=== PATIENT | male | born 1945 | race Caucasian/White ===

== ENCOUNTER 2018-01-01 09:57 | Inpatient (IN) | payer MEDICARE, BC ==
[~2018-01-01 09:57] MED LIST: EPINEPHrine 10 ML SYRINGE (0.1 MG/ML) ONE; SODIUM BICARB 8.4% 50 ML SYR (1 MEQ/ML) ONE
[2018-01-01 10:32] LABS: Glucose,Whole Blood 83 mg/dL (75-99)
[2018-01-01 10:57] LABS: ABG HCO3 17 mmol/L (21-25); ABG Oxygen Saturation 97.9 % (94-97); ABG PCO2 34 mmHg (35-45); ABG PO2 >400 mmHg (83-108); ABG TCO2 18 mmol/L (19-24)
--- NOTE | 2018-01-01 11:01 | ED ---
General Adult HPI - General Chief complaint: Cardiac Arrest/CPR Stated complaint: CARDIAC ARREST Source: EMS Mode of arrival: EMS Limitations: altered mental status - History of Present Illness Initial comments: Dictation was produced using [employer] dictation software. please excuse any grammatical, word or spelling errors. Chief Complaint: 72-year-old male with past medical history of end-stage renal disease on dialysis, cardiomyopathy, gout presents after cardiac arrest. History of Present Illness: Patient unable to provide HPI this time secondary to mental status. He is obtunded. Patient brought in by EMS. Approximately 30 minutes prior to arrival patient syncopized at the stop of the stairs and he was found to be asystole by EMS. CPR was started. Patient was undergoing CPR for approximately 10 minutes by prehospital staff. - Related Data Home Medications Medication Instructions Recorded Confirmed Acetaminophen/Diphenhydramine 1 tab PO HS 01/01/18 01/01/18 [Tylenol PM 500-25mg] Allopurinol [Zyloprim] 100 mg PO DAILY 01/01/18 01/01/18 Aspirin EC [Ecotrin Low Dose] 81 mg PO DAILY 01/01/18 01/01/18 Calcium Acetate [Phoslo] 667 mg PO ACHS 01/01/18 01/01/18 Docusate [Colace] 100 mg PO BID PRN 01/01/18 01/01/18 Ethyl Chloride [place] 1 spray TOPICAL TUTHSA 01/01/18 01/01/18 FLUoxetine HCL [PROzac] 40 mg PO DAILY 01/01/18 01/01/18 Fluticasone Nasal [place] [Flonase 2 spr EA NOSTRIL DAILY 01/01/18 01/01/18 Nasal [place]] Furosemide [Lasix] 60 mg PO BID 01/01/18 01/01/18 Gabapentin [Neurontin] 100 mg PO DAILY 01/01/18 01/01/18 Gabapentin [Neurontin] 200 mg PO HS 01/01/18 01/01/18 Lisinopril [Zestril] 10 mg PO SUMOWEFR 01/01/18 01/01/18 Loratadine [Claritin] 10 mg PO DAILY 01/01/18 01/01/18 Midodrine [ProAmatine] 10 mg PO DIRECTED 01/01/18 01/01/18 Multivits,Th W-Ca,Fe,Oth Min 1 tab PO DAILY 01/01/18 01/01/18 [Therapeutic M] Mupirocin 2% Oint [Bactroban 2% 1 applic TOPICAL BID 01/01/18 01/01/18 Oint] Omeprazole [PriLOSEC] 40 mg PO DAILY 01/01/18 01/01/18 Simvastatin [Zocor] 20 mg PO HS 01/01/18 01/01/18 amLODIPine [Norvasc] 10 mg PO DAILY 01/01/18 01/01/18 traMADol HCL [Ultram] 50 mg PO Q6HR 01/01/18 01/01/18 Allergies Allergy/AdvReac Type Severity Reaction Status Date / Time No Known Allergies Allergy Verified 01/01/18 10:55 Review of Systems ROS Statement: Those systems with pertinent positive or pertinent negative responses have been documented in the HPI. ROS Other: All systems not noted in ROS Statement are negative. Past Medical History Past Medical History: Unable to Obtain History of Any Multi-Drug Resistant Organisms: Unobtainable Past Surgical History: Unable to Obtain Past Psychological History: Unable to Obtain Smoking Status: Unknown if ever smoked Past Alcohol Use History: Unable to Obtain Past Drug Use History: Unable to Obtain - Past Family History Father History Unknown: Yes Additional Family Medical History / Comment(s): PT WAS ADOPTED Mother History Unknown: Yes Additional Family Medical History / Comment(s): PT WAS ADOPTED General Exam - General Exam Comments Initial Comments: PHYSICAL EXAM: General Impression: Obtunded HEENT: Abrasion to the left forehead. Pupils fixed however not dilated Cardiovascular: Pulseless Chest: Bilateral breath sounds Abdomen: Fluid wave, nonrigid abdomen Musculoskeletal: No asymmetrical peripheral edema to the lower extremities Motor: No movement Neurological: No movement, pupils 4 mm and reactive Skin: Intact with no visualized rashes Limitations: altered mental status Course Vital Signs 01/01/18 01/01/18 01/01/18 09:57 09:58 10:23 Temperature 95.5 F L Pulse Rate 0 L 105 H 79 Respiratory 0 L 16 20 Rate Blood Pressure 147/56 105/59 O2 Sat by Pulse 88 L 96 100 Oximetry 01/01/18 01/01/18 01/01/18 10:53 11:05 11:28 Temperature Pulse Rate 86 85 Respiratory 20 20 Rate Blood Pressure 85/50 75/50 109/59 O2 Sat by Pulse 100 100 100 Oximetry 01/01/18 01/01/18 01/01/18 12:00 12:30 13:06 Temperature 95 F L 95 F L Pulse Rate 87 93 87 Respiratory 20 18 20 Rate Blood Pressure 120/60 108/62 104/44 O2 Sat by Pulse 100 100 100 Oximetry 01/01/18 01/01/18 01/01/18 13:19 14:04 14:16 Temperature 95.3 F L 95.3 F L Pulse Rate 96 83 89 Respiratory 20 20 18 Rate Blood Pressure 100/42 98/54 88/42 O2 Sat by Pulse 100 100 100 Oximetry 01/01/18 14:26 Temperature Pulse Rate 92 Respiratory 20 Rate Blood Pressure 109/45 O2 Sat by Pulse 100 Oximetry Procedures - Arterial Line No standard instances Consent Obtained: emergent situation Time Out Performed: Yes Size (Gauge): 18 Technique Used: guide wire technique Post-Procedure: line sutured into place Patient Tolerated Procedure: well Complications: none - Central Line Placement Left SC Consent Obtained: emergent situation Time Out Performed: No Patient Placed on Monitor/Pulse Ox: Yes MD Prep: mask, gown, gloves Central Line Prep: Chlorhexidine scrub Ultrasound Used for Placement: No Central Line Lumen Inserted: triple Central Line Position: good blood return Dressing Applied: Tegaderm Post Procedure X-Ray: tip of catheter in good position Patient Tolerated Procedure: well Complications: none - FAST Exam Fluid in Morison's pouch: Yes Fluid in Splenorenal Junction: Yes Fluid around bladder, Transverse view: Yes Fluid around bladder, Sagittal view: Yes Limited Echocardiogram view: subxiphoid Fluid in Pericardial Sac: No Gross Wall Motion Abnormality: Yes - Intubation Time Out Performed: No Laryngoscope: Unger Size: 4 ET Tube Size: 7.5 ET Tube Uncuffed: No Tube Secured Depth (cm): 23 Tube Secured Location: lips Tube Placement Confirmation: visualized tube passing through cords Patient Tolerated Procedure: well Intubation Complications: none Medical Decision Making - Medical Decision Making ED course: 72-year-old male past medical history of end-stage renal disease presents after cardiac arrest. Patient was pulseless upon arrival. CPR was continued. Patient was intubated. Patient was GCS 3. Multiple rounds of CPR was performed. Return of spontaneous circulation was achieved. Right radial arterial line and left subclavian line were placed. EKG was faxed to adjustment examiner. Pending discussion with cardiology.Laboratory evaluation obtained. CBC is unremarkable. Coag panel shows INR 1.2. Blood gas shows mild acidosis with decreased bicarbonate signifying metabolic acidosis. Metabolic panel shows potassium of 5.6. Patient did receive IV calcium during code. Patient also given some bicarb. Carbon dioxide is 15. Lactic acidosis of 19.1. He is currently on fluids. Mild nonspecific transaminitis. Troponin level was 0.035. Premature peptide is 50,000. Urinalysis shows 33 white blood cells. There is suspicion that patient experience an arrhythmia causing him to have cardiac arrest. Return of spontaneous circulation was achieved. Patient is stable on levo for drip. X-ray was obtained showing good positioning of ET tube and subclavian. Computed tomography scan of the head was obtained showing no evidence of acute intracranial process. Computed tomography scan of the chest abdomen pelvis was obtained showing cirrhotic liver. There is concern that intra-abdominal fluid may represent hemorrhaging. There also appears to be possible coronary artery aneurysm. Patient started on intravenous antibiotics. He will be admitted to intensive care unit for vent-dependent respiratory failure, undifferentiated shock, cardiac arrest EKG Interpretation: A 12 lead EKG was obtained. It was interpreted by myself and attending physician. There is a P wave before every QRS complex. Rate is 122. Rhythm is wide-complex tachycardia, [place] interval undetermined, QS 150, QTc 5:30. There appears to be diffuse ST segment depressions to the lateral leads. - Lab Data Result diagrams: 01/04/18 04:45 01/04/18 04:45 Lab Results 01/01/18 01/01/18 01/01/18 Range/Units 10:11 10:44 10:44 WBC 9.2 (3.8-10.6) k/uL RBC 3.36 L (4.30-5.90) m/uL Hgb 9.9 L (13.0-17.5) gm/dL Hct 31.7 L (39.0-53.0) % MCV 94.1 (80.0-100.0) fL MCH 29.5 (25.0-35.0) pg MCHC 31.4 (31.0-37.0) g/dL RDW 14.7 (11.5-15.5) % Plt Count 406 (150-450) k/uL Neutrophils % 66 % Lymphocytes % 21 % Monocytes % 4 % Eosinophils % 5 % Basophils % 0 % Neutrophils # 6.1 (1.3-7.7) k/uL Lymphocytes # 2.0 (1.0-4.8) k/uL Monocytes # 0.4 (0-1.0) k/uL Eosinophils # 0.5 (0-0.7) k/uL Basophils # 0.0 (0-0.2) k/uL Hypochromasia Moderate PT (9.0-12.0) sec INR (<1.2) Sample Site ABG pH (7.35-7.45) ABG pCO2 (35-45) mmHg ABG pO2 (83-108) mmHg ABG HCO3 (21-25) mmol/L ABG Total CO2 (19-24) mmol/L ABG O2 Saturation (94-97) % ABG Base Excess mmol/L FiO2 % Sodium 137 (137-145) mmol/L Potassium 5.6 H (3.5-5.1) mmol/L Chloride 100 (98-107) mmol/L Carbon Dioxide 15 L (22-30) mmol/L Anion Gap 22 mmol/L BUN 98 H* (9-20) mg/dL Creatinine 7.90 H* (0.66-1.25) mg/dL Est GFR (CKD-EPI)AfAm 7 (>60 ml/min/1.73 sqM) Est GFR (CKD-EPI)NonAf 6 (>60 ml/min/1.73 sqM) Glucose 116 H (74-99) mg/dL POC Glucose (mg/dL) 83 (75-99) mg/dL POC Glu Cardiac Rehab Nurse ID Jf Claros Estimated Ave Glu mg/dL Hemoglobin A1c (4.0-6.0) % Lactic Ac Sepsis Rflx Plasma Lactic Acid Ruben (0.7-2.0) mmol/L Calcium 9.6 (8.4-10.2) mg/dL Phosphorus 8.2 H* (2.5-4.5) mg/dL Magnesium 1.7 (1.6-2.3) mg/dL Total Bilirubin 0.7 (0.2-1.3) mg/dL AST 61 H (17-59) U/L ALT 19 L (21-72) U/L Alkaline Phosphatase 132 H (38-126) U/L Total Creatine Kinase (55-170) U/L CK-MB (CK-2) (0.0-2.4) ng/mL CK-MB (CK-2) Rel Index Troponin I (0.000-0.034) ng/mL NT-Pro-B Natriuret Pep pg/mL Total Protein 5.7 L (6.3-8.2) g/dL Albumin 2.9 L (3.5-5.0) g/dL Cortisol ug/dL Urine Color Urine Appearance (Clear) Urine pH (5.0-8.0) Ur Specific [place] (1.001-1.035) Urine Protein (Negative) Urine Glucose (UA) (Negative) Urine Ketones (Negative) Urine Blood (Negative) Urine Nitrite (Negative) Urine Bilirubin (Negative) Urine Urobilinogen (<2.0) mg/dL Ur Leukocyte Esterase (Negative) Urine RBC (0-5) /hpf Urine WBC (0-5) /hpf Urine Sperm (None) /hpf Urine Opiates Screen (NotDetected) Ur Oxycodone Screen (NotDetected) Urine Methadone Screen (NotDetected) Ur Propoxyphene Screen (NotDetected) Ur Barbiturates Screen (NotDetected) U Tricyclic Antidepress (NotDetected) Ur Phencyclidine Scrn (NotDetected) Ur Amphetamines Screen (NotDetected) U Methamphetamines Scrn (NotDetected) U Benzodiazepines Scrn (NotDetected) Urine Cocaine Screen (NotDetected) U Marijuana (THC) Screen (NotDetected) 01/01/18 01/01/18 01/01/18 Range/Units 10:44 10:44 10:44 WBC (3.8-10.6) k/uL RBC (4.30-5.90) m/uL Hgb (13.0-17.5) gm/dL Hct (39.0-53.0) % MCV (80.0-100.0) fL MCH (25.0-35.0) pg MCHC (31.0-37.0) g/dL RDW (11.5-15.5) % Plt Count (150-450) k/uL Neutrophils % % Lymphocytes % % Monocytes % % Eosinophils % % Basophils % % Neutrophils # (1.3-7.7) k/uL Lymphocytes # (1.0-4.8) k/uL Monocytes # (0-1.0) k/uL Eosinophils # (0-0.7) k/uL Basophils # (0-0.2) k/uL Hypochromasia PT 11.3 (9.0-12.0) sec INR 1.2 H (<1.2) Sample Site ABG pH (7.35-7.45) ABG pCO2 (35-45) mmHg ABG pO2 (83-108) mmHg ABG HCO3 (21-25) mmol/L ABG Total CO2 (19-24) mmol/L ABG O2 Saturation (94-97) % ABG Base Excess mmol/L FiO2 % Sodium (137-145) mmol/L Potassium (3.5-5.1) mmol/L Chloride (98-107) mmol/L Carbon Dioxide (22-30) mmol/L Anion Gap mmol/L BUN (9-20) mg/dL Creatinine (0.66-1.25) mg/dL Est GFR (CKD-EPI)AfAm (>60 ml/min/1.73 sqM) Est GFR (CKD-EPI)NonAf (>60 ml/min/1.73 sqM) Glucose (74-99) mg/dL POC Glucose (mg/dL) (75-99) mg/dL POC Glu Cardiac Rehab Nurse ID Estimated Ave Glu mg/dL Hemoglobin A1c (4.0-6.0) % Lactic Ac Sepsis Rflx Plasma Lactic Acid Ruben (0.7-2.0) mmol/L Calcium (8.4-10.2) mg/dL Phosphorus (2.5-4.5) mg/dL Magnesium (1.6-2.3) mg/dL Total Bilirubin (0.2-1.3) mg/dL AST (17-59) U/L ALT (21-72) U/L Alkaline Phosphatase (38-126) U/L Total Creatine Kinase 84 (55-170) U/L CK-MB (CK-2) 2.0 (0.0-2.4) ng/mL CK-MB (CK-2) Rel Index 2.4 Troponin I 0.035 H* (0.000-0.034) ng/mL NT-Pro-B Natriuret Pep 30156 pg/mL Total Protein (6.3-8.2) g/dL Albumin (3.5-5.0) g/dL Cortisol ug/dL Urine Color Urine Appearance (Clear) Urine pH (5.0-8.0) Ur Specific [place] (1.001-1.035) Urine Protein (Negative) Urine Glucose (UA) (Negative) Urine Ketones (Negative) Urine Blood (Negative) Urine Nitrite (Negative) Urine Bilirubin (Negative) Urine Urobilinogen (<2.0) mg/dL Ur Leukocyte Esterase (Negative) Urine RBC (0-5) /hpf Urine WBC (0-5) /hpf Urine Sperm (None) /hpf Urine Opiates Screen (NotDetected) Ur Oxycodone Screen (NotDetected) Urine Methadone Screen (NotDetected) Ur Propoxyphene Screen (NotDetected) Ur Barbiturates Screen (NotDetected) U Tricyclic Antidepress (NotDetected) Ur Phencyclidine Scrn (NotDetected) Ur Amphetamines Screen (NotDetected) U Methamphetamines Scrn (NotDetected) U Benzodiazepines Scrn (NotDetected) Urine Cocaine Screen (NotDetected) U Marijuana (THC) Screen (NotDetected) 01/01/18 01/01/18 01/01/18 Range/Units 10:44 10:44 10:44 WBC (3.8-10.6) k/uL RBC (4.30-5.90) m/uL Hgb (13.0-17.5) gm/dL Hct (39.0-53.0) % MCV (80.0-100.0) fL MCH (25.0-35.0) pg MCHC (31.0-37.0) g/dL RDW (11.5-15.5) % Plt Count (150-450) k/uL Neutrophils % % Lymphocytes % % Monocytes % % Eosinophils % % Basophils % % Neutrophils # (1.3-7.7) k/uL Lymphocytes # (1.0-4.8) k/uL Monocytes # (0-1.0) k/uL Eosinophils # (0-0.7) k/uL Basophils # (0-0.2) k/uL Hypochromasia PT (9.0-12.0) sec INR (<1.2) Sample Site ABG pH (7.35-7.45) ABG pCO2 (35-45) mmHg ABG pO2 (83-108) mmHg ABG HCO3 (21-25) mmol/L ABG Total CO2 (19-24) mmol/L ABG O2 Saturation (94-97) % ABG Base Excess mmol/L FiO2 % Sodium (137-145) mmol/L Potassium (3.5-5.1) mmol/L Chloride (98-107) mmol/L Carbon Dioxide (22-30) mmol/L Anion Gap mmol/L BUN (9-20) mg/dL Creatinine (0.66-1.25) mg/dL Est GFR (CKD-EPI)AfAm (>60 ml/min/1.73 sqM) Est GFR (CKD-EPI)NonAf (>60 ml/min/1.73 sqM) Glucose (74-99) mg/dL POC Glucose (mg/dL) (75-99) mg/dL POC Glu Cardiac Rehab Nurse ID Estimated Ave Glu mg/dL 97 Hemoglobin A1c 5.0 (4.0-6.0) % Lactic Ac Sepsis Rflx Plasma Lactic Acid Ruben 9.1 H* (0.7-2.0) mmol/L Calcium (8.4-10.2) mg/dL Phosphorus (2.5-4.5) mg/dL Magnesium (1.6-2.3) mg/dL Total Bilirubin (0.2-1.3) mg/dL AST (17-59) U/L ALT (21-72) U/L Alkaline Phosphatase (38-126) U/L Total Creatine Kinase (55-170) U/L CK-MB (CK-2) (0.0-2.4) ng/mL CK-MB (CK-2) Rel Index Troponin I (0.000-0.034) ng/mL NT-Pro-B Natriuret Pep pg/mL Total Protein (6.3-8.2) g/dL Albumin (3.5-5.0) g/dL Cortisol 25 ug/dL Urine Color Urine Appearance (Clear) Urine pH (5.0-8.0) Ur Specific [place] (1.001-1.035) Urine Protein (Negative) Urine Glucose (UA) (Negative) Urine Ketones (Negative) Urine Blood (Negative) Urine Nitrite (Negative) Urine Bilirubin (Negative) Urine Urobilinogen (<2.0) mg/dL Ur Leukocyte Esterase (Negative) Urine RBC (0-5) /hpf Urine WBC (0-5) /hpf Urine Sperm (None) /hpf Urine Opiates Screen (NotDetected) Ur Oxycodone Screen (NotDetected) Urine Methadone Screen (NotDetected) Ur Propoxyphene Screen (NotDetected) Ur Barbiturates Screen (NotDetected) U Tricyclic Antidepress (NotDetected) Ur Phencyclidine Scrn (NotDetected) Ur Amphetamines Screen (NotDetected) U Methamphetamines Scrn (NotDetected) U Benzodiazepines Scrn (NotDetected) Urine Cocaine Screen (NotDetected) U Marijuana (THC) Screen (NotDetected) 01/01/18 01/01/18 01/01/18 Range/Units 10:51 10:52 11:00 WBC (3.8-10.6) k/uL RBC (4.30-5.90) m/uL Hgb (13.0-17.5) gm/dL Hct (39.0-53.0) % MCV (80.0-100.0) fL MCH (25.0-35.0) pg MCHC (31.0-37.0) g/dL RDW (11.5-15.5) % Plt Count (150-450) k/uL Neutrophils % % Lymphocytes % % Monocytes % % Eosinophils % % Basophils % % Neutrophils # (1.3-7.7) k/uL Lymphocytes # (1.0-4.8) k/uL Monocytes # (0-1.0) k/uL Eosinophils # (0-0.7) k/uL Basophils # (0-0.2) k/uL Hypochromasia PT (9.0-12.0) sec INR (<1.2) Sample Site ollie ABG pH 7.30 L (7.35-7.45) ABG pCO2 34 L (35-45) mmHg ABG pO2 >400 H (83-108) mmHg ABG HCO3 17 L (21-25) mmol/L ABG Total CO2 18 L (19-24) mmol/L ABG O2 Saturation 97.9 H (94-97) % ABG Base Excess -10.0 mmol/L FiO2 100 % Sodium (137-145) mmol/L Potassium (3.5-5.1) mmol/L Chloride (98-107) mmol/L Carbon Dioxide (22-30) mmol/L Anion Gap mmol/L BUN (9-20) mg/dL Creatinine (0.66-1.25) mg/dL Est GFR (CKD-EPI)AfAm (>60 ml/min/1.73 sqM) Est GFR (CKD-EPI)NonAf (>60 ml/min/1.73 sqM) Glucose (74-99) mg/dL POC Glucose (mg/dL) 114 H (75-99) mg/dL POC Glu Cardiac Rehab Nurse ID Louann Ren Estimated Ave Glu mg/dL Hemoglobin A1c (4.0-6.0) % Lactic Ac Sepsis Rflx Plasma Lactic Acid Ruben (0.7-2.0) mmol/L Calcium (8.4-10.2) mg/dL Phosphorus (2.5-4.5) mg/dL Magnesium (1.6-2.3) mg/dL Total Bilirubin (0.2-1.3) mg/dL AST (17-59) U/L ALT (21-72) U/L Alkaline Phosphatase (38-126) U/L Total Creatine Kinase (55-170) U/L CK-MB (CK-2) (0.0-2.4) ng/mL CK-MB (CK-2) Rel Index Troponin I (0.000-0.034) ng/mL NT-Pro-B Natriuret Pep pg/mL Total Protein (6.3-8.2) g/dL Albumin (3.5-5.0) g/dL Cortisol ug/dL Urine Color Yellow Urine Appearance Cloudy (Clear) Urine pH 6.5 (5.0-8.0) Ur Specific [place] 1.012 (1.001-1.035) Urine Protein 2+ H (Negative) Urine Glucose (UA) Negative (Negative) Urine Ketones Negative (Negative) Urine Blood Negative (Negative) Urine Nitrite Negative (Negative) Urine Bilirubin Negative (Negative) Urine Urobilinogen <2.0 (<2.0) mg/dL Ur Leukocyte Esterase Small H (Negative) Urine RBC 3 (0-5) /hpf Urine WBC 33 H (0-5) /hpf Urine Sperm Many H (None) /hpf Urine Opiates Screen (NotDetected) Ur Oxycodone Screen (NotDetected) Urine Methadone Screen (NotDetected) Ur Propoxyphene Screen (NotDetected) Ur Barbiturates Screen (NotDetected) U Tricyclic Antidepress (NotDetected) Ur Phencyclidine Scrn (NotDetected) Ur Amphetamines Screen (NotDetected) U Methamphetamines Scrn (NotDetected) U Benzodiazepines Scrn (NotDetected) Urine Cocaine Screen (NotDetected) U Marijuana (THC) Screen (NotDetected) 01/01/18 01/01/18 Range/Units 11:00 12:02 WBC (3.8-10.6) k/uL RBC (4.30-5.90) m/uL Hgb (13.0-17.5) gm/dL Hct (39.0-53.0) % MCV (80.0-100.0) fL MCH (25.0-35.0) pg MCHC (31.0-37.0) g/dL RDW (11.5-15.5) % Plt Count (150-450) k/uL Neutrophils % % Lymphocytes % % Monocytes % % Eosinophils % % Basophils % % Neutrophils # (1.3-7.7) k/uL Lymphocytes # (1.0-4.8) k/uL Monocytes # (0-1.0) k/uL Eosinophils # (0-0.7) k/uL Basophils # (0-0.2) k/uL Hypochromasia PT (9.0-12.0) sec INR (<1.2) Sample Site ABG pH (7.35-7.45) ABG pCO2 (35-45) mmHg ABG pO2 (83-108) mmHg ABG HCO3 (21-25) mmol/L ABG Total CO2 (19-24) mmol/L ABG O2 Saturation (94-97) % ABG Base Excess mmol/L FiO2 % Sodium (137-145) mmol/L Potassium (3.5-5.1) mmol/L Chloride (98-107) mmol/L Carbon Dioxide (22-30) mmol/L Anion Gap mmol/L BUN (9-20) mg/dL Creatinine (0.66-1.25) mg/dL Est GFR (CKD-EPI)AfAm (>60 ml/min/1.73 sqM) Est GFR (CKD-EPI)NonAf (>60 ml/min/1.73 sqM) Glucose (74-99) mg/dL POC Glucose (mg/dL) (75-99) mg/dL POC Glu Cardiac Rehab Nurse ID Estimated Ave Glu mg/dL Hemoglobin A1c (4.0-6.0) % Lactic Ac Sepsis Rflx Y Plasma Lactic Acid Ruben (0.7-2.0) mmol/L Calcium (8.4-10.2) mg/dL Phosphorus (2.5-4.5) mg/dL Magnesium (1.6-2.3) mg/dL Total Bilirubin (0.2-1.3) mg/dL AST (17-59) U/L ALT (21-72) U/L Alkaline Phosphatase (38-126) U/L Total Creatine Kinase (55-170) U/L CK-MB (CK-2) (0.0-2.4) ng/mL CK-MB (CK-2) Rel Index Troponin I (0.000-0.034) ng/mL NT-Pro-B Natriuret Pep pg/mL Total Protein (6.3-8.2) g/dL Albumin (3.5-5.0) g/dL Cortisol ug/dL Urine Color Urine Appearance (Clear) Urine pH (5.0-8.0) Ur Specific [place] (1.001-1.035) Urine Protein (Negative) Urine Glucose (UA) (Negative) Urine Ketones (Negative) Urine Blood (Negative) Urine Nitrite (Negative) Urine Bilirubin (Negative) Urine Urobilinogen (<2.0) mg/dL Ur Leukocyte Esterase (Negative) Urine RBC (0-5) /hpf Urine WBC (0-5) /hpf Urine Sperm (None) /hpf Urine Opiates Screen Not Detected (NotDetected) Ur Oxycodone Screen Not Detected (NotDetected) Urine Methadone Screen Not Detected (NotDetected) Ur Propoxyphene Screen Not Detected (NotDetected) Ur Barbiturates Screen Not Detected (NotDetected) U Tricyclic Antidepress Not Detected (NotDetected) Ur Phencyclidine Scrn Not Detected (NotDetected) Ur Amphetamines Screen Not Detected (NotDetected) U Methamphetamines Scrn Not Detected (NotDetected) U Benzodiazepines Scrn Not Detected (NotDetected) Urine Cocaine Screen Not Detected (NotDetected) U Marijuana (THC) Screen Not Detected (NotDetected) Critical Care Time Critical Care Time: Yes Total Critical Care Time: 47 Disposition Clinical Impression: Cardiac arrest Disposition: ADMITTED IP TO THIS HOSP Condition: Critical Time of Disposition: 01:41
[2018-01-01 11:04] LABS: Glucose,Whole Blood 114 mg/dL (75-99)
--- NOTE | 2018-01-01 11:16 | XR ---
EXAMINATION TYPE: XR chest 1V DATE OF EXAM: 01/01/2018 COMPARISON: NONE HISTORY: 72-year-old male cardiac arrest TECHNIQUE: Single frontal view of the chest is obtained. FINDINGS: Low lung volumes and lordotic positioning limiting assessment. ET tube is present located 2.8 cm from the luzma. Heart mildly enlarged. Perihilar densities particularly on the left. No significant pleu ral effusion seen on this limited projection. NG tube is satisfactory. IMPRESSION: Satisfactory ET and NG tubes. Exam limitations due to positioning and low lung volumes. Cardiomegaly with hypoventilatory changes and suspected developing pulmonary vascular congestion.
--- NOTE | 2018-01-01 11:22 | XR ---
EXAMINATION TYPE: XR chest 1V DATE OF EXAM: 01/01/2018 COMPARISON: 01/01/2018 earlier exam INDICATION: Pain TECHNIQUE: Single frontal view of the chest is obtained. FINDINGS: The heart size is enlarged. The pulmonary vasculature is prominent. There is a mild infiltrate in the left upper lobe. Endotracheal tube is present with tip above the luzma. Left central venous catheter is in place with the tip in the right atrium. No pneumothorax is evident. Degree of inspiration is limited. IMPRESSION: 1. Mild left upper lobe infiltrate. 2. Lines and catheters discussed above. 3. Placement of a left central venous catheter with tip in the right atrium. No pneumothorax is evide nt.
[2018-01-01] MEDS ORDERED: NOREPINEPHRIN 4 MG-0.9% NS PMX 4 MG/250 ML ML IV ONE (11:25)
[2018-01-01] MEDS ORDERED: NOREPINEPHRINE 4 MG in DEXTROSE 5% IN WATER 250 ML IV ONE ×2 (11:30)
[2018-01-01 11:50] LABS: Basophils % (A) 0 %; Eosinophils # (A) 0.5 k/uL (0-0.7); Eosinophils % (A) 5 %; HCT 31.7 % (39.0-53.0); HGB 9.9 gm/dL (13.0-17.5); Hypochromasia Moderate; Lymphocytes % (A) 21 %; MCH 29.5 pg (25.0-35.0); MCHC 31.4 g/dL (31.0-37.0); MCV 94.1 fL (80.0-100.0); Mean Platelet Volume 7.2; Monocytes # (A) 0.4 k/uL (0-1.0); Monocytes % (A) 4 %; Neutrophils # (A) 6.1 k/uL (1.3-7.7); Neutrophils % (A) 66 %; Platelet Count 406 k/uL (150-450); RBC 3.36 m/uL (4.30-5.90); RDW 14.7 % (11.5-15.5); WBC 9.2 k/uL (3.8-10.6)
[2018-01-01 11:53] LABS: Albumin 2.9 g/dL (3.5-5.0); Calcium 9.6 mg/dL (8.4-10.2); Magnesium 1.7 mg/dL (1.6-2.3); Potassium 5.6 mmol/L (3.5-5.1); Total Bilirubin 0.7 mg/dL (0.2-1.3); Total Protein 5.7 g/dL (6.3-8.2)
[2018-01-01 11:59] LABS: INR 1.2 (<1.2); Prothrombin Time 11.3 sec (9.0-12.0)
[2018-01-01 12:01] LABS: Appearance,Urine Cloudy (Clear); Bilirubin,Urine Negative (Negative); Blood,Urine Negative (Negative); Color,Urine Yellow; Glucose,Urine (UA) Negative (Negative); Ketones,Urine Negative (Negative); Leukocyte Esterase,Urine Small (Negative); Nitrite,Urine Negative (Negative); PH, Urine 6.5 (5.0-8.0); Protein,Urine 2+ (Negative); RBC,Urine 3 /hpf (0-5); Specific Gravity,Urine 1.012 (1.001-1.035); Sperm,Urine Many /hpf; Urobilinogen,Urine <2.0 mg/dL (<2.0); WBC,Urine 33 /hpf (0-5)
[2018-01-01 12:01] LABS: Phosphorus 8.2 mg/dL (2.5-4.5)
[2018-01-01] MEDS ORDERED: VANCOMYCIN 1,500 MG in SODIUM CHLORIDE 0.9% 250 ML IVPB STA (12:04)
[2018-01-01] MEDS ORDERED: AZITHROMYCIN 500 MG in DEXTROSE 5% IN WATER 250 ML IVPB STA ×2 (12:04)
[2018-01-01] MEDS ORDERED: CEFEPIME 2 GM in SODIUM CHLORIDE 0.9% 50 ML IVPB STA (12:04)
[2018-01-01 12:29] LABS: Troponin I 0.035 ng/mL (0.000-0.034)
--- NOTE | 2018-01-01 12:41 | CT ---
EXAMINATION TYPE: CT brain [place] con DATE OF EXAM: 01/01/2018 COMPARISON: None HISTORY: 72-year-old male Syncopal episode today CT DLP: 1637.5 mGycm Automated exposure control for dose reduction was used. Technique: Examination of the head was done in axial plane without intravenous contrast. Coronal and sagittal reconstructions performed. CT of the cervical spine was obtained in axial plane without intravenous injection of contrast mater ial. Coronal and sagittal reformatted images were obtained from the axial views for evaluation of f ractures, spinal alignment and canal. FINDINGS: Head: There is no evidence of acute intracranial hemorrhage, acute ischemic changes, mass, mass-effect, or extra-axial fluid collection. There is no effacement of cerebral sulci or basal subarachnoid cister ns. There is no midline shift. Nuno-white matter distinction is preserved. There is mild to moderate generalized supratentorial volume loss. Mild ventriculomegaly likely second adamaris to central cerebral atrophy. Mild patchy periventricular white matter hypodensities. Paranasal sinuses and mastoid air cells well pneumatized. Orbits and globes appear intact. Cervical spine: The patient is intubated with NG tube also present. No craniocervical junction abnormality, or predental space widening. No prevertebral effusion identif ied. Retropharyngeal course of the left ICA. Bulky anterior endplate spondylosis suggesting dish. Alignment is maintained. No acute fracture of the cervical spine. Scattered uncovertebral joint and facet degenerative change with very minimal mild to moderate neurof oraminal narrowing. Sagittal and coronal reformatted images confirm above findings. COMBINED IMPRESSION: 1. No acute intracranial abnormality seen. Mild to moderate atrophy and mild changes of chronic small vessel ischemic disease. 2. No acute fracture or malalignment of the cervical spine. Changes of DISH and scattered facet/uncov ertebral joint arthropathy.
--- NOTE | 2018-01-01 12:43 | CONS ---
CONSULTATION Mr. Diallo is a 72-year-old male who is followed on a regular basis by Dr. Clarke, has a history of chronic persistent atrial fibrillation, status post Watchman procedure, history of end-stage renal disease, on hemodialysis, history of pulmonary fibrosis as well as liver ascites, who came into the emergency room with cardiac arrest. The history is obtained from the nursing staff. Apparently he was standing on the top of the stairs and fell and passed out, hit his head. CPR was initiated. There was episode of bradycardia, but no evidence of ventricular tachycardia. He did not require cardioversion. He received epinephrine and atropine. He is now in atrial fibrillation with controlled ventricular response. His blood pressure is running in the 80s. He is nonresponsive to painful stimuli. He was seen in the emergency room and scheduled to undergo CT scan of the head. Reviewing the records of Dr. Clarke, there is no documentation of obstructive coronary artery disease, although no clear details are available to me at this point. He has a history of atrial fibrillation, history of diabetes, hyperlipidemia, history of diastolic congestive heart failure and end-stage renal disease. His medication according to the notes available to me include allopurinol, amlodipine 10 mg daily, clonidine 0.1 mg daily, fluoxetine, furosemide, gabapentin, lisinopril 10 mg daily, loratadine, PhosLo, Plavix, Sensipar, simvastatin, tramadol, Tylenol, and eyedrops. REVIEW OF SYSTEMS: Not obtainable. PHYSICAL EXAMINATION: He is a 72-year-old male, intubated, nonresponsive to painful stimuli. Heart rate running in the 80s. Blood pressure 90/70. HEAD: Normocephalic. EYES: Sclerae nonicteric. Pupil nonreactive to light. NECK: No bruit. LUNGS: Clear to auscultation anteriorly. HEART: Irregularly, irregular. S1, S2, no S3 with systolic murmur, no diastolic murmur. ABDOMEN: Soft. Positive bowel sounds, no organomegaly. EXTREMITIES: Trace to 1+ edema. Chest x-ray raised the possibility of infiltrate versus congestion. EKG revealed wide complex rhythm with a right bundle branch block configuration, probably junctional tachycardia or atrial fibrillation with nonspecific ST-T wave changes, QS in leads 3 and AVF. IMPRESSION: 1. Cardiac arrest of unclear etiology. On the EKG, there is no clear evidence to suggest acute ischemic event. 2. History of end-stage renal disease, on hemodialysis. Scheduled for dialysis today. 3. History of atrial fibrillation, status post Watchman procedure. 4. History of hypertension. 5. Hyperlipidemia. 6. Diabetes mellitus. 7. History of liver cirrhosis according to the records available to me and has underwent paracentesis in the past. RECOMMENDATION: From the cardiac standpoint, I see no acute ischemic event. I do not believe that emergent cardiac catheterization is needed. Patient will need to undergo CT scan of the head to evaluate his brain in view of the fall. I will obtain echocardiogram, Doppler. Will obtain cardiac enzymes. He will be seen by the envelope maker and depending on the his progress, further recommendation will be made. Unfortunately, the prognosis is guarded. Thank you for this consult. Will follow with you. KEIRY / JACEK: [id number] /
--- NOTE | 2018-01-01 12:58 | CT ---
EXAMINATION TYPE: CT ChestAbdPelvis w con DATE OF EXAM: 01/01/2018 COMPARISON: None HISTORY: 72-year-old male Syncopal episode today, pain TECHNIQUE: Contiguous axial scanning of the chest, abdomen, and pelvis performed with IV Contrast, pa tient injected with 80 mL of Isovue 300. Coronal/sagittal reconstructions performed. CT DLP: 1589.2 mGycm Automated exposure control for dose reduction was used. FINDINGS: Patient scanned with arms down. This along with large body habitus causes artifacts limiting assessme nt. CHEST: Mild diffuse anasarca type changes. ET tube tip 2.7 cm above the luzma. NG tube courses into the sto mach. Heart borderline enlarged without pericardial effusion. There is a rounded 2.5 cm mixed density area along the expected course of the proximal circumflex artery, axial image 32. The exact etiology is un clear. There is motion at this level limiting assessment. Left CVC tip at the caval atrial junction. Ascending aorta border line ectatic at 3.5 cm. Moderate arthroscopic arch calcifications. Conventiona l arch vessel branching anatomy. Small left and trace right pleural effusions with adjacent atelectasis. Some calcified granulomas are present. Scattered nonenlarged mediastinal lymph nodes. No thoracic lymphadenopathy by CT size criteria. ABDOMEN: Nodular contour of the liver. Allowing for the extensive artifacts, no definite focal liver lesion. Gallbladder hydropic measuring 4.7 cm wide. No biliary ductal dilatation seen. Adrenal glands, spleen, and pancreas show no gross abnormality. The bilateral kidneys are atrophic. There is an exophytic 1.4 cm lesion lateral left kidney too small for accurate CT characterization, possible cyst. Incidental accessory right renal artery to the lowe r pole arising from the proximal right common iliac artery. There is a 2.3 cm nodule in the posterior left pararenal space, axial image 80 of uncertain etiology. No dilated small bowel or free air. Moderate colonic stool. There is large abdominopelvic ascites wit h moderate at this chronic calcifications throughout the abdominal aorta. Some soft tissue nodularity in the right perimedian lower abdomen along the anterior peritoneal linin g measuring 2.5 cm, axial image 121. There is increased density expanding the left iliac is at 4.0 cm, refer to axial image 116. No obvious abdominal lymphadenopathy. Pelvis: Large ascites fluid continues into the pelvis. Bladder is decompressed by Duran catheter. No pelvic l ymphadenopathy seen. Prostate gland measures 5.4 cm wide. Bones: Degenerative changes mid to lower lumbar spine and scattered mild endplate spondylosis throughout the thoracic spine. Suspect hemodialysis access in the left arm. IMPRESSION: 1. ANASARCA WITH SMALL LEFT AND TRACE RIGHT EFFUSIONS AND LARGE ABDOMINOPELVIC ASCITES. CORRELATE FOR FLUID OVERLOAD STATE. SUSPECT HEMODIALYSIS ACCESS IN THE LEFT ARM. 2. CIRRHOTIC MORPHOLOGY OF THE LIVER. 3. SOME SOFT TISSUE NODULARITY ALONG THE RIGHT PARAMEDIAN ANTERIOR PERITONEAL LINING COULD REPRESENT A SMALL AREA OF FOCAL HEMORRHAGE IN THE PERITONEAL SPACE OR SOFT TISSUE DEPOSIT FROM METASTATIC DISEA SE. FOLLOW-UP RECOMMENDED. 4. HETEROGENEOUS HYPERDENSE EXPANSION OF THE LEFT ILIACUS AT 4.0 CM. INTRAMUSCULAR HEMORRHAGE OR UNDE RLYING MASS ARE BOTH IN THE DIFFERENTIAL. FOLLOW UP HEMOGLOBIN LEVELS AND CORRELATE FOR ANTICOAGULATI ON STATUS. 5. INDETERMINATE 2.3 CM ROUND SOFT TISSUE LESION IN THE POSTERIOR LEFT PARARENAL SPACE. SHORT INTERVA L FOLLOW-UP RECOMMENDED TO EXCLUDE A NEOPLASTIC ETIOLOGY. 6. A 2.5 CM PARTIALLY CALCIFIED ROUND LESION AT THE LEVEL OF THE PROXIMAL CIRCUMFLEX ARTERY SUSPICIO US FOR A CORONARY ARTERY ANEURYSM. 7. HYDROPIC GALLBLADDER PROBABLY RELATING TO FASTING STATE. IF CONCERN FOR EARLY ACUTE CHOLECYSTITIS, FOLLOW-UP HIDA SCAN.
[2018-01-01] MEDS ORDERED: NALOXONE 0.4 MG/ML 1 ML VIAL IV PRN (13:15)
[2018-01-01] MEDS ORDERED: MIDODRINE 5 MG TAB PO SCH (14:00)
--- NOTE | 2018-01-01 14:00 | P.CNPUL ---
History of Present Illness Consult date: 01/01/18 Chief complaint: Acute cardiopulmonary arrest History of present illness: 72-year-old male patient, known history of end-stage renal disease on hemodialysis through a AV fistula in the left upper extremity, in addition to history of chronic atrial fibrillation and the patient has undergone a watchman' s procedure, congestion heart failure/diastolic dysfunction and hyperlipidemia, presented to the emergency department with a cardiac arrest. The patient was at home with his significant other. He was using a walker and he was trying to go down the steps. He called his significant other and he told her that he was not feeling well. Following that the significant other heard a noise and apparently the patient got colds at the edge of the carpet while utilizing the walker and he fell on the steps and he was found to be on the top 3 steps on his home staircase. He was still conscious. The significant other came in for help however she was unable to move the patient. By that time she decided to call EMS. Sometime between the phone call and EMS arrival the patient lost consciousness. The exact duration of the loss of consciousness and cardiac pulmonary arrest is not known. At the time of arrival, the patient was found to be in asystole. CPR was initiated and the patient was given a dose of epinephrine. The patient was then brought into the emergency department and upon arrival he was still receiving CPR. He arrived to the ED and another 14 minutes of resuscitation was done during which the patient received 3 additional dose of epinephrine for a PEA rhythm. The patient was intubated. After 40 minutes of resuscitation the patient had return of circulation and blood pressure was obtained. Immediately triple-lumen catheter was inserted and the patient was started on pressors and currently the patient on 8 mics of norepinephrine infusion. The patient is in atrial fibrillation rhythm. CAT scan of the brain was done and a CAT scan of the C-spine showed no abnormalities. No evidence of any intracranial hemorrhage or any acute ischemic changes or mass effect or any fluid collection. The patient also had a CAT scan of the chest abdomen and pelvis which showed diffuse anasarca and ascites in addition to a cirrhotic morphology of the liver. There was also a hydropic gallbladder. Soft tissue nodularity along the right paramedial anterior peritoneal lining that raised the suspicion for any focal hemorrhage in the peritoneal space. There was also concern for a 4 cm intramuscular hemorrhage or an underlying mass in the left iliac area/muscle. Another indeterminate 2.3 cm round soft tissue lesion in the posterior left pararenal space of an unknown significance. I evaluated this patient in the emergency department. The patient was completely unresponsive. He was comatose. He was not withdrawing to painful stimulation. He was in a mechanical ventilator on assist control mode of ventilation. The patient had a Duran catheter with minimal amount of urine output thus far. In general he does not produce significant amount of urine output. The patient had no leukocytosis. Hemoglobin was at 9.9. The patient' s potassium level at time of admission was 5.6. The patient had a BUN of 19 and a creatinine of 7.9. His initial lactic acid level was at 9.1. LFT showed a bilirubin of 0.7 with a AST of 61 and ALT of 19. Post intubation blood gases showed a pH of 7.3 with a pCO2 of 34 and pO2 of more than 400 and this was done and FiO2 of 100%. The BNP level was 50,000+ and the urinalysis showed 33 WBCs. First set of troponin was at 0.035. EKG showed a atrial fibrillation rhythm with a left exudative deviation and right bundle branch block pattern. He was receiving external warming through a bear hugger for a temperature of 95.0F. No seizure activity is noted. 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) , diabetes mellitus, hypertension, CHF with diastolic dysfunction, chronic atrial fibrillation, hypoproteinemia and history of anasarca, history of stroke with left-sided weakness, history of intermittent falls History of Any Multi-Drug Resistant Organisms: None Reported Past Surgical History: Unable to Obtain Additional Past Surgical History / Comment(s): Watchman filter (for blood clots, ) Fistula (LUE), cataract removal Past Psychological History: Depression Smoking Status: Former smoker Past Alcohol Use History: None Reported Past Drug Use History: None Reported Medications and Allergies Home Medications Medication Instructions Recorded Confirmed Type Acetaminophen/Diphenhydramine 1 tab PO HS 01/01/18 01/01/18 History [Tylenol PM 500-25mg] Allopurinol [Zyloprim] 100 mg PO DAILY 01/01/18 01/01/18 History Aspirin EC [Ecotrin Low Dose] 81 mg PO DAILY 01/01/18 01/01/18 History Calcium Acetate [Phoslo] 667 mg PO ACHS 01/01/18 01/01/18 History Cinacalcet HCl [Sensipar] 30 mg PO SUMOWETH 01/01/18 01/01/18 History Clopidogrel [Plavix] 75 mg PO DAILY 01/01/18 01/01/18 History Docusate [Colace] 100 mg PO BID PRN 01/01/18 01/01/18 History Doxylamine Succinate [Unisom] 50 mg PO HS PRN 01/01/18 01/01/18 History Ethyl Chloride [place] 1 spray TOPICAL TUTHSA 01/01/18 01/01/18 History FLUoxetine HCL [PROzac] 40 mg PO DAILY 01/01/18 01/01/18 History Fluticasone Nasal [place] [Flonase 2 spr EA NOSTRIL DAILY 01/01/18 01/01/18 History Nasal [place]] Furosemide [Lasix] 60 mg PO BID 01/01/18 01/01/18 History Gabapentin [Neurontin] 200 mg PO BID 01/01/18 01/01/18 History Lisinopril [Zestril] 10 mg PO SUMOWEFR 01/01/18 01/01/18 History Loratadine [Claritin] 10 mg PO DAILY 01/01/18 01/01/18 History Midodrine [ProAmatine] 10 mg PO DIRECTED 01/01/18 01/01/18 History Multivits,Th W-Ca,Fe,Oth Min 1 tab PO DAILY 01/01/18 01/01/18 History [Therapeutic M] Mupirocin 2% Oint [Bactroban 2% 1 applic TOPICAL BID 01/01/18 01/01/18 History Oint] Omeprazole [PriLOSEC] 40 mg PO DAILY 01/01/18 01/01/18 History Simvastatin [Zocor] 20 mg PO HS 01/01/18 01/01/18 History Zolpidem Tartrate [Ambien] 10 mg PO HS PRN 01/01/18 01/01/18 History amLODIPine [Norvasc] 10 mg PO DAILY 01/01/18 01/01/18 History traMADol HCL [Ultram] 50 mg PO Q6HR 01/01/18 01/01/18 History Allergies Allergy/AdvReac Type Severity Reaction Status Date / Time No Known Allergies Allergy Verified 01/01/18 10:55 Physical Exam Vitals: Vital Signs Temp Pulse Resp BP Pulse Ox 01/01/18 13:19 95.3 F L 96 20 100/42 100 01/01/18 13:06 95 F L 87 20 104/44 100 01/01/18 12:30 93 18 108/62 100 01/01/18 12:00 95 F L 87 20 120/60 100 01/01/18 11:28 85 20 109/59 100 01/01/18 11:05 75/50 100 01/01/18 10:53 86 20 85/50 100 01/01/18 10:23 79 20 105/59 100 01/01/18 09:58 105 H 16 147/56 96 01/01/18 09:57 95.5 F L 0 L 0 L 88 L Intake and Output 12/31/17 01/01/18 01/01/18 22:59 06:59 14:59 Output Total 50 Balance -50 Output: Urine 50 Uretheral (Duran) 50 Other: Weight 90.3 kg Gen. appearance the patient is currently unresponsive, comatose, calm and comfortable on mechanical ventilator. Orogastric and orotracheal tube are both in place. No signs of any head trauma. He was wearing a neck collar which was removed and based on the negative CAT scan of the cervical spine results. Head exam was generally normal. There was no scleral icterus or corneal arcus. Mucous membranes were moist. Neck was supple and without jugular venous distension, thyromegaly, or carotid bruits. Carotids were easily palpable bilaterally. There was no adenopathy. Lungs were clear to auscultation and percussion, and with normal diaphragmatic excursion. No wheezes or rales were noted. Heart sounds are irregular S1-S2 and there is no significant murmurs appreciated. Sternum stable clean and intact. Abdominal exam revealed normal bowel sounds. The abdomen was soft, non-tender, and without masses, organomegaly, or appreciable enlargement of the abdominal aorta. The patient has evidence of fluid wave and shifting dullness consistent with an ascites. No direct tenderness or rebound tensile guarding. Extremities revealed diminished pulses bilaterally and there is no cyanosis or clubbing at this point. The patient has a left upper extremity AV fistula. Examination of the skin revealed no evidence of significant rashes, suspicious appearing nevi or other concerning lesions. Neurologically, the patient's pupils around 2-3 mm in size and there are symmetrical and sluggishly reactive to light. The gaze is upwards to the left. No nystagmus no facial asymmetry. He has a positive cough and a gag reflex. Does not withdraw to any of the painful stimulation both in upper and lower extremities. Cannot elicit any Babinski. No clonus. Reflexes are +1 and they' re symmetrical all 4 extremities. Results - Laboratory Findings CBC and BMP: 01/01/18 10:44 01/01/18 10:44 ABG ABG pH 7.30 (7.35-7.45) L 01/01/18 10:52 ABG pCO2 34 mmHg (35-45) L 01/01/18 10:52 ABG pO2 >400 mmHg (83-108) H 01/01/18 10:52 ABG O2 Saturation 97.9 % (94-97) H 01/01/18 10:52 PT/INR, D-dimer PT 11.3 sec (9.0-12.0) 01/01/18 10:44 INR 1.2 (<1.2) H 01/01/18 10:44 Abnormal lab findings: Abnormal Labs 01/01/18 01/01/18 01/01/18 10:44 10:44 10:44 RBC 3.36 L Hgb 9.9 L Hct 31.7 L INR 1.2 H ABG pH ABG pCO2 ABG pO2 ABG HCO3 ABG Total CO2 ABG O2 Saturation Potassium 5.6 H Carbon Dioxide 15 L BUN 98 H* Creatinine 7.90 H* Glucose 116 H POC Glucose (mg/dL) Plasma Lactic Acid Ruben Phosphorus 8.2 H* AST 61 H ALT 19 L Alkaline Phosphatase 132 H Troponin I Total Protein 5.7 L Albumin 2.9 L Urine Protein Ur Leukocyte Esterase Urine WBC Urine Sperm 01/01/18 01/01/18 01/01/18 10:44 10:44 10:51 RBC Hgb Hct INR ABG pH ABG pCO2 ABG pO2 ABG HCO3 ABG Total CO2 ABG O2 Saturation Potassium Carbon Dioxide BUN Creatinine Glucose POC Glucose (mg/dL) 114 H Plasma Lactic Acid Ruben 9.1 H* Phosphorus AST ALT Alkaline Phosphatase Troponin I 0.035 H* Total Protein Albumin Urine Protein Ur Leukocyte Esterase Urine WBC Urine Sperm 01/01/18 01/01/18 10:52 11:00 RBC Hgb Hct INR ABG pH 7.30 L ABG pCO2 34 L ABG pO2 >400 H ABG HCO3 17 L ABG Total CO2 18 L ABG O2 Saturation 97.9 H Potassium Carbon Dioxide BUN Creatinine Glucose POC Glucose (mg/dL) Plasma Lactic Acid Ruben Phosphorus AST ALT Alkaline Phosphatase Troponin I Total Protein Albumin Urine Protein 2+ H Ur Leukocyte Esterase Small H Urine WBC 33 H Urine Sperm Many H - Diagnostic Findings Chest x-ray: image reviewed Assessment and Plan Plan: Assessment 1 acute cardiac pulmonary arrest. The patient was in asystole initially and following that he went into a PEA and the down time in between the time that the patient's parents home and emergency department was probably in the order of 20+ minutes. The patient had regained circulation and blood pressure following resuscitation here in the emergency department. Currently is on 8 g of norepinephrine infusion for blood pressure control. Potassium level is at 5.6 and the patient's cardiac rhythm is a fibrillation with a controlled rate. Monitor the patient is intubated on a mechanical ventilator and is unresponsive in a comatose condition while on no sedation. Suspect an underlying component of hypoxic encephalopathy. 2 acute respiratory failure secondary to cardiac pulmonary arrest and the patient is currently intubated on a mechanical ventilator. 3 small bilateral pleural effusions. 4 End stage renal disease on hemodialysis through an AV fistula in the left upper extremity 5 diffuse anasarca with large ascites and features of cirrhotic lever based on a CAT scan of the abdomen 6 2.3 cm soft brown tissue lesion in the posterior left pararenal space, etiology is not clear 7 history of hypertension 8 history of congestion heart failure diastolic dysfunction 9 chronic atrial fibrillation and the patient has a watchman's procedure and currently on no anticoagulation 10 gait dysfunction and history of recurrent falls 11 diabetes mellitus with possibly component of diabetic neuropathy 12 hyperlipidemia 13 hyperuricemia/gout. 14 lactic acidosis secondary to cardiac pulmonary arrest. Plan Continue vent support. The patient is currently on assist control mode of ventilation at the rate of 14 with an FiO2 of 50% and a PEEP of 5 with tidal volume of 500. He is actually taking well. He has developed lactic acidosis which is probably a manifestation of his prolonged cardiac arrest. The patient is currently being given IV fluids with normal saline at the rate of 20 mL an hour. He is on pressors with 8 g of norepinephrine infusion. We'll increase his IV fluids up to 75 mL an hour. We will monitor the potassium level. The patient was given calcium gluconate and bicarbonate at the time of his resuscitation. We'll repeat the potassium level and echo accordingly. The patient was given a dose of cefepime and vancomycin emergency department. Pancultures will be sent. Repeat CAT scan will next 24 hours. EEG. Echocardiogram. Neurology consultation. Cardiology consultation. Nephrology consultation. Blood sugar monitoring. Keep nothing by mouth for now. No sedation and monitor neuro status. Unfortunately the patient seems to be quite comatose at this point in time and he is unresponsive. Suspect a component of hypoxic/anoxic encephalopathy. We'll move the patient to the ICU and will make further recommendations based on his progress. Medication were reviewed and necessary adjustment will also be done. Remove the bear hugger for now and allow lower temperatures at this point in time.
[2018-01-01] MEDS ORDERED: NON-FORMULARY DRUG (Omeprazole 40 MG) PO SCH (14:15)
--- NOTE | 2018-01-01 14:16 | P.HPIM ---
History of Present Illness H&P Date: 01/01/18 Chief Complaint: Cardiac arrest after syncope This is a pleasant 72-year-old gentleman patient of Dr. Hope new to the office , Dr. Clarke, Dr. 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 Patient was walking up the steps with his walker, per patient got entangled with his walker, and fell down half way to this 16 step stairs, patient was noted to go in and out of consciousness, was found to be cold and clammy, and diaphoretic. Patient was assisted by the till the bottom of the stairs until she called 911, EMS found him with with asystole cardiac arrest and CPR was performed in the field for approximately 10 minutes prior to his transfer to the [facility], he received epinephrine and atropine, did not require cardioversion, currently now in the emergency room, nonresponsive to a full stimuli, mechanically vented anticipating his admission to ICU unless other circumstances prevents this admission here. I was notified by Dr. Martinez that the patient was in the emergency room, I discuss it with ER physician Dr. Gutiérrez, imaging studies are still pending, patient might be transferred to another facility should there be any intracranial hemorrhage noted. Awaiting final imaging and laboratory studies, prior to ICU transfer. Patient currently is in the emergency room when evaluated, intubated mechanically, As per the , patient is on Plavix and aspirin, and last dose of Plavix was 12/31/2017 for the watchman procedure, he was on Coumadin 45 days then maintained on Plavix aspirin for 4 months as per protocol for the watchman procedure. He was last admitted at [facility] for aspiration pneumonia October 2017, was last seen by Dr. Carolina 11/07/2017, no medication changes were made, last A1c was 6.0. He also had an EGD by Dr. Bonner, approximately 2 weeks ago secondary to liver cirrhosis, no liver biopsy performed, patient has ascites. In the emergency room, CT of the brain shows no evidence of acute intracranial hemorrhage or acute ischemic change or mass effect mild ventriculomegaly noted secondary to central cerebral atrophy, CT of the chest abdomen pelvis, showed diffuse anasarca, borderline cardiomegaly without pericardial effusion, 2.5 cm mixed density along the expected course of the proximal circumflex, ascending aorta 3.5 cm without dissection, small left trace right pleural effusion, atelectasis, also by granulomas, scattered nonenlarged mediastinal lymph nodes, adrenals and spleen and crisscrossed normal, hydropic gallbladder 4.7 cm, nodular liver, no focal liver lesion, 2.3 nodule left pararenal space bilateral kidneys are atrophic, exophytic 1.4 cm lesion lateral left kidney too small to characterize, possible cyst increased density expanding the left iliac 4 cm possibly intermuscular hemorrhage or underlying mass, soft tissue sandra laboratory data along the right paramedian anterior peritoneal lining could flex small area of focal hemorrhage in the per 20or soft tissue deposit from metastatic disease, indeterminate 2.3 cm round soft tissue lesion posterior left pararenal space cannot exclude neoplastic keep urology, short-term interval follow-up recommended, 2.5 cm partially calcified lesion proximal circumflex artery suspicious for coronary artery aneurysm. Symptoms prior to admission included diarrhea for 1 week duration, however he also saw Dr. Bonner for chronic diarrhea 3 years celiac panel was requested along with hepatitis C AFP serum plasmin level SANG. denies fever no chills no abdominal pain, patient is maintained on hemodialysis Saturdays, but he completed Augmentin for the aspiration pneumonia that was initially prescribed 11/01/2017, and prior to that he received clindamycin for 5 days Review of Systems ROS unobtainable: due to endotracheal tube, due to mental status Constitutional: Reports as per HPI Ears, nose, mouth and throat: Reports as per HPI Cardiovascular: Reports as per HPI Respiratory: Reports as per HPI Past Medical History Past Medical History: Cancer, Heart Failure, CVA/TIA, Diabetes Mellitus, Hyperlipidemia, Hypertension, Pulmonary Embolus (PE), Sleep Apnea/CPAP/BIPAP Additional Past Medical History / Comment(s): ESRD (dialysis Fri, , Friday.) Sarcoma (behind LT kidney per friend) History of Any Multi-Drug Resistant Organisms: None Reported Past Surgical History: Unable to Obtain Additional Past Surgical History / Comment(s): Watchman filter (for blood clots, ) Fistula (LUE), cataract removal Past Psychological History: Depression Smoking Status: Former smoker Past Alcohol Use History: None Reported Past Drug Use History: None Reported - Past Family History Father History Unknown: Yes Additional Family Medical History / Comment(s): PT WAS ADOPTED Mother History Unknown: Yes Additional Family Medical History / Comment(s): PT WAS ADOPTED Medications and Allergies Home Medications Medication Instructions Recorded Confirmed Type Acetaminophen/Diphenhydramine 1 tab PO HS 01/01/18 01/01/18 History [Tylenol PM 500-25mg] Allopurinol [Zyloprim] 100 mg PO DAILY 01/01/18 01/01/18 History Aspirin EC [Ecotrin Low Dose] 81 mg PO DAILY 01/01/18 01/01/18 History Calcium Acetate [Phoslo] 667 mg PO ACHS 01/01/18 01/01/18 History Docusate [Colace] 100 mg PO BID PRN 01/01/18 01/01/18 History Ethyl Chloride [place] 1 spray TOPICAL TUTHSA 01/01/18 01/01/18 History FLUoxetine HCL [PROzac] 40 mg PO DAILY 01/01/18 01/01/18 History Fluticasone Nasal [place] [Flonase 2 spr EA NOSTRIL DAILY 01/01/18 01/01/18 History Nasal [place]] Furosemide [Lasix] 60 mg PO BID 01/01/18 01/01/18 History Gabapentin [Neurontin] 100 mg PO DAILY 01/01/18 01/01/18 History Gabapentin [Neurontin] 200 mg PO HS 01/01/18 01/01/18 History Lisinopril [Zestril] 10 mg PO SUMOWEFR 01/01/18 01/01/18 History Loratadine [Claritin] 10 mg PO DAILY 01/01/18 01/01/18 History Midodrine [ProAmatine] 10 mg PO DIRECTED 01/01/18 01/01/18 History Multivits,Th W-Ca,Fe,Oth Min 1 tab PO DAILY 01/01/18 01/01/18 History [Therapeutic M] Mupirocin 2% Oint [Bactroban 2% 1 applic TOPICAL BID 01/01/18 01/01/18 History Oint] Omeprazole [PriLOSEC] 40 mg PO DAILY 01/01/18 01/01/18 History Simvastatin [Zocor] 20 mg PO HS 01/01/18 01/01/18 History amLODIPine [Norvasc] 10 mg PO DAILY 01/01/18 01/01/18 History traMADol HCL [Ultram] 50 mg PO Q6HR 01/01/18 01/01/18 History Allergies Allergy/AdvReac Type Severity Reaction Status Date / Time No Known Allergies Allergy Verified 01/01/18 10:55 Physical Exam Vitals: Vital Signs Temp Pulse Resp BP Pulse Ox 01/01/18 13:06 95 F L 87 20 104/44 100 01/01/18 12:30 93 18 108/62 100 01/01/18 12:00 95 F L 87 20 120/60 100 01/01/18 11:28 85 20 109/59 100 01/01/18 11:05 75/50 100 01/01/18 10:53 86 20 85/50 100 01/01/18 10:23 79 20 105/59 100 01/01/18 09:58 105 H 16 147/56 96 01/01/18 09:57 95.5 F L 0 L 0 L 88 L Intake and Output 12/31/17 01/01/18 01/01/18 22:59 06:59 14:59 Output Total 50 Balance -50 Output: Urine 50 Uretheral (Duran) 50 Other: Weight 90.3 kg - Constitutional General appearance: obese - EENT Eyes: anicteric sclerae (pinpoint pupils) ENT: NA/AT (patient intubated when seen) - Respiratory Respiratory: bilateral: CTA, diminished, negative: wheezing, prolonged expiration, prolonged inspiration - Cardiovascular Rhythm: irregularly irregular Abnormal Heart Sounds: systolic murmur - Gastrointestinal General gastrointestinal: normal bowel sounds, soft - Integumentary Integumentary: normal - Neurologic unresponsive to painful stimuli Results CBC & Chem 7: 01/02/18 04:35 01/02/18 04:35 Labs: Abnormal Lab Results - Last 24 Hours (Table) 01/01/18 01/01/18 01/01/18 Range/Units 10:44 10:44 10:44 RBC 3.36 L (4.30-5.90) m/uL Hgb 9.9 L (13.0-17.5) gm/dL Hct 31.7 L (39.0-53.0) % INR 1.2 H (<1.2) ABG pH (7.35-7.45) ABG pCO2 (35-45) mmHg ABG pO2 (83-108) mmHg ABG HCO3 (21-25) mmol/L ABG Total CO2 (19-24) mmol/L ABG O2 Saturation (94-97) % Potassium 5.6 H (3.5-5.1) mmol/L Carbon Dioxide 15 L (22-30) mmol/L BUN 98 H* (9-20) mg/dL Creatinine 7.90 H* (0.66-1.25) mg/dL Glucose 116 H (74-99) mg/dL POC Glucose (mg/dL) (75-99) mg/dL Plasma Lactic Acid Ruben (0.7-2.0) mmol/L Phosphorus 8.2 H* (2.5-4.5) mg/dL AST 61 H (17-59) U/L ALT 19 L (21-72) U/L Alkaline Phosphatase 132 H (38-126) U/L Troponin I (0.000-0.034) ng/mL Total Protein 5.7 L (6.3-8.2) g/dL Albumin 2.9 L (3.5-5.0) g/dL Urine Protein (Negative) Ur Leukocyte Esterase (Negative) Urine WBC (0-5) /hpf Urine Sperm (None) /hpf 01/01/18 01/01/18 01/01/18 Range/Units 10:44 10:44 10:51 RBC (4.30-5.90) m/uL Hgb (13.0-17.5) gm/dL Hct (39.0-53.0) % INR (<1.2) ABG pH (7.35-7.45) ABG pCO2 (35-45) mmHg ABG pO2 (83-108) mmHg ABG HCO3 (21-25) mmol/L ABG Total CO2 (19-24) mmol/L ABG O2 Saturation (94-97) % Potassium (3.5-5.1) mmol/L Carbon Dioxide (22-30) mmol/L BUN (9-20) mg/dL Creatinine (0.66-1.25) mg/dL Glucose (74-99) mg/dL POC Glucose (mg/dL) 114 H (75-99) mg/dL Plasma Lactic Acid Ruben 9.1 H* (0.7-2.0) mmol/L Phosphorus (2.5-4.5) mg/dL AST (17-59) U/L ALT (21-72) U/L Alkaline Phosphatase (38-126) U/L Troponin I 0.035 H* (0.000-0.034) ng/mL Total Protein (6.3-8.2) g/dL Albumin (3.5-5.0) g/dL Urine Protein (Negative) Ur Leukocyte Esterase (Negative) Urine WBC (0-5) /hpf Urine Sperm (None) /hpf 01/01/18 01/01/18 Range/Units 10:52 11:00 RBC (4.30-5.90) m/uL Hgb (13.0-17.5) gm/dL Hct (39.0-53.0) % INR (<1.2) ABG pH 7.30 L (7.35-7.45) ABG pCO2 34 L (35-45) mmHg ABG pO2 >400 H (83-108) mmHg ABG HCO3 17 L (21-25) mmol/L ABG Total CO2 18 L (19-24) mmol/L ABG O2 Saturation 97.9 H (94-97) % Potassium (3.5-5.1) mmol/L Carbon Dioxide (22-30) mmol/L BUN (9-20) mg/dL Creatinine (0.66-1.25) mg/dL Glucose (74-99) mg/dL POC Glucose (mg/dL) (75-99) mg/dL Plasma Lactic Acid Ruben (0.7-2.0) mmol/L Phosphorus (2.5-4.5) mg/dL AST (17-59) U/L ALT (21-72) U/L Alkaline Phosphatase (38-126) U/L Troponin I (0.000-0.034) ng/mL Total Protein (6.3-8.2) g/dL Albumin (3.5-5.0) g/dL Urine Protein 2+ H (Negative) Ur Leukocyte Esterase Small H (Negative) Urine WBC 33 H (0-5) /hpf Urine Sperm Many H (None) /hpf Assessment and Plan Plan: 1. Syncope with Cardiac arrest, malignant arrhythmias need to be ruled out, known history of atrial fibrillation, status post watchman procedure, patient cannot be anticoagulated secondary to epistaxis, patient currently is mechanically and related secondary to acute respiratory failure Dr. Martinez and Dr. Lechuga consulted, other causes of the cardiac arrest could be pulmonary emboli rather than acute neurologic events such as seizure or CVA. Patient will be closely monitored including a follow-up CAT scan next 24-48 hours, EEG of the brain, echocardiogram, and also will be evaluated for obstructive coronary artery disease,. Cardiac biomarkers to be serially done, urine drug screen 2. Transient hypotension secondary to cardiovascular collapse, pressor agents has been provided sepsis cannot be ruled out, acute UTI with suspected hospital- acquired pneumonia and left infiltrate, along with adrenal sufficiency, cortisol to be obtained, might need hydrocortisone if blood pressure remains low 3. 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 Dukes 4. Acute hypoxemic respiratory failure secondary to cardiac arrest and suspected hospital-acquired pneumonia, patient currently is mechanically ventilated Dr. Lechuga following closely 5. Atrial fibrillation, chronic status post watchman procedure for occlusion of left atrial appendage July 2017, not requiring any long-term anticoagulation, on aspirin. Plavix should have been completed as of 2017 cardiology following 5. Liver cirrhosis, ascites this was recently investigated by Dr. Bonner at [facility] November 2017 with elevated alkaline phosphatase level, elevated serial plasmin level, elevated alpha-1 antitrypsin, and elevated ferritin levels at 2200, other test that was negative include SANG, hepatitis panel was negative, for both B, and C. No liver biopsy performed 5. Acute on Chronic diarrhea with negative celiac reflex panel, was seen by Dr. Gallardo recently, however with recent antibiotic exposure Augmentin and clindamycin 6 weeks prior to admission, C. diff toxin would be evaluated 6. Left lower lobe infiltrate, hospital-acquired pneumonia along with aspiration pneumonia is suspected, history of aspiration pneumonia last October 2017, with his hospitalization, we are going to initiate Zosyn and vancomycin we will try to obtain cultures 7. Diabetes mellitus with last hemoglobin A1c of 5.3, history of hypoglycemia, with his current syncopal events, hypoglycemic events and complications the to be monitored 8. Head concussion with falling from the stairs, CAT scan of the brain failed to reveal any acute bleed or ischemic infarcts, cervical CT failed to reveal any fractures patient is on aspirin for anticoagulation, recently completed Plavix as of 12/31/2017, patient would repeat a CAT scan in the brain next 24 hours 9. Generalized anasarca. Once stabilized, IV diuretics 10 Moderate protein calorie mollification with mild to moderate protein deficiency, nutritional requirements will be reevaluated next 24 hours 11 Mild troponin elevation possibly related to cardiac arrest, however secondary ischemic event cannot be ruled out cardiology following, no immediate need for cardiac cath was anticipated by cardiology, continue for close surveillance 12Acute urinary tract infection, so seen to be initiated urine cultures and blood cultures have been sent as hospital-acquired pneumonia is suspected 13DVT prophylaxis, RALPH montes, patient's high risk with known history of liposarcoma, as well as debility, however with recent head concussion going to delay with chemical anticoagulation till after the second CAT scan will be done 14. GI prophylaxis Prognosis guarded CODE STATUS full
[2018-01-01] MEDS: SODIUM CHLORIDE 0.9% 1,000 ML IV SCH (14:29)
[2018-01-01 14:51] LABS: Amphetamine Screen,Urine Not Detected (NotDetected); Barbiturate Screen,Urine Not Detected (NotDetected); Benzodiazepines Screen,Urine Not Detected (NotDetected); Cocaine Screen,Urine Not Detected (NotDetected); Methadone Screen, Urine Not Detected (NotDetected); Opiate Screen,Urine Not Detected (NotDetected); Oxycodone Screen, Urine Not Detected (NotDetected); Phencyclidine Screen,Urine Not Detected (NotDetected); Tricyclic Antidepressant,Urine Not Detected (NotDetected); Urn Cannabinoid Scrn Not Detected (NotDetected)
[2018-01-01 15:46] LABS: Glucose,Whole Blood 174 mg/dL (75-99)
[2018-01-01] MEDS: IPRATROPIUM-ALBUTEROL 3 ML NEB INHALATION SCH ×2 (15:52→19:34)
[2018-01-01] MEDS: CALCIUM ACETATE 667 MG CAP PO SCH ×2 (16:11→20:28)
[2018-01-01] MEDS ORDERED: NOREPINEPHRINE 16 MG in DEXTROSE 5% IN WATER 250 ML IV SCH ×2 (16:15)
[2018-01-01] MEDS: INSULIN ASPART 100 UNIT/ML 1 ML 10 ML VIAL SQ SCH ×3 (16:34→23:41)
[2018-01-01] MEDS: HEPARIN SODIUM,PORCINE 5,000 UNIT/ML 1 ML VIAL SQ SCH (16:45)
[2018-01-01] MEDS: CLOPIDOGREL 75 MG TAB PO SCH (17:50)
[2018-01-01 17:54] LABS: Glucose,Whole Blood 166 mg/dL (75-99)
[2018-01-01] MEDS: PANTOPRAZOLE 40 MG/10 ML VIAL IVP SCH (17:55)
[2018-01-01] MEDS: ASPIRIN 81 MG PO SCH (17:55)
[2018-01-01] MEDS: MIDODRINE 5 MG TAB PO SCH (17:57)
[2018-01-01 18:17] LABS: Calcium 8.5 mg/dL (8.4-10.2); Potassium 5.3 mmol/L (3.5-5.1)
[2018-01-01] MEDS: GABAPENTIN 100 MG CAP PO SCH (20:28)
[2018-01-01] MEDS ORDERED: Magnesium Replacement Protocol 1 EACH MISC MISCELLANE PRN (22:39)
[2018-01-01] MEDS: MAGNESIUM SULFATE-D5W PMX 1 GM in DEXTROSE/WATER 1 100ML.BAG IVPB SCH (22:54)
[2018-01-01 23:36] LABS: Glucose,Whole Blood 109 mg/dL (75-99)
[2018-01-01] MEDS: CHLORHEXIDINE GLUCONATE 15 ML CUP MUCOUS MEM SCH (23:40)
[2018-01-01] MEDS: PIPERACILLIN-TAZOBACTAM 3.375 GM in DEXTROSE/WATER 1 50ML.BAG IVPB SCH (23:40)
[2018-01-02] MEDS ORDERED: SODIUM CHLORIDE 0.9% IVPB ONE ×2
[2018-01-02] MEDS ORDERED: VALPROATE SODIUM IVPB ONE ×2
[2018-01-02] MEDS: MAGNESIUM SULFATE-D5W PMX 1 GM in DEXTROSE/WATER 1 100ML.BAG IVPB SCH ×2 (00:40→02:00)
[2018-01-02] MEDS: HEPARIN SODIUM,PORCINE 5,000 UNIT/ML 1 ML VIAL SQ SCH ×3 (00:41→17:42)
[2018-01-02] MEDS: SODIUM CHLORIDE 0.9% 1,000 ML IV SCH ×2 (03:39→17:41)
[2018-01-02 04:42] LABS: ABG Base Excess -5.2 mmol/L; ABG HCO3 19 mmol/L (21-25); ABG Oxygen Saturation 99.8 % (94-97); ABG PCO2 28 mmHg (35-45); ABG PH 7.44 (7.35-7.45); ABG PO2 185 mmHg (83-108); ABG TCO2 20 mmol/L (19-24)
[2018-01-02 04:43] LABS: Basophils % (A) 0 %; Eosinophils % (A) 0 %; HCT 29.3 % (39.0-53.0); Lymphocytes # (A) 0.3 k/uL (1.0-4.8); Lymphocytes % (A) 2 %; MCH 27.4 pg (25.0-35.0); MCHC 30.6 g/dL (31.0-37.0); MCV 89.6 fL (80.0-100.0); Mean Platelet Volume 8.9; Monocytes # (A) 0.4 k/uL (0-1.0); Monocytes % (A) 3 %; Neutrophils # (A) 14.8 k/uL (1.3-7.7); Neutrophils % (A) 95 %; Platelet Count 345 k/uL (150-450); RBC 3.27 m/uL (4.30-5.90); WBC 15.6 k/uL (3.8-10.6)
[2018-01-02 05:03] LABS: Calcium 8.5 mg/dL (8.4-10.2); Magnesium 2.3 mg/dL (1.6-2.3); Phosphorus 5.1 mg/dL (2.5-4.5); Potassium 4.8 mmol/L (3.5-5.1)
[2018-01-02 06:28] LABS: Glucose,Whole Blood 120 mg/dL (75-99)
[2018-01-02] MEDS: INSULIN ASPART 100 UNIT/ML 1 ML 10 ML VIAL SQ SCH ×3 (06:31→18:25)
[2018-01-02] MEDS: ARTIFICIAL TEARS-HYPROMELLOSE DROPS 15 ML BTL BOTH EYES PRN (06:39)
[2018-01-02] MEDS: IPRATROPIUM-ALBUTEROL 3 ML NEB INHALATION SCH ×4 (07:25→19:54)
--- NOTE | 2018-01-02 08:02 | P.PN ---
Subjective Progress Note Date: 01/02/18 72-year-old male patient, known history of end-stage renal disease on hemodialysis through a AV fistula in the left upper extremity, in addition to history of chronic atrial fibrillation and the patient has undergone a watchman' s procedure, congestion heart failure/diastolic dysfunction and hyperlipidemia, presented to the emergency department with a cardiac arrest. The patient was at home with his significant other. He was using a walker and he was trying to go down the steps. He called his significant other and he told her that he was not feeling well. Following that the significant other heard a noise and apparently the patient got colds at the edge of the carpet while utilizing the walker and he fell on the steps and he was found to be on the top 3 steps on his home staircase. He was still conscious. The significant other came in for help however she was unable to move the patient. By that time she decided to call EMS. Sometime between the phone call and EMS arrival the patient lost consciousness. The exact duration of the loss of consciousness and cardiac pulmonary arrest is not known. At the time of arrival, the patient was found to be in asystole. CPR was initiated and the patient was given a dose of epinephrine. The patient was then brought into the emergency department and upon arrival he was still receiving CPR. He arrived to the ED and another 14 minutes of resuscitation was done during which the patient received 3 additional dose of epinephrine for a PEA rhythm. The patient was intubated. After 40 minutes of resuscitation the patient had return of circulation and blood pressure was obtained. Immediately triple-lumen catheter was inserted and the patient was started on pressors and currently the patient on 8 mics of norepinephrine infusion. The patient is in atrial fibrillation rhythm. CAT scan of the brain was done and a CAT scan of the C-spine showed no abnormalities. No evidence of any intracranial hemorrhage or any acute ischemic changes or mass effect or any fluid collection. The patient also had a CAT scan of the chest abdomen and pelvis which showed diffuse anasarca and ascites in addition to a cirrhotic morphology of the liver. There was also a hydropic gallbladder. Soft tissue nodularity along the right paramedial anterior peritoneal lining that raised the suspicion for any focal hemorrhage in the peritoneal space. There was also concern for a 4 cm intramuscular hemorrhage or an underlying mass in the left iliac area/muscle. Another indeterminate 2.3 cm round soft tissue lesion in the posterior left pararenal space of an unknown significance. I evaluated this patient in the emergency department. The patient was completely unresponsive. He was comatose. He was not withdrawing to painful stimulation. He was in a mechanical ventilator on assist control mode of ventilation. The patient had a Duran catheter with minimal amount of urine output thus far. In general he does not produce significant amount of urine output. The patient had no leukocytosis. Hemoglobin was at 9.9. The patient' s potassium level at time of admission was 5.6. The patient had a BUN of 19 and a creatinine of 7.9. His initial lactic acid level was at 9.1. LFT showed a bilirubin of 0.7 with a AST of 61 and ALT of 19. Post intubation blood gases showed a pH of 7.3 with a pCO2 of 34 and pO2 of more than 400 and this was done and FiO2 of 100%. The BNP level was 50,000+ and the urinalysis showed 33 WBCs. First set of troponin was at 0.035. EKG showed a atrial fibrillation rhythm with a left exudative deviation and right bundle branch block pattern. He was receiving external warming through a bear hugger for a temperature of 95.0F. No seizure activity is noted. On 01/02/2018 the patient is being seen in follow-up in the intensive care unit. 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 He is on no sedation and he remains completely comatose and unresponsive. He does not respond to any painful stimulation throughout his body. Overnight he developed some myoclonic jerks/ myoclonic seizures and for that reason the patient was started on Depakote per neurology's recommendation. EEG is to follow today. A repeat CAT scan of the brain is to follow today. Meanwhile, the patient has a positive corneal reflex , positive gag reflex, positive cough reflex, and possible breathing reflex as he is able to initiate and should've his own breasts. He does have an upward gaze looking to the left and he has a conjugate gaze without any nystagmus. He does occasionally blinking of the eyes. The patient is currently normothermic. The ventilator is still in the same setting which includes an assist-control of 12 with a tidal volume of 500 with an FiO2 of 50% and a PEEP of 5. The patient has a pH of 7.44 with a pCO2 of 28 and pO2 185. Chest x-ray shows some limited infiltration of the left lung base otherwise ET tube is in a good location. The patient on empiric antibiotic coverage with IV Zosyn. The patient underwent hemodialysis yesterday without ultrafiltration. His electrolytes show no significant abnormalities. Potassium level is down to 4.8. Creatinine is down to 5.7. Sodium level is at 138. Phosphorus level is at 5.1. The patient is currently off pressors and hemodynamically stable. His receiving normal saline at rate of 75 mL an hour. The patient also started developing some liquidy bowel movements/diarrhea and currently has an FMS system attached and the total amount of stool collected was 200 mL over the past shift. Objective - Vital Signs Vital signs: Vital Signs Temp 98.1 F 01/02/18 00:00 Pulse 81 01/02/18 07:41 Resp 16 01/02/18 07:00 BP 122/52 01/02/18 07:00 Pulse Ox 100 01/02/18 07:00 Intake & Output 01/01/18 01/02/18 01/02/18 18:59 06:59 18:59 Intake Total 420 1453.679 75 Output Total 100 21 0 Balance 320 1432.679 75 Weight 90.3 kg 92 kg Intake: IV 300 1300 75 Magnesium Sulfate-D5w Pmx 300 1 gm In Dextrose/Water 1 100ml.bag @ 100 mls/hr IVPB Q1H [facility] Rx#: [id number] Piperacillin-Tazobactam 3 50 .375 gm In Dextrose/Water 1 50ml.bag @ 12.5 mls/hr IVPB Q12HR [facility] Rx#: [id number] Sodium Chloride 0.9% 1, 300 900 75 000 ml @ 75 mls/hr IV . [id number] [facility] Rx#:[id number] Valproate Sodium 500 mg 50 In Sodium Chloride 0.9% 50 ml @ 50 mls/hr IVPB Q8HR [facility] Rx#:[id number] Intake, IV Titration 120 73.679 Amount Norepinephrin 4 mg-0.9% 120 Ns Pmx 4 mg In 250 ml @ Per Protocol IV .Q0M [facility] Rx#:[id number] Norepinephrine 16 mg In 73.679 Dextrose 5% in Water 250 ml @ Titrate IV .Q0M [facility] Rx#:[id number] Oral 80 Output: Urine 100 21 0 Uretheral (Duran) 100 Other: Voiding Method Indwelling Catheter Indwelling Catheter ABP, PAP, CO, CI - Last Documented Arterial Blood Pressure 150/41 - Exam Gen. appearance the patient is currently unresponsive, comatose, calm and comfortable on mechanical ventilator. Orogastric and orotracheal tube are both in place. No signs of any head trauma. He was wearing a neck collar which was removed and based on the negative CAT scan of the cervical spine results. Head exam was generally normal. There was no scleral icterus or corneal arcus. Mucous membranes were moist. Neck was supple and without jugular venous distension, thyromegaly, or carotid bruits. Carotids were easily palpable bilaterally. There was no adenopathy. Lungs were clear to auscultation and percussion, and with normal diaphragmatic excursion. No wheezes or rales were noted. Heart sounds are irregular S1-S2 and there is no significant murmurs appreciated. Sternum stable clean and intact. Abdominal exam revealed normal bowel sounds. The abdomen was soft, non-tender, and without masses, organomegaly, or appreciable enlargement of the abdominal aorta. The patient has evidence of fluid wave and shifting dullness consistent with an ascites. No direct tenderness or rebound tensile guarding. Extremities revealed diminished pulses bilaterally and there is no cyanosis or clubbing at this point. The patient has a left upper extremity AV fistula. Examination of the skin revealed no evidence of significant rashes, suspicious appearing nevi or other concerning lesions. Neurologically, the patient was developing occasional myoclonic jerks that improved with utilization of Depakote. He remains completely comatose. Unresponsive to any painful stimulation. the patient's pupils around 2-3 mm in size and there are symmetrical and sluggishly reactive to light. The gaze is upwards to the left. No nystagmus no facial asymmetry. He has a positive cough and a gag reflex. Does not withdraw to any of the painful stimulation both in upper and lower extremities. Cannot elicit any Babinski. No clonus. Reflexes are +1 and they're symmetrical all 4 extremities. Noted the patient has been on no sedation over the past 18 hours. - Labs CBC & Chem 7: 01/02/18 04:35 01/02/18 04:35 Labs: Abnormal Lab Results - Last 24 Hours (Table) 01/01/18 01/01/18 01/01/18 Range/Units 10:44 10:44 10:44 WBC (3.8-10.6) k/uL RBC 3.36 L (4.30-5.90) m/uL Hgb 9.9 L (13.0-17.5) gm/dL Hct 31.7 L (39.0-53.0) % MCHC (31.0-37.0) g/dL Neutrophils # (1.3-7.7) k/uL Lymphocytes # (1.0-4.8) k/uL INR 1.2 H (<1.2) ABG pH (7.35-7.45) ABG pCO2 (35-45) mmHg ABG pO2 (83-108) mmHg ABG HCO3 (21-25) mmol/L ABG Total CO2 (19-24) mmol/L ABG O2 Saturation (94-97) % ABG Lactic Acid (0.5-1.6) mmol/L Sodium (137-145) mmol/L Potassium 5.6 H (3.5-5.1) mmol/L Carbon Dioxide 15 L (22-30) mmol/L BUN 98 H* (9-20) mg/dL Creatinine 7.90 H* (0.66-1.25) mg/dL Glucose 116 H (74-99) mg/dL POC Glucose (mg/dL) (75-99) mg/dL Plasma Lactic Acid Ruben (0.7-2.0) mmol/L Phosphorus 8.2 H* (2.5-4.5) mg/dL Magnesium (1.6-2.3) mg/dL AST 61 H (17-59) U/L ALT 19 L (21-72) U/L Alkaline Phosphatase 132 H (38-126) U/L Troponin I (0.000-0.034) ng/mL Total Protein 5.7 L (6.3-8.2) g/dL Albumin 2.9 L (3.5-5.0) g/dL Urine Protein (Negative) Ur Leukocyte Esterase (Negative) Urine WBC (0-5) /hpf Urine Sperm (None) /hpf 01/01/18 01/01/18 01/01/18 Range/Units 10:44 10:44 10:51 WBC (3.8-10.6) k/uL RBC (4.30-5.90) m/uL Hgb (13.0-17.5) gm/dL Hct (39.0-53.0) % MCHC (31.0-37.0) g/dL Neutrophils # (1.3-7.7) k/uL Lymphocytes # (1.0-4.8) k/uL INR (<1.2) ABG pH (7.35-7.45) ABG pCO2 (35-45) mmHg ABG pO2 (83-108) mmHg ABG HCO3 (21-25) mmol/L ABG Total CO2 (19-24) mmol/L ABG O2 Saturation (94-97) % ABG Lactic Acid (0.5-1.6) mmol/L Sodium (137-145) mmol/L Potassium (3.5-5.1) mmol/L Carbon Dioxide (22-30) mmol/L BUN (9-20) mg/dL Creatinine (0.66-1.25) mg/dL Glucose (74-99) mg/dL POC Glucose (mg/dL) 114 H (75-99) mg/dL Plasma Lactic Acid Ruben 9.1 H* (0.7-2.0) mmol/L Phosphorus (2.5-4.5) mg/dL Magnesium (1.6-2.3) mg/dL AST (17-59) U/L ALT (21-72) U/L Alkaline Phosphatase (38-126) U/L Troponin I 0.035 H* (0.000-0.034) ng/mL Total Protein (6.3-8.2) g/dL Albumin (3.5-5.0) g/dL Urine Protein (Negative) Ur Leukocyte Esterase (Negative) Urine WBC (0-5) /hpf Urine Sperm (None) /hpf 01/01/18 01/01/18 01/01/18 Range/Units 10:52 11:00 15:44 WBC (3.8-10.6) k/uL RBC (4.30-5.90) m/uL Hgb (13.0-17.5) gm/dL Hct (39.0-53.0) % MCHC (31.0-37.0) g/dL Neutrophils # (1.3-7.7) k/uL Lymphocytes # (1.0-4.8) k/uL INR (<1.2) ABG pH 7.30 L (7.35-7.45) ABG pCO2 34 L (35-45) mmHg ABG pO2 >400 H (83-108) mmHg ABG HCO3 17 L (21-25) mmol/L ABG Total CO2 18 L (19-24) mmol/L ABG O2 Saturation 97.9 H (94-97) % ABG Lactic Acid (0.5-1.6) mmol/L Sodium (137-145) mmol/L Potassium (3.5-5.1) mmol/L Carbon Dioxide (22-30) mmol/L BUN (9-20) mg/dL Creatinine (0.66-1.25) mg/dL Glucose (74-99) mg/dL POC Glucose (mg/dL) 174 H (75-99) mg/dL Plasma Lactic Acid Ruben (0.7-2.0) mmol/L Phosphorus (2.5-4.5) mg/dL Magnesium (1.6-2.3) mg/dL AST (17-59) U/L ALT (21-72) U/L Alkaline Phosphatase (38-126) U/L Troponin I (0.000-0.034) ng/mL Total Protein (6.3-8.2) g/dL Albumin (3.5-5.0) g/dL Urine Protein 2+ H (Negative) Ur Leukocyte Esterase Small H (Negative) Urine WBC 33 H (0-5) /hpf Urine Sperm Many H (None) /hpf 01/01/18 01/01/18 01/01/18 Range/Units 16:10 16:10 16:10 WBC (3.8-10.6) k/uL RBC (4.30-5.90) m/uL Hgb (13.0-17.5) gm/dL Hct (39.0-53.0) % MCHC (31.0-37.0) g/dL Neutrophils # (1.3-7.7) k/uL Lymphocytes # (1.0-4.8) k/uL INR (<1.2) ABG pH (7.35-7.45) ABG pCO2 (35-45) mmHg ABG pO2 (83-108) mmHg ABG HCO3 (21-25) mmol/L ABG Total CO2 (19-24) mmol/L ABG O2 Saturation (94-97) % ABG Lactic Acid (0.5-1.6) mmol/L Sodium 135 L (137-145) mmol/L Potassium 5.3 H (3.5-5.1) mmol/L Carbon Dioxide 17 L (22-30) mmol/L BUN 101 H* (9-20) mg/dL Creatinine 7.67 H* (0.66-1.25) mg/dL Glucose 195 H (74-99) mg/dL POC Glucose (mg/dL) (75-99) mg/dL Plasma Lactic Acid Ruben 4.4 H* (0.7-2.0) mmol/L Phosphorus (2.5-4.5) mg/dL Magnesium (1.6-2.3) mg/dL AST (17-59) U/L ALT (21-72) U/L Alkaline Phosphatase (38-126) U/L Troponin I 1.300 H* (0.000-0.034) ng/mL Total Protein (6.3-8.2) g/dL Albumin (3.5-5.0) g/dL Urine Protein (Negative) Ur Leukocyte Esterase (Negative) Urine WBC (0-5) /hpf Urine Sperm (None) /hpf 01/01/18 01/01/18 01/01/18 Range/Units 17:53 21:20 23:05 WBC (3.8-10.6) k/uL RBC (4.30-5.90) m/uL Hgb (13.0-17.5) gm/dL Hct (39.0-53.0) % MCHC (31.0-37.0) g/dL Neutrophils # (1.3-7.7) k/uL Lymphocytes # (1.0-4.8) k/uL INR (<1.2) ABG pH (7.35-7.45) ABG pCO2 (35-45) mmHg ABG pO2 (83-108) mmHg ABG HCO3 (21-25) mmol/L ABG Total CO2 (19-24) mmol/L ABG O2 Saturation (94-97) % ABG Lactic Acid (0.5-1.6) mmol/L Sodium (137-145) mmol/L Potassium (3.5-5.1) mmol/L Carbon Dioxide (22-30) mmol/L BUN (9-20) mg/dL Creatinine (0.66-1.25) mg/dL Glucose (74-99) mg/dL POC Glucose (mg/dL) 166 H (75-99) mg/dL Plasma Lactic Acid Ruben (0.7-2.0) mmol/L Phosphorus (2.5-4.5) mg/dL Magnesium 1.4 L (1.6-2.3) mg/dL AST (17-59) U/L ALT (21-72) U/L Alkaline Phosphatase (38-126) U/L Troponin I 1.960 H* (0.000-0.034) ng/mL Total Protein (6.3-8.2) g/dL Albumin (3.5-5.0) g/dL Urine Protein (Negative) Ur Leukocyte Esterase (Negative) Urine WBC (0-5) /hpf Urine Sperm (None) /hpf 01/01/18 01/01/18 01/02/18 Range/Units 23:05 23:34 04:35 WBC (3.8-10.6) k/uL RBC (4.30-5.90) m/uL Hgb (13.0-17.5) gm/dL Hct (39.0-53.0) % MCHC (31.0-37.0) g/dL Neutrophils # (1.3-7.7) k/uL Lymphocytes # (1.0-4.8) k/uL INR (<1.2) ABG pH (7.35-7.45) ABG pCO2 (35-45) mmHg ABG pO2 (83-108) mmHg ABG HCO3 (21-25) mmol/L ABG Total CO2 (19-24) mmol/L ABG O2 Saturation (94-97) % ABG Lactic Acid 2.3 H* (0.5-1.6) mmol/L Sodium (137-145) mmol/L Potassium (3.5-5.1) mmol/L Carbon Dioxide 20 L (22-30) mmol/L BUN 63 H (9-20) mg/dL Creatinine 5.73 H* (0.66-1.25) mg/dL Glucose 120 H (74-99) mg/dL POC Glucose (mg/dL) 109 H (75-99) mg/dL Plasma Lactic Acid Ruben (0.7-2.0) mmol/L Phosphorus 5.1 H (2.5-4.5) mg/dL Magnesium (1.6-2.3) mg/dL AST (17-59) U/L ALT (21-72) U/L Alkaline Phosphatase (38-126) U/L Troponin I (0.000-0.034) ng/mL Total Protein (6.3-8.2) g/dL Albumin (3.5-5.0) g/dL Urine Protein (Negative) Ur Leukocyte Esterase (Negative) Urine WBC (0-5) /hpf Urine Sperm (None) /hpf 01/02/18 01/02/18 01/02/18 Range/Units 04:35 04:40 06:27 WBC 15.6 H (3.8-10.6) k/uL RBC 3.27 L (4.30-5.90) m/uL Hgb 9.0 L (13.0-17.5) gm/dL Hct 29.3 L (39.0-53.0) % MCHC 30.6 L (31.0-37.0) g/dL Neutrophils # 14.8 H (1.3-7.7) k/uL Lymphocytes # 0.3 L (1.0-4.8) k/uL INR (<1.2) ABG pH (7.35-7.45) ABG pCO2 28 L (35-45) mmHg ABG pO2 185 H (83-108) mmHg ABG HCO3 19 L (21-25) mmol/L ABG Total CO2 (19-24) mmol/L ABG O2 Saturation 99.8 H (94-97) % ABG Lactic Acid (0.5-1.6) mmol/L Sodium (137-145) mmol/L Potassium (3.5-5.1) mmol/L Carbon Dioxide (22-30) mmol/L BUN (9-20) mg/dL Creatinine (0.66-1.25) mg/dL Glucose (74-99) mg/dL POC Glucose (mg/dL) 120 H (75-99) mg/dL Plasma Lactic Acid Ruben (0.7-2.0) mmol/L Phosphorus (2.5-4.5) mg/dL Magnesium (1.6-2.3) mg/dL AST (17-59) U/L ALT (21-72) U/L Alkaline Phosphatase (38-126) U/L Troponin I (0.000-0.034) ng/mL Total Protein (6.3-8.2) g/dL Albumin (3.5-5.0) g/dL Urine Protein (Negative) Ur Leukocyte Esterase (Negative) Urine WBC (0-5) /hpf Urine Sperm (None) /hpf Microbiology - Last 24 Hours (Table) 01/01/18 15:40 Gram Stain - Preliminary Sputum Sputum Culture - Preliminary 01/01/18 13:54 Stool Culture - Preliminary Stool 01/01/18 11:00 Urine Culture - Preliminary Urine,Catheterized Assessment and Plan Plan: Assessment 1 acute cardiac pulmonary arrest. The patient was in asystole initially and following that he went into a PEA and the down time in between the time that the patient's parents home and emergency department was probably in the order of 20+ minutes. The patient had regained circulation and blood pressure following resuscitation here in the emergency department. Currently is on 8 g of norepinephrine infusion for blood pressure control. Potassium level is at 5.6 and the patient's cardiac rhythm is a fibrillation with a controlled rate. Monitor the patient is intubated on a mechanical ventilator and is unresponsive in a comatose condition while on no sedation. Suspect an underlying component of hypoxic encephalopathy. On 01/02/2018, the patient is post acute cardiac arrest. The patient has signs of severe hypoxic encephalopathy and he remains comatose. He is not completely brain that as the patient has brainstem reflexes. He does not respond to any painful stimulation. He did develop some myoclonic jerks for which she is on Depakote for now. He does have positive corneal reflex and lites reflex and breathing reflex and the gag reflex. The patient is currently on Depakote. EEG is to follow. Repeat CAT scan of the brain is to follow. Hemodynamically doing better on no pressors. He underwent hemodialysis yesterday. He is normothermic for now. 2 acute respiratory failure secondary to cardiac pulmonary arrest and the patient is currently intubated on a mechanical ventilator. The blood gases from today shows a component of respiratory alkalosis. 3 small bilateral pleural effusions. May be some limited residual infiltration of the left lung base. 4 End stage renal disease on hemodialysis through an AV fistula in the left upper extremity. The patient underwent hemodialysis without any ultrafiltration. 5 diffuse anasarca with large ascites and features of cirrhotic lever based on a CAT scan of the abdomen 6 2.3 cm soft brown tissue lesion in the posterior left pararenal space, etiology is not clear 7 history of hypertension 8 history of congestion heart failure diastolic dysfunction 9 chronic atrial fibrillation and the patient has a watchman's procedure and currently on no anticoagulation 10 gait dysfunction and history of recurrent falls 11 diabetes mellitus with possibly component of diabetic neuropathy 12 hyperlipidemia 13 hyperuricemia/gout. 14 lactic acidosis secondary to cardiac pulmonary arrest. The lactic acid improved and is currently down to 2.3 from a baseline of 9.1. 15, diarrhea, loose with negative for C. diff evaluation. Rule out underlying ischemic colitis post cardiac arrest. Plan We'll continue vent support. Appetite a volume to 450. Keep the respiratory rate of 12. Chest x-ray was reviewed. Continued IV Zosyn. Monitor neuro logic status. Repeat CAT scan of the brain. EEG today. Continue Depakote. Repeated neuro exams. There are signs of severe hypoxic encephalopathy and this will be discussed with the family. This will be also discussed with neurology. The patient is hemodynamically stable patient is currently off pressors. The patient underwent hemodialysis yesterday. Electrodes are within normal limits. He is on aspirin. He is on Plavix. Continue with midodrine.. He is receiving normal state rate of 75 /hour. We'll continue to follow. Condition is critical. Prognosis poor baseline above-mentioned comorbidities. This is a critically care evaluation that was done and 35 minutes. Time with Patient: Greater than 30
[2018-01-02] MEDS: PANTOPRAZOLE 40 MG/10 ML VIAL IVP SCH (08:35)
[2018-01-02] MEDS: GABAPENTIN 100 MG CAP PO SCH ×2 (08:35→21:23)
[2018-01-02] MEDS: CALCIUM ACETATE 667 MG CAP PO SCH ×4 (08:35→21:23)
[2018-01-02] MEDS: CHLORHEXIDINE GLUCONATE 15 ML CUP MUCOUS MEM SCH ×2 (08:35→21:23)
[2018-01-02] MEDS: ASPIRIN 81 MG PO SCH (08:35)
[2018-01-02] MEDS: CLOPIDOGREL 75 MG TAB PO SCH (08:36)
[2018-01-02] MEDS: VALPROATE SODIUM 500 MG in SODIUM CHLORIDE 0.9% 50 ML IVPB SCH ×2 (08:36→17:44)
[2018-01-02] MEDS ORDERED: cefTRIAXone IN SWFI 1,000 MG/10 ML SYRINGE IVP SCH (09:00)
--- NOTE | 2018-01-02 09:44 | ECHOF ---
Referral Reason:cardiac arrest MEASUREMENTS -------- HEIGHT: 182.9 cm WEIGHT: 90.3 kg BP: RVIDd: 3.5 cm (< 3.3) IVSd: 1.3 cm (0.6 - 1.1) LVIDd: 4.1 cm (3.9 - 5.3) LVPWd: 1.4 cm (0.6 - 1.1) IVSs: 1.6 cm LVIDs: 3.4 cm LVPWs: 1.6 cm LA Diam: 4.7 cm (2.7 - 3.8) Ao Diam: 3.5 cm (2.0 - 3.7) AV Cusp: 1.9 cm (1.5 - 2.6) LA Diam: 4.4 cm (2.7 - 3.8) MV EXCURSION: 28.460 mm (> 18.000) MV EF SLOPE: 64 mm/s (70 - 150) EPSS: 1.0 cm MV E Ishaan: 0.72 m/s MV DecT: 244 ms MV A Ishaan: 0.22 m/s MV E/A Ratio: 3.25 RAP: 5.00 mmHg RVSP: 36.03 mmHg FINDINGS -------- Sinus rhythm. This was a technically good study. The left ventricular size is normal. There is mild concentric left ventricular hypertrophy. Overa ll left ventricular systolic function is low-normal with, an EF between 50 - 55 %. The right ventricle is moderately enlarged. The left atrium is moderately dilated. The right atrial size is normal. There is mild aortic valve sclerosis. There is no evidence of aortic regurgitation. Mild mitral annular calcification present. Mild mitral regurgitation is present. Mild tricuspid regurgitation present. There is no evidence of pulmonary hypertension. The right v entricular systolic pressure, as measured by Doppler, is 36.03mmHg. There is no pulmonic regurgitation present. The aortic root size is normal. There is no pericardial effusion. CONCLUSIONS -------- 1. The left ventricular size is normal. 2. There is mild concentric left ventricular hypertrophy. 3. Overall left ventricular systolic function is low-normal with, an EF between 50 - 55 %. 4. The right ventricle is moderately enlarged. 5. The left atrium is moderately dilated. 6. The right atrial size is normal. 7. There is mild aortic valve sclerosis. 8. Mild mitral annular calcification present. 9. Mild mitral regurgitation is present. 10. Mild tricuspid regurgitation present. 11. There is no evidence of pulmonary hypertension. 12. The right ventricular systolic pressure, as measured by Doppler, is 36.03mmHg. 13. There is no pulmonic regurgitation present. 14. The aortic root size is normal. 15. There is no pericardial effusion. 16. Aortic valve is thickened RN [facility]OSP[facility]: Nayeli Taylor RDCS
--- NOTE | 2018-01-02 10:31 | CT ---
EXAMINATION TYPE: CT brain wo con DATE OF EXAM: 01/02/2018 COMPARISON: 01/01/2018 HISTORY: non responsive CT DLP: 1157 mGycm Automated exposure control for dose reduction was used. TECHNIQUE: CT scan of the head is performed without contrast. FINDINGS: There is no acute intracranial hemorrhage or midline shift identified. There is diffuse v entricular and sulcal prominence consistent with diffuse age-related cerebral atrophy. Small old lac unar injury of the anterior limb of the left internal capsule suspected on series 5 image 16. There i s low-attenuation in the periventricular white matter consistent with chronic small vessel ischemic c hange. The globes are intact and the visualized sinuses are clear. IMPRESSION: 1. No acute intracranial process. No intracranial hemorrhage identified. 2. Diffuse age-related cerebral atrophy and mild burden nonspecific white matter change, likely on th e basis of chronic microangiopathy is seen on the prior.
--- NOTE | 2018-01-02 10:49 | XR ---
EXAMINATION TYPE: XR chest 1V portable DATE OF EXAM: 01/02/2018 COMPARISON: 01/01/2018 INDICATION: Tube placement TECHNIQUE: Single frontal view of the chest is obtained. FINDINGS: The heart size is normal. The pulmonary vasculature is normal. The lungs are clear. Endotracheal tube is present with tip above the luzma, stable in position. Nasogastric tube extends through the region of the thorax. The distal tip appears to be in the region of the gastroesophageal junction and has been pulled back from prior examination. This could be advanced at least 10 cm for a dequate positioning IMPRESSION: 1. Nasogastric tube is been withdrawn and has its tip located near the gastroesophageal junction babak on. This could be advanced approximately 10 cm for better typical positioning. 2. No acute pulmonary process.
[2018-01-02 12:22] LABS: Glucose,Whole Blood 153 mg/dL (75-99)
[2018-01-02] MEDS: PIPERACILLIN-TAZOBACTAM 3.375 GM in DEXTROSE/WATER 1 50ML.BAG IVPB SCH ×2 (12:39→21:23)
--- NOTE | 2018-01-02 15:05 | P.PN ---
Subjective Progress Note Date: 01/02/18 This is a pleasant 72-year-old gentleman patient of Dr. Hope new to the office , Dr. Clarke, Dr. 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 Patient was walking up the steps with his walker, per patient got entangled with his walker, and fell down half way to this 16 step stairs, patient was noted to go in and out of consciousness, was found to be cold and clammy, and diaphoretic. Patient was assisted by the till the bottom of the stairs until she called 911, EMS found him with with asystole cardiac arrest and CPR was performed in the field for approximately 10 minutes prior to his transfer to the [facility], he received epinephrine and atropine, did not require cardioversion, currently now in the emergency room, nonresponsive to a full stimuli, mechanically vented anticipating his admission to ICU unless other circumstances prevents this admission here. I was notified by Dr. Martinez that the patient was in the emergency room, I discuss it with ER physician Dr. Gutiérrez, imaging studies are still pending, patient might be transferred to another facility should there be any intracranial hemorrhage noted. Awaiting final imaging and laboratory studies, prior to ICU transfer. Patient currently is in the emergency room when evaluated, intubated mechanically, As per the , patient is on Plavix and aspirin, and last dose of Plavix was 12/31/2017 for the watchman procedure, he was on Coumadin 45 days then maintained on Plavix aspirin for 4 months as per protocol for the watchman procedure. He was last admitted at [facility] for aspiration pneumonia October 2017, was last seen by Dr. Carolina 11/07/2017, no medication changes were made, last A1c was 6.0. He also had an EGD by Dr. Bonner, approximately 2 weeks ago secondary to liver cirrhosis, no liver biopsy performed, patient has ascites. In the emergency room, CT of the brain shows no evidence of acute intracranial hemorrhage or acute ischemic change or mass effect mild ventriculomegaly noted secondary to central cerebral atrophy, CT of the chest abdomen pelvis, showed diffuse anasarca, borderline cardiomegaly without pericardial effusion, 2.5 cm mixed density along the expected course of the proximal circumflex, ascending aorta 3.5 cm without dissection, small left trace right pleural effusion, atelectasis, also by granulomas, scattered nonenlarged mediastinal lymph nodes, adrenals and spleen and crisscrossed normal, hydropic gallbladder 4.7 cm, nodular liver, no focal liver lesion, 2.3 nodule left pararenal space bilateral kidneys are atrophic, exophytic 1.4 cm lesion lateral left kidney too small to characterize, possible cyst increased density expanding the left iliac 4 cm possibly intermuscular hemorrhage or underlying mass, soft tissue sandra laboratory data along the right paramedian anterior peritoneal lining could flex small area of focal hemorrhage in the per 20or soft tissue deposit from metastatic disease, indeterminate 2.3 cm round soft tissue lesion posterior left pararenal space cannot exclude neoplastic keep urology, short-term interval follow-up recommended, 2.5 cm partially calcified lesion proximal circumflex artery suspicious for coronary artery aneurysm. Symptoms prior to admission included diarrhea for 1 week duration, however he also saw Dr. Bonner for chronic diarrhea 3 years celiac panel was requested along with hepatitis C AFP serum plasmin level SANG. denies fever no chills no abdominal pain, patient is maintained on hemodialysis Saturdays, but he completed Augmentin for the aspiration pneumonia that was initially prescribed 11/01/2017, and prior to that he received clindamycin for 5 days 01/02:Patient remains in the intensive care unit. He is currently off vasopressors. There is concern for anoxic encephalopathy. EEG is to be done. CT of the brain done on January 02 shows no acute findings. Vision has been started on Valproate IV piggyback by Dr. Garcia. Vision is currently on antibiotics in form of a set her myosin and Zosyn. Equal management system was placed. Echocardiogram revealed EF of 50-55% with mild concentric left ventricular hypertrophy, left atrium moderately dilated, mild aortic valve sclerosis, mild mitral regurgitation, mild tricuspid regurgitation, no pulmonary hypertension. Repeat chest x-ray shows NG tube withdrawn and low tip was located in the gastroesophageal junction region. No acute pulmonary process. Family members are at the bedside and updated. Objective - Vital Signs Vital signs: Vital Signs Temp 98.1 F 01/02/18 00:00 Pulse 84 01/02/18 07:57 Resp 16 01/02/18 07:00 BP 122/52 01/02/18 07:00 Pulse Ox 100 01/02/18 07:00 Intake & Output 01/01/18 01/02/18 01/02/18 18:59 06:59 18:59 Intake Total 420 1453.679 75 Output Total 100 21 0 Balance 320 1432.679 75 Weight 90.3 kg 92 kg Intake: IV 300 1300 75 Magnesium Sulfate-D5w Pmx 300 1 gm In Dextrose/Water 1 100ml.bag @ 100 mls/hr IVPB Q1H [facility] Rx#: [id number] Piperacillin-Tazobactam 3 50 .375 gm In Dextrose/Water 1 50ml.bag @ 12.5 mls/hr IVPB Q12HR [facility] Rx#: [id number] Sodium Chloride 0.9% 1, 300 900 75 000 ml @ 75 mls/hr IV . [id number] [facility] Rx#:[id number] Valproate Sodium 500 mg 50 In Sodium Chloride 0.9% 50 ml @ 50 mls/hr IVPB Q8HR [facility] Rx#:[id number] Intake, IV Titration 120 73.679 Amount Norepinephrin 4 mg-0.9% 120 Ns Pmx 4 mg In 250 ml @ Per Protocol IV .Q0M [facility] Rx#:[id number] Norepinephrine 16 mg In 73.679 Dextrose 5% in Water 250 ml @ Titrate IV .Q0M [facility] Rx#:[id number] Oral 80 Output: Urine 100 21 0 Uretheral (Duran) 100 Other: Voiding Method Indwelling Catheter Indwelling Catheter ABP, PAP, CO, CI - Last Documented Arterial Blood Pressure 150/41 - Constitutional General appearance: Present: average body habitus, no acute distress. Absent: severe distress - EENT Eyes: Absent: scleral icterus ENT: Present: other (ET and oral gastric tube in place) - Neck Neck: Present: normal ROM. Absent: rigidity, thyromegaly - Respiratory Respiratory: bilateral: CTA, negative: rales, rhonchi, wheezing - Cardiovascular Rhythm: irregularly irregular Heart sounds: normal: S1, S2 Abnormal Heart Sounds: Absent: systolic murmur, diastolic murmur - Gastrointestinal General gastrointestinal: Present: normal bowel sounds. Absent: hepatomegaly, tenderness - Neurologic Neurologic: Absent: CNII-XII intact - Musculoskeletal Musculoskeletal: Absent: gait normal, generalized weakness, strength equal bilaterally, right sided weakness, left sided weakness - Psychiatric Psychiatric: Absent: A&O x's 3, appropriate affect, intact judgment & insight - Labs CBC & Chem 7: 01/02/18 04:35 01/02/18 04:35 Labs: Abnormal Lab Results - Last 24 Hours (Table) 01/01/18 01/01/18 01/01/18 Range/Units 10:44 10:44 10:44 WBC (3.8-10.6) k/uL RBC 3.36 L (4.30-5.90) m/uL Hgb 9.9 L (13.0-17.5) gm/dL Hct 31.7 L (39.0-53.0) % MCHC (31.0-37.0) g/dL Neutrophils # (1.3-7.7) k/uL Lymphocytes # (1.0-4.8) k/uL INR 1.2 H (<1.2) ABG pH (7.35-7.45) ABG pCO2 (35-45) mmHg ABG pO2 (83-108) mmHg ABG HCO3 (21-25) mmol/L ABG Total CO2 (19-24) mmol/L ABG O2 Saturation (94-97) % ABG Lactic Acid (0.5-1.6) mmol/L Sodium (137-145) mmol/L Potassium 5.6 H (3.5-5.1) mmol/L Carbon Dioxide 15 L (22-30) mmol/L BUN 98 H* (9-20) mg/dL Creatinine 7.90 H* (0.66-1.25) mg/dL Glucose 116 H (74-99) mg/dL POC Glucose (mg/dL) (75-99) mg/dL Plasma Lactic Acid Ruben (0.7-2.0) mmol/L Phosphorus 8.2 H* (2.5-4.5) mg/dL Magnesium (1.6-2.3) mg/dL AST 61 H (17-59) U/L ALT 19 L (21-72) U/L Alkaline Phosphatase 132 H (38-126) U/L Troponin I (0.000-0.034) ng/mL Total Protein 5.7 L (6.3-8.2) g/dL Albumin 2.9 L (3.5-5.0) g/dL Urine Protein (Negative) Ur Leukocyte Esterase (Negative) Urine WBC (0-5) /hpf Urine Sperm (None) /hpf 01/01/18 01/01/18 01/01/18 Range/Units 10:44 10:44 10:51 WBC (3.8-10.6) k/uL RBC (4.30-5.90) m/uL Hgb (13.0-17.5) gm/dL Hct (39.0-53.0) % MCHC (31.0-37.0) g/dL Neutrophils # (1.3-7.7) k/uL Lymphocytes # (1.0-4.8) k/uL INR (<1.2) ABG pH (7.35-7.45) ABG pCO2 (35-45) mmHg ABG pO2 (83-108) mmHg ABG HCO3 (21-25) mmol/L ABG Total CO2 (19-24) mmol/L ABG O2 Saturation (94-97) % ABG Lactic Acid (0.5-1.6) mmol/L Sodium (137-145) mmol/L Potassium (3.5-5.1) mmol/L Carbon Dioxide (22-30) mmol/L BUN (9-20) mg/dL Creatinine (0.66-1.25) mg/dL Glucose (74-99) mg/dL POC Glucose (mg/dL) 114 H (75-99) mg/dL Plasma Lactic Acid Ruben 9.1 H* (0.7-2.0) mmol/L Phosphorus (2.5-4.5) mg/dL Magnesium (1.6-2.3) mg/dL AST (17-59) U/L ALT (21-72) U/L Alkaline Phosphatase (38-126) U/L Troponin I 0.035 H* (0.000-0.034) ng/mL Total Protein (6.3-8.2) g/dL Albumin (3.5-5.0) g/dL Urine Protein (Negative) Ur Leukocyte Esterase (Negative) Urine WBC (0-5) /hpf Urine Sperm (None) /hpf 01/01/18 01/01/18 01/01/18 Range/Units 10:52 11:00 15:44 WBC (3.8-10.6) k/uL RBC (4.30-5.90) m/uL Hgb (13.0-17.5) gm/dL Hct (39.0-53.0) % MCHC (31.0-37.0) g/dL Neutrophils # (1.3-7.7) k/uL Lymphocytes # (1.0-4.8) k/uL INR (<1.2) ABG pH 7.30 L (7.35-7.45) ABG pCO2 34 L (35-45) mmHg ABG pO2 >400 H (83-108) mmHg ABG HCO3 17 L (21-25) mmol/L ABG Total CO2 18 L (19-24) mmol/L ABG O2 Saturation 97.9 H (94-97) % ABG Lactic Acid (0.5-1.6) mmol/L Sodium (137-145) mmol/L Potassium (3.5-5.1) mmol/L Carbon Dioxide (22-30) mmol/L BUN (9-20) mg/dL Creatinine (0.66-1.25) mg/dL Glucose (74-99) mg/dL POC Glucose (mg/dL) 174 H (75-99) mg/dL Plasma Lactic Acid Ruben (0.7-2.0) mmol/L Phosphorus (2.5-4.5) mg/dL Magnesium (1.6-2.3) mg/dL AST (17-59) U/L ALT (21-72) U/L Alkaline Phosphatase (38-126) U/L Troponin I (0.000-0.034) ng/mL Total Protein (6.3-8.2) g/dL Albumin (3.5-5.0) g/dL Urine Protein 2+ H (Negative) Ur Leukocyte Esterase Small H (Negative) Urine WBC 33 H (0-5) /hpf Urine Sperm Many H (None) /hpf 01/01/18 01/01/18 01/01/18 Range/Units 16:10 16:10 16:10 WBC (3.8-10.6) k/uL RBC (4.30-5.90) m/uL Hgb (13.0-17.5) gm/dL Hct (39.0-53.0) % MCHC (31.0-37.0) g/dL Neutrophils # (1.3-7.7) k/uL Lymphocytes # (1.0-4.8) k/uL INR (<1.2) ABG pH (7.35-7.45) ABG pCO2 (35-45) mmHg ABG pO2 (83-108) mmHg ABG HCO3 (21-25) mmol/L ABG Total CO2 (19-24) mmol/L ABG O2 Saturation (94-97) % ABG Lactic Acid (0.5-1.6) mmol/L Sodium 135 L (137-145) mmol/L Potassium 5.3 H (3.5-5.1) mmol/L Carbon Dioxide 17 L (22-30) mmol/L BUN 101 H* (9-20) mg/dL Creatinine 7.67 H* (0.66-1.25) mg/dL Glucose 195 H (74-99) mg/dL POC Glucose (mg/dL) (75-99) mg/dL Plasma Lactic Acid Ruben 4.4 H* (0.7-2.0) mmol/L Phosphorus (2.5-4.5) mg/dL Magnesium (1.6-2.3) mg/dL AST (17-59) U/L ALT (21-72) U/L Alkaline Phosphatase (38-126) U/L Troponin I 1.300 H* (0.000-0.034) ng/mL Total Protein (6.3-8.2) g/dL Albumin (3.5-5.0) g/dL Urine Protein (Negative) Ur Leukocyte Esterase (Negative) Urine WBC (0-5) /hpf Urine Sperm (None) /hpf 01/01/18 01/01/18 01/01/18 Range/Units 17:53 21:20 23:05 WBC (3.8-10.6) k/uL RBC (4.30-5.90) m/uL Hgb (13.0-17.5) gm/dL Hct (39.0-53.0) % MCHC (31.0-37.0) g/dL Neutrophils # (1.3-7.7) k/uL Lymphocytes # (1.0-4.8) k/uL INR (<1.2) ABG pH (7.35-7.45) ABG pCO2 (35-45) mmHg ABG pO2 (83-108) mmHg ABG HCO3 (21-25) mmol/L ABG Total CO2 (19-24) mmol/L ABG O2 Saturation (94-97) % ABG Lactic Acid (0.5-1.6) mmol/L Sodium (137-145) mmol/L Potassium (3.5-5.1) mmol/L Carbon Dioxide (22-30) mmol/L BUN (9-20) mg/dL Creatinine (0.66-1.25) mg/dL Glucose (74-99) mg/dL POC Glucose (mg/dL) 166 H (75-99) mg/dL Plasma Lactic Acid Ruben (0.7-2.0) mmol/L Phosphorus (2.5-4.5) mg/dL Magnesium 1.4 L (1.6-2.3) mg/dL AST (17-59) U/L ALT (21-72) U/L Alkaline Phosphatase (38-126) U/L Troponin I 1.960 H* (0.000-0.034) ng/mL Total Protein (6.3-8.2) g/dL Albumin (3.5-5.0) g/dL Urine Protein (Negative) Ur Leukocyte Esterase (Negative) Urine WBC (0-5) /hpf Urine Sperm (None) /hpf 01/01/18 01/01/18 01/02/18 Range/Units 23:05 23:34 04:35 WBC (3.8-10.6) k/uL RBC (4.30-5.90) m/uL Hgb (13.0-17.5) gm/dL Hct (39.0-53.0) % MCHC (31.0-37.0) g/dL Neutrophils # (1.3-7.7) k/uL Lymphocytes # (1.0-4.8) k/uL INR (<1.2) ABG pH (7.35-7.45) ABG pCO2 (35-45) mmHg ABG pO2 (83-108) mmHg ABG HCO3 (21-25) mmol/L ABG Total CO2 (19-24) mmol/L ABG O2 Saturation (94-97) % ABG Lactic Acid 2.3 H* (0.5-1.6) mmol/L Sodium (137-145) mmol/L Potassium (3.5-5.1) mmol/L Carbon Dioxide 20 L (22-30) mmol/L BUN 63 H (9-20) mg/dL Creatinine 5.73 H* (0.66-1.25) mg/dL Glucose 120 H (74-99) mg/dL POC Glucose (mg/dL) 109 H (75-99) mg/dL Plasma Lactic Acid Ruben (0.7-2.0) mmol/L Phosphorus 5.1 H (2.5-4.5) mg/dL Magnesium (1.6-2.3) mg/dL AST (17-59) U/L ALT (21-72) U/L Alkaline Phosphatase (38-126) U/L Troponin I (0.000-0.034) ng/mL Total Protein (6.3-8.2) g/dL Albumin (3.5-5.0) g/dL Urine Protein (Negative) Ur Leukocyte Esterase (Negative) Urine WBC (0-5) /hpf Urine Sperm (None) /hpf 01/02/18 01/02/18 01/02/18 Range/Units 04:35 04:40 06:27 WBC 15.6 H (3.8-10.6) k/uL RBC 3.27 L (4.30-5.90) m/uL Hgb 9.0 L (13.0-17.5) gm/dL Hct 29.3 L (39.0-53.0) % MCHC 30.6 L (31.0-37.0) g/dL Neutrophils # 14.8 H (1.3-7.7) k/uL Lymphocytes # 0.3 L (1.0-4.8) k/uL INR (<1.2) ABG pH (7.35-7.45) ABG pCO2 28 L (35-45) mmHg ABG pO2 185 H (83-108) mmHg ABG HCO3 19 L (21-25) mmol/L ABG Total CO2 (19-24) mmol/L ABG O2 Saturation 99.8 H (94-97) % ABG Lactic Acid (0.5-1.6) mmol/L Sodium (137-145) mmol/L Potassium (3.5-5.1) mmol/L Carbon Dioxide (22-30) mmol/L BUN (9-20) mg/dL Creatinine (0.66-1.25) mg/dL Glucose (74-99) mg/dL POC Glucose (mg/dL) 120 H (75-99) mg/dL Plasma Lactic Acid Ruben (0.7-2.0) mmol/L Phosphorus (2.5-4.5) mg/dL Magnesium (1.6-2.3) mg/dL AST (17-59) U/L ALT (21-72) U/L Alkaline Phosphatase (38-126) U/L Troponin I (0.000-0.034) ng/mL Total Protein (6.3-8.2) g/dL Albumin (3.5-5.0) g/dL Urine Protein (Negative) Ur Leukocyte Esterase (Negative) Urine WBC (0-5) /hpf Urine Sperm (None) /hpf Microbiology - Last 24 Hours (Table) 01/01/18 15:40 Gram Stain - Preliminary Sputum Sputum Culture - Preliminary 01/01/18 13:54 Stool Culture - Preliminary Stool 01/01/18 11:00 Urine Culture - Preliminary Urine,Catheterized Assessment and Plan Plan: 1. Syncope with Cardiac arrest, malignant arrhythmias need to be ruled out, known history of atrial fibrillation, status post watchman procedure, patient cannot be anticoagulated secondary to epistaxis, patient currently is mechanically and related secondary to acute respiratory failure Dr. Martinez and Dr. Lechuga consulted, other causes of the cardiac arrest could be pulmonary emboli rather than acute neurologic events such as seizure or CVA. Patient will be closely monitored including a follow-up CAT scan next 24-48 hours, EEG of the brain, echocardiogram, and also will be evaluated for obstructive coronary artery disease,. Cardiac biomarkers to be serially done, urine drug screen 2. Transient hypotension secondary to cardiovascular collapse, pressor agents has been provided sepsis cannot be ruled out, acute UTI with suspected hospital- acquired pneumonia and left infiltrate, along with adrenal sufficiency, cortisol to be obtained, might need hydrocortisone if blood pressure remains low. Patient is on admitted during. 3. 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 Dukes 4. Acute hypoxemic respiratory failure secondary to cardiac arrest and suspected hospital-acquired pneumonia, patient currently is mechanically ventilated Dr. Lechuga following closely 5. Atrial fibrillation, chronic status post watchman procedure for occlusion of left atrial appendage July 2017, not requiring any long-term anticoagulation, on aspirin. Plavix should have been completed as of 2017 cardiology following 6. Liver cirrhosis, ascites this was recently investigated by Dr. Bonner at [facility] November 2017 with elevated alkaline phosphatase level, elevated serial plasmin level, elevated alpha-1 antitrypsin, and elevated ferritin levels at 2200, other test that was negative include SANG, hepatitis panel was negative, for both B, and C. No liver biopsy performed 7. Acute on Chronic diarrhea with negative celiac reflex panel, was seen by Dr. Gallardo recently, however with recent antibiotic exposure Augmentin and clindamycin 6 weeks prior to admission, C. diff toxin would be evaluated 8. Left lower lobe infiltrate, gram-negative pneumonia along with aspiration pneumonia is suspected, history of aspiration pneumonia last October 2017, with his hospitalization, continue Zosyn. 9. Diabetes mellitus with last hemoglobin A1c of 5.3, history of hypoglycemia, with his current syncopal events, hypoglycemic events and complications the to be monitored 10. Head concussion with falling from the stairs, CAT scan of the brain failed to reveal any acute bleed or ischemic infarcts, cervical CT failed to reveal any fractures patient is on aspirin for anticoagulation, recently completed Plavix as of 12/31/2017, patient would repeat a CAT scan in the brain next 24 hours 11. Generalized anasarca. Once stabilized, IV diuretics 12. Moderate protein calorie malnutrition with mild to moderate protein deficiency, nutritional requirements will be reevaluated next 24 hours 13. Mild troponin elevation possibly related to cardiac arrest, however secondary ischemic event cannot be ruled out cardiology following, no immediate need for cardiac cath was anticipated by cardiology, continue for close surveillance 14. Acute urinary tract infection, so seen to be initiated urine cultures and blood cultures have been sent as hospital-acquired pneumonia is suspected 15. Acute anoxic encephalopathy. Neurology is on. CAT scan brain showed no acute findings. Patient is on Valproate IVPB 500mg every 12 hours. DVT prophylaxis, RALPH montes, patient's high risk with known history of liposarcoma , as well as debility, however with recent head concussion going to delay with chemical anticoagulation till after the second CAT scan will be done 14. GI prophylaxis Prognosis poor CODE STATUS full Discharge plan: Patient is considered for comfort care Impression and plan of care have been directed as dictated by the signing physician. Tamiko March nurse practitioner acting as scribe for signing physician.
--- NOTE | 2018-01-02 17:08 | PN ---
PROGRESS NOTE Mr. Diallo is a 72-year-old male with a history of atrial fibrillation, status post Watchman procedure, who presented with a cardiac arrest. He is intubated and unresponsive. Hemodynamically he is stable. He is on no pressors and his urine output is stable. He has some myoclonic jerk and myoclonic activity, but he is not responsive to any painful stimuli. A repeat CT scan of the head performed today revealed no acute changes. No bleeding. He has no evidence of bradyarrhythmia or tachyarrhythmia and hemodynamically he is stable. PHYSICAL EXAMINATION: Blood pressure 144/40 with a heart rate in the 70s. LUNGS: Clear. HEART: Irregularly irregular. S1, S2. No S3. No rub. With a systolic murmur. ABDOMEN: Soft. No organomegaly. EXTREMITIES: Trace to 1+ edema. LAB DATA: Hemoglobin 9. BUN and creatinine of 63 and 5.73. His peak troponin is 1.96. He had an echocardiogram that showed an ejection fraction of 50% to 55% with mild mitral and tricuspid regurgitation. IMPRESSION: 1. Cardiopulmonary arrest, etiology unclear. No evidence of tachyarrhythmia documented or bradyarrhythmia. 2. Atrial fibrillation, persistent, status post Watchman procedure. 3. Chronic kidney disease, on hemodialysis. 4. History of hypertension. 5. History of diabetes. RECOMMENDATIONS: From the cardiac standpoint, we will continue clinical observation. I am sure, unfortunately, that the prognosis is quite poor in view of the severe anoxic encephalopathy this far. I have discussed those findings with the family at length and they are in fully understanding and agreement about the guarded prognosis. MMODL / IJN: [id number] /
[2018-01-02 18:42] LABS: Glucose,Whole Blood 165 mg/dL (75-99)
--- NOTE | 2018-01-02 18:59 | CONS ---
CONSULTATION REASON FOR CONSULT: End-stage renal disease. HISTORY OF PRESENT ILLNESS: The patient is a 72-year-old male with end-stage renal disease, on hemodialysis on a Friday, , Friday schedule. He was admitted to the hospital via EMS. Patient called his at home as he was not feeling well. He eventually fell down. On arrival of EMS. He was found to be in asystole and CPR was initiated. The patient is currently on the vent and it appears that he has sustained significant anoxic encephalopathy. He has just returned from CT scan. The patient was dialyzed last night. He has not had any improvement in his mentation. The troponin was elevated at 1.9. Hemoglobin has been about 9.9 to 9 g/dL. There was no fever on admission. Lactic acid is at 2.3. Overall, patient has had significant decline in his status as outpatient. He seems to have deteriorated quite a bit over the last 6-8 months. PAST MEDICAL HISTORY: End-stage renal disease, CKD mineral bone disorder, anemia of chronic disease, diabetes, history of CHF, coronary artery disease, atrial fibrillation, history of sarcoma, details not clear. The patient is a snow bird and he dialyzes out of town most of the winter. PAST SURGICAL HISTORY: AV fistula, cataract surgery, filter for DVT. SOCIAL HISTORY: The patient is a former smoker. No history of drug abuse or alcohol abuse. MEDICATIONS: Medications at home prior to admission included Zyloprim, PhosLo, aspirin, Plavix, Sensipar, Colace, Prozac, Lasix, Neurontin, Zestril, Claritin, midodrine, Prilosec, Zocor, Norvasc, Ultram, Ambien. EXAMINATION: Patient is currently on the vent. He is completely unresponsive. Blood pressure this morning was 111/38, heart rate 75 per minute. He is afebrile. Examination of the heart: S1, S2. Examination of the lungs: Bilateral breath sounds are heard. Abdomen is soft, nontender. Exam of lower extremities shows no significant edema. STUDENT SUPPORT SERVICES DIRECTOR exam: The patient remains completely unresponsive without sedation. LABS: Show hemoglobin 9.0, sodium 138, potassium 4.8, lactic acid 2.3, creatinine 5.7, troponin 1.9. ASSESSMENT: 1. End-stage renal disease, on hemodialysis on a Friday, , Friday schedule, status post dialysis yesterday. 2. Status post cardiac arrest. 3. High suspicion for severe underlying anoxic encephalopathy. 4. Elevated lactic acid levels secondary to cardiac arrest. 5. CKD mineral bone disorder maintained on PhosLo once patient starts tube feedings. 6. Type 2 diabetes. 7. Respiratory failure, currently on mechanical ventilation, status post cardiac arrest. PLAN: Possible dialysis in a.m. depending on overall general condition. Overall prognosis is poor. MMODL / IJN: [id number] /
--- NOTE | 2018-01-02 21:08 | P.CNNES ---
History of Present Illness Consult date: 01/02/18 Requesting physician: Kalina Benítez Reason for Consult: Cardiac arrest History of Present Illness: Patient is a 72-year-old male who is being evaluated by the neurology service on 01/02/2018 per the request of Dr. Benítez for cardiac arrest after syncope. Patient has medical history of atrial fibrillation, end-stage renal disease on hemodialysis, diabetes mellitus, CHF, hypertension, and history of CVA. Patient was at home walking up the steps with his walker when patient got tangled in his walker. Patient fell intermediate down the steps and noted him to be unresponsive. 911 was called and EMS found him in asystole. CPR was performed in the field for approximately 10 minutes prior to transfer to [facility]. Patient did receive epinephrine and atropine. Patient was intubated and placed on mechanical ventilation. Patient was transferred to the ICU. Vital signs on admission show temperature of 95.5, pulse 105, respirations 16, blood pressure 147/56, with oxygen saturation of 88% on room air. Patient was intubated and oxygen saturation improved. Labs on admission included WBCs of 9.2, RBC 3.3, hemoglobin 9.9, hematocrit 31.7. BUN 98 with creatinine 7.9. Lactic acid 9.1 with phosphorus of 8.2. Elevated liver enzymes and positive troponin. At the time of my evaluation, patient is intubated in the ICU on mechanical ventilation. Review of Systems REVIEW OF SYSTEMS: Otherwise unremarkable and noncontributory. Past Medical History Past Medical History: Cancer, Heart Failure, CVA/TIA, Diabetes Mellitus, Hyperlipidemia, Hypertension, Pulmonary Embolus (PE), Sleep Apnea/CPAP/BIPAP Additional Past Medical History / Comment(s): ESRD (dialysis Fri, , Friday.) Sarcoma (behind LT kidney per friend) History of Any Multi-Drug Resistant Organisms: None Reported Past Surgical History: Unable to Obtain Additional Past Surgical History / Comment(s): Watchman filter (for blood clots, ) Fistula (LUE), cataract removal Past Anesthesia/Blood Transfusion Reactions: No Reported Reaction Past Psychological History: Depression Smoking Status: Former smoker Past Alcohol Use History: None Reported Past Drug Use History: None Reported - Past Family History Father History Unknown: Yes Additional Family Medical History / Comment(s): PT WAS ADOPTED Mother History Unknown: Yes Additional Family Medical History / Comment(s): PT WAS ADOPTED Medications and Allergies Home Medications Medication Instructions Recorded Confirmed Type Acetaminophen/Diphenhydramine 1 tab PO HS 01/01/18 01/01/18 History [Tylenol PM 500-25mg] Allopurinol [Zyloprim] 100 mg PO DAILY 01/01/18 01/01/18 History Aspirin EC [Ecotrin Low Dose] 81 mg PO DAILY 01/01/18 01/01/18 History Calcium Acetate [Phoslo] 667 mg PO ACHS 01/01/18 01/01/18 History Docusate [Colace] 100 mg PO BID PRN 01/01/18 01/01/18 History Ethyl Chloride [place] 1 spray TOPICAL TUTHSA 01/01/18 01/01/18 History FLUoxetine HCL [PROzac] 40 mg PO DAILY 01/01/18 01/01/18 History Fluticasone Nasal [place] [Flonase 2 spr EA NOSTRIL DAILY 01/01/18 01/01/18 History Nasal [place]] Furosemide [Lasix] 60 mg PO BID 01/01/18 01/01/18 History Gabapentin [Neurontin] 100 mg PO DAILY 01/01/18 01/01/18 History Gabapentin [Neurontin] 200 mg PO HS 01/01/18 01/01/18 History Lisinopril [Zestril] 10 mg PO SUMOWEFR 01/01/18 01/01/18 History Loratadine [Claritin] 10 mg PO DAILY 01/01/18 01/01/18 History Midodrine [ProAmatine] 10 mg PO DIRECTED 01/01/18 01/01/18 History Multivits,Th W-Ca,Fe,Oth Min 1 tab PO DAILY 01/01/18 01/01/18 History [Therapeutic M] Mupirocin 2% Oint [Bactroban 2% 1 applic TOPICAL BID 01/01/18 01/01/18 History Oint] Omeprazole [PriLOSEC] 40 mg PO DAILY 01/01/18 01/01/18 History Simvastatin [Zocor] 20 mg PO HS 01/01/18 01/01/18 History amLODIPine [Norvasc] 10 mg PO DAILY 01/01/18 01/01/18 History traMADol HCL [Ultram] 50 mg PO Q6HR 01/01/18 01/01/18 History Allergies Allergy/AdvReac Type Severity Reaction Status Date / Time No Known Allergies Allergy Verified 01/01/18 10:55 Physical Examination - Vital Signs Vital Signs: Vital Signs Temp Pulse Resp BP Pulse Ox 01/02/18 20:09 80 01/02/18 18:00 77 21 100 01/02/18 17:30 85 20 100 01/02/18 17:00 88 20 100 01/02/18 16:30 85 20 100 01/02/18 16:00 99.6 F 76 19 100 01/02/18 15:30 80 19 100 01/02/18 15:23 88 01/02/18 15:09 76 01/02/18 15:00 82 18 100 01/02/18 14:30 76 20 100 01/02/18 14:00 76 21 100 01/02/18 13:30 73 19 100 01/02/18 13:00 74 15 100 01/02/18 12:30 79 15 99 01/02/18 12:00 98.9 F 72 27 H 100 01/02/18 11:30 77 20 98 01/02/18 11:00 70 21 100 01/02/18 10:30 87 23 100 01/02/18 10:19 77 01/02/18 09:30 77 21 100 01/02/18 09:00 83 21 100 01/02/18 08:30 84 22 122/52 100 01/02/18 08:00 98.6 F 80 23 122/52 100 01/02/18 07:57 84 01/02/18 07:41 81 01/02/18 07:30 76 21 122/52 100 01/02/18 07:00 75 16 122/52 100 01/02/18 06:00 83 18 100 01/02/18 05:00 72 19 87/42 100 01/02/18 04:00 75 20 100 01/02/18 03:00 72 21 97 01/02/18 02:00 81 15 98 01/02/18 01:15 77 20 100 01/02/18 01:00 79 18 106/57 98 01/02/18 00:45 85 17 95 01/02/18 00:30 81 15 99 01/02/18 00:15 83 14 99 01/02/18 00:00 98.1 F 84 14 98 01/01/18 23:45 84 15 92 L 01/01/18 23:30 88 14 95 01/01/18 23:15 77 19 161/76 99 01/01/18 23:12 82 15 100 01/01/18 23:00 95 73 H 100 01/01/18 22:45 93 15 100 01/01/18 22:30 96 61 H 100 01/01/18 22:15 85 18 100 01/01/18 22:00 96 18 100 01/01/18 21:45 102 H 29 H 100 01/01/18 21:30 97 11 L 100 01/01/18 21:15 92 32 H 100 01/01/18 21:00 96 18 100 Intake and Output 01/02/18 01/02/18 01/02/18 06:59 14:59 22:59 Intake Total 1016.332 700 425 Output Total 15 0 0 Balance 1001.332 700 425 Intake: IV 1000 700 425 Magnesium Sulfate-D5w Pmx 300 1 gm In Dextrose/Water 1 100ml.bag @ 100 mls/hr IVPB Q1H GARY Rx#: [id number] Piperacillin-Tazobactam 3 50 50 .375 gm In Dextrose/Water 1 50ml.bag @ 12.5 mls/hr IVPB Q12HR GARY Rx#: [id number] Sodium Chloride 0.9% 1, 600 600 375 000 ml @ 75 mls/hr IV . [id number] GARY Rx#:[id number] Valproate Sodium 500 mg 50 50 50 In Sodium Chloride 0.9% 50 ml @ 50 mls/hr IVPB Q8HR GARY Rx#:[id number] Intake, IV Titration 16.332 Amount Norepinephrine 16 mg In 16.332 Dextrose 5% in Water 250 ml @ Titrate IV .Q0M GARY Rx#:[id number] Output: Urine 15 0 0 Other: Voiding Method Indwelling Catheter Indwelling Catheter Indwelling Catheter Weight 92 kg ABP, PAP, CO, CI - Last 8 Hours Arterial Blood Pressure 145/48 Arterial Blood Pressure 161/54 Arterial Blood Pressure 172/55 Arterial Blood Pressure 150/49 Arterial Blood Pressure 136/45 Arterial Blood Pressure 140/47 Arterial Blood Pressure 184/53 Arterial Blood Pressure 144/45 Arterial Blood Pressure 138/42 Arterial Blood Pressure 125/43 Arterial Blood Pressure 130/43 PHYSICAL EXAM: GENERAL APPEARANCE: Patient is a well-developed, male who is intubated on mechanical ventilation in the ICU HEENT: Normocephalic, atraumatic, bilateral eyes with upward gaze CARDIOVASCULAR: Regular rate and rhythm. ABDOMEN: Nontender, nondistended. EXTREMITIES: Show no edema or clubbing. NEUROLOGICAL EXAM: A meaningful neurological exam could not be performed due to patient's unresponsiveness. Patient has no corneal reflex, silent toes, and pupils are unresponsive to light. Patient does not withdraw to pain. Patient is not sedated. Results - Laboratory Findings CBC and BMP: 01/02/18 04:35 01/02/18 04:35 Abnormal Lab Findings: Abnormal Labs 01/01/18 01/01/18 01/01/18 10:44 10:44 10:44 WBC RBC 3.36 L Hgb 9.9 L Hct 31.7 L MCHC Neutrophils # Lymphocytes # INR 1.2 H ABG pH ABG pCO2 ABG pO2 ABG HCO3 ABG Total CO2 ABG O2 Saturation ABG Lactic Acid Sodium Potassium 5.6 H Carbon Dioxide 15 L BUN 98 H* Creatinine 7.90 H* Glucose 116 H POC Glucose (mg/dL) Plasma Lactic Acid Ruben Phosphorus 8.2 H* Magnesium AST 61 H ALT 19 L Alkaline Phosphatase 132 H Troponin I Total Protein 5.7 L Albumin 2.9 L Urine Protein Ur Leukocyte Esterase Urine WBC Urine Sperm Hep Bs Antibody 01/01/18 01/01/18 01/01/18 10:44 10:44 10:51 WBC RBC Hgb Hct MCHC Neutrophils # Lymphocytes # INR ABG pH ABG pCO2 ABG pO2 ABG HCO3 ABG Total CO2 ABG O2 Saturation ABG Lactic Acid Sodium Potassium Carbon Dioxide BUN Creatinine Glucose POC Glucose (mg/dL) 114 H Plasma Lactic Acid Ruben 9.1 H* Phosphorus Magnesium AST ALT Alkaline Phosphatase Troponin I 0.035 H* Total Protein Albumin Urine Protein Ur Leukocyte Esterase Urine WBC Urine Sperm Hep Bs Antibody 01/01/18 01/01/18 01/01/18 10:52 11:00 15:44 WBC RBC Hgb Hct MCHC Neutrophils # Lymphocytes # INR ABG pH 7.30 L ABG pCO2 34 L ABG pO2 >400 H ABG HCO3 17 L ABG Total CO2 18 L ABG O2 Saturation 97.9 H ABG Lactic Acid Sodium Potassium Carbon Dioxide BUN Creatinine Glucose POC Glucose (mg/dL) 174 H Plasma Lactic Acid Ruben Phosphorus Magnesium AST ALT Alkaline Phosphatase Troponin I Total Protein Albumin Urine Protein 2+ H Ur Leukocyte Esterase Small H Urine WBC 33 H Urine Sperm Many H Hep Bs Antibody 01/01/18 01/01/18 01/01/18 16:10 16:10 16:10 WBC RBC Hgb Hct MCHC Neutrophils # Lymphocytes # INR ABG pH ABG pCO2 ABG pO2 ABG HCO3 ABG Total CO2 ABG O2 Saturation ABG Lactic Acid Sodium 135 L Potassium 5.3 H Carbon Dioxide 17 L BUN 101 H* Creatinine 7.67 H* Glucose 195 H POC Glucose (mg/dL) Plasma Lactic Acid Ruben 4.4 H* Phosphorus Magnesium AST ALT Alkaline Phosphatase Troponin I 1.300 H* Total Protein Albumin Urine Protein Ur Leukocyte Esterase Urine WBC Urine Sperm Hep Bs Antibody 01/01/18 01/01/18 01/01/18 17:53 21:20 21:20 WBC RBC Hgb Hct MCHC Neutrophils # Lymphocytes # INR ABG pH ABG pCO2 ABG pO2 ABG HCO3 ABG Total CO2 ABG O2 Saturation ABG Lactic Acid Sodium Potassium Carbon Dioxide BUN Creatinine Glucose POC Glucose (mg/dL) 166 H Plasma Lactic Acid Ruben Phosphorus Magnesium 1.4 L AST ALT Alkaline Phosphatase Troponin I Total Protein Albumin Urine Protein Ur Leukocyte Esterase Urine WBC Urine Sperm Hep Bs Antibody Reactive H 01/01/18 01/01/18 01/01/18 23:05 23:05 23:34 WBC RBC Hgb Hct MCHC Neutrophils # Lymphocytes # INR ABG pH ABG pCO2 ABG pO2 ABG HCO3 ABG Total CO2 ABG O2 Saturation ABG Lactic Acid 2.3 H* Sodium Potassium Carbon Dioxide BUN Creatinine Glucose POC Glucose (mg/dL) 109 H Plasma Lactic Acid Ruben Phosphorus Magnesium AST ALT Alkaline Phosphatase Troponin I 1.960 H* Total Protein Albumin Urine Protein Ur Leukocyte Esterase Urine WBC Urine Sperm Hep Bs Antibody 01/02/18 01/02/18 01/02/18 04:35 04:35 04:40 WBC 15.6 H RBC 3.27 L Hgb 9.0 L Hct 29.3 L MCHC 30.6 L Neutrophils # 14.8 H Lymphocytes # 0.3 L INR ABG pH ABG pCO2 28 L ABG pO2 185 H ABG HCO3 19 L ABG Total CO2 ABG O2 Saturation 99.8 H ABG Lactic Acid Sodium Potassium Carbon Dioxide 20 L BUN 63 H Creatinine 5.73 H* Glucose 120 H POC Glucose (mg/dL) Plasma Lactic Acid Ruben Phosphorus 5.1 H Magnesium AST ALT Alkaline Phosphatase Troponin I Total Protein Albumin Urine Protein Ur Leukocyte Esterase Urine WBC Urine Sperm Hep Bs Antibody 01/02/18 01/02/18 01/02/18 06:27 12:20 18:23 WBC RBC Hgb Hct MCHC Neutrophils # Lymphocytes # INR ABG pH ABG pCO2 ABG pO2 ABG HCO3 ABG Total CO2 ABG O2 Saturation ABG Lactic Acid Sodium Potassium Carbon Dioxide BUN Creatinine Glucose POC Glucose (mg/dL) 120 H 153 H 165 H Plasma Lactic Acid Ruben Phosphorus Magnesium AST ALT Alkaline Phosphatase Troponin I Total Protein Albumin Urine Protein Ur Leukocyte Esterase Urine WBC Urine Sperm Hep Bs Antibody Assessment and Plan Plan: Impression: 1. Acute cardiopulmonary arrest/unknown downtime 2. Acute respiratory failure on mechanical ventilation 3. End-stage renal disease on hemodialysis 4. Likely anoxic encephalopathy 5. History of atrial fibrillation 6. Diabetes mellitus Recommendations: It does appear patient had an event which caused him to fall. Most likely this was a cardiopulmonary arrest. Downtime is unclear. Patient most likely suffered anoxic encephalopathy. Patient was intubated and placed on mechanical ventilation on arrival. CT of the brain showed no acute intracranial abnormality. CT showed mild to moderate atrophy with chronic small vessel ischemic changes. CT of the cervical spine showed no acute fracture or malalignment. Repeat CT of the brain showed no intracranial process. EEG shows recurrent spikes consistent with low seizure threshold. Continue Depakote. EEG also shows encephalopathy. I feel patient to have poor prognosis. I will check a Depakote level in the a.m. Continue ICU support. I will continue to follow with you. Further recommendations to follow. Thank you for allowing me to participate in the care of your patient. Feel free to call with any questions or concerns. I performed an examination of the patient and discussed the management with the PHOTO BOOTH OPERATOR. I have reviewed the PHOTO BOOTH OPERATOR notes and agree with the findings and plan of care.
[2018-01-03] LABS: Glucose,Whole Blood 164 mg/dL (75-99)
[2018-01-03] MEDS: VALPROATE SODIUM 500 MG in SODIUM CHLORIDE 0.9% 50 ML IVPB SCH ×3 (00:05→15:37)
[2018-01-03] MEDS: HEPARIN SODIUM,PORCINE 5,000 UNIT/ML 1 ML VIAL SQ SCH ×3 (00:05→15:37)
[2018-01-03] MEDS: INSULIN ASPART 100 UNIT/ML 1 ML 10 ML VIAL SQ SCH ×4 (00:06→18:05)
[2018-01-03 05:01] LABS: ABG Base Excess -0.3 mmol/L; ABG HCO3 25 mmol/L (21-25); ABG Oxygen Saturation 98.6 % (94-97); ABG PCO2 40 mmHg (35-45); ABG PO2 133 mmHg (83-108); ABG TCO2 26 mmol/L (19-24)
[2018-01-03 05:09] LABS: Basophils % (A) 0 %; Eosinophils % (A) 0 %; HCT 27.1 % (39.0-53.0); HGB 8.5 gm/dL (13.0-17.5); Lymphocytes # (A) 0.4 k/uL (1.0-4.8); Lymphocytes % (A) 2 %; MCH 28.4 pg (25.0-35.0); MCHC 31.4 g/dL (31.0-37.0); MCV 90.4 fL (80.0-100.0); Mean Platelet Volume 8.2; Monocytes # (A) 0.7 k/uL (0-1.0); Monocytes % (A) 5 %; Neutrophils # (A) 14.1 k/uL (1.3-7.7); Neutrophils % (A) 91 %; Platelet Count 359 k/uL (150-450); RDW 14.9 % (11.5-15.5); WBC 15.4 k/uL (3.8-10.6)
[2018-01-03 05:23] LABS: Calcium 8.4 mg/dL (8.4-10.2); Magnesium 2.2 mg/dL (1.6-2.3); Phosphorus 6.2 mg/dL (2.5-4.5)
[2018-01-03 05:42] LABS: Glucose,Whole Blood 125 mg/dL (75-99)
--- NOTE | 2018-01-03 06:59 | XR ---
EXAMINATION TYPE: XR chest 1V portable DATE OF EXAM: 01/03/2018 HISTORY: Tube placement. REFERENCE: Previous study dated 01/02/2018. FINDINGS: There is a left subclavian catheter in place. Its tip is at the cavoatrial junction. The patient is NG tube is been advanced and is now well within the stomach. Additional tubing project s over the right chest. The heart is mildly enlarged. There is left basilar airspace disease. I suspect a small effusion. IMPRESSION: 1. WORSENING LEFT BASILAR AIRSPACE DISEASE. 2. LEFT-SIDED EFFUSION.
[2018-01-03] MEDS ORDERED: MIDODRINE 5 MG TAB PO SCH ×2 (07:00→12:00)
[2018-01-03] MEDS: IPRATROPIUM-ALBUTEROL 3 ML NEB INHALATION SCH ×4 (07:34→19:40)
--- NOTE | 2018-01-03 08:51 | PN ---
PROGRESS NOTE Patient is seen for followup for end-stage renal disease. Currently remains on the vent. The patient remains unresponsive. He is maintained on 2 mcg of Levophed. PHYSICAL EXAMINATION: On examination, the patient is unresponsive. He is not on any sedation. Blood pressure is 104/43, heart rate 74 per minute. He is afebrile. Examination of the heart S1, S2. Examination of the lungs bilateral breath sounds are heard. Abdomen is soft, nontender. Examination of lower extremities shows no significant edema. LAB: Show sodium 137, potassium 5.0, BUN 82, serum creatinine 6.5, phosphorus was 6.2. ASSESSMENT: 1. End-stage renal disease, on hemodialysis. Dialysis will be on hold as patient does show significant anoxic encephalopathy. He was evaluated by Neurology yesterday and currently awaiting final decision from the family regarding terminal wean. 2. Status post cardiac arrest. 3. Respiratory failure, currently on mechanical ventilation. 4. Chronic kidney disease mineral bone disorder maintained on PhosLo. PLAN: We will hold off on hemodialysis today until family meeting with Neurology regarding severe anoxic encephalopathy and possible terminal wean. MMODL / IJN: [id number] /
[2018-01-03] MEDS: CALCIUM ACETATE 667 MG CAP PO SCH ×4 (09:07→21:32)
[2018-01-03] MEDS: SODIUM CHLORIDE 0.9% 1,000 ML IV SCH ×2 (09:09→21:33)
[2018-01-03] MEDS: ASPIRIN 81 MG PO SCH (09:10)
[2018-01-03] MEDS: GABAPENTIN 100 MG CAP PO SCH ×2 (09:10→21:32)
[2018-01-03] MEDS: CHLORHEXIDINE GLUCONATE 15 ML CUP MUCOUS MEM SCH ×2 (09:10→21:32)
[2018-01-03] MEDS: CLOPIDOGREL 75 MG TAB PO SCH (09:10)
[2018-01-03] MEDS: PANTOPRAZOLE 40 MG/10 ML VIAL IVP SCH (09:11)
[2018-01-03] MEDS: PIPERACILLIN-TAZOBACTAM 3.375 GM in DEXTROSE/WATER 1 50ML.BAG IVPB SCH ×2 (09:20→21:32)
--- NOTE | 2018-01-03 09:43 | P.PN ---
Subjective Progress Note Date: 01/03/18 72-year-old male patient, known history of end-stage renal disease on hemodialysis through a AV fistula in the left upper extremity, in addition to history of chronic atrial fibrillation and the patient has undergone a watchman' s procedure, congestion heart failure/diastolic dysfunction and hyperlipidemia, presented to the emergency department with a cardiac arrest. The patient was at home with his significant other. He was using a walker and he was trying to go down the steps. He called his significant other and he told her that he was not feeling well. Following that the significant other heard a noise and apparently the patient got colds at the edge of the carpet while utilizing the walker and he fell on the steps and he was found to be on the top 3 steps on his home staircase. He was still conscious. The significant other came in for help however she was unable to move the patient. By that time she decided to call EMS. Sometime between the phone call and EMS arrival the patient lost consciousness. The exact duration of the loss of consciousness and cardiac pulmonary arrest is not known. At the time of arrival, the patient was found to be in asystole. CPR was initiated and the patient was given a dose of epinephrine. The patient was then brought into the emergency department and upon arrival he was still receiving CPR. He arrived to the ED and another 14 minutes of resuscitation was done during which the patient received 3 additional dose of epinephrine for a PEA rhythm. The patient was intubated. After 40 minutes of resuscitation the patient had return of circulation and blood pressure was obtained. Immediately triple-lumen catheter was inserted and the patient was started on pressors and currently the patient on 8 mics of norepinephrine infusion. The patient is in atrial fibrillation rhythm. CAT scan of the brain was done and a CAT scan of the C-spine showed no abnormalities. No evidence of any intracranial hemorrhage or any acute ischemic changes or mass effect or any fluid collection. The patient also had a CAT scan of the chest abdomen and pelvis which showed diffuse anasarca and ascites in addition to a cirrhotic morphology of the liver. There was also a hydropic gallbladder. Soft tissue nodularity along the right paramedial anterior peritoneal lining that raised the suspicion for any focal hemorrhage in the peritoneal space. There was also concern for a 4 cm intramuscular hemorrhage or an underlying mass in the left iliac area/muscle. Another indeterminate 2.3 cm round soft tissue lesion in the posterior left pararenal space of an unknown significance. I evaluated this patient in the emergency department. The patient was completely unresponsive. He was comatose. He was not withdrawing to painful stimulation. He was in a mechanical ventilator on assist control mode of ventilation. The patient had a Duran catheter with minimal amount of urine output thus far. In general he does not produce significant amount of urine output. The patient had no leukocytosis. Hemoglobin was at 9.9. The patient' s potassium level at time of admission was 5.6. The patient had a BUN of 19 and a creatinine of 7.9. His initial lactic acid level was at 9.1. LFT showed a bilirubin of 0.7 with a AST of 61 and ALT of 19. Post intubation blood gases showed a pH of 7.3 with a pCO2 of 34 and pO2 of more than 400 and this was done and FiO2 of 100%. The BNP level was 50,000+ and the urinalysis showed 33 WBCs. First set of troponin was at 0.035. EKG showed a atrial fibrillation rhythm with a left exudative deviation and right bundle branch block pattern. He was receiving external warming through a bear hugger for a temperature of 95.0F. No seizure activity is noted. On 01/02/2018 the patient is being seen in follow-up in the intensive care unit. 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 He is on no sedation and he remains completely comatose and unresponsive. He does not respond to any painful stimulation throughout his body. Overnight he developed some myoclonic jerks/ myoclonic seizures and for that reason the patient was started on Depakote per neurology's recommendation. EEG is to follow today. A repeat CAT scan of the brain is to follow today. Meanwhile, the patient has a positive corneal reflex , positive gag reflex, positive cough reflex, and possible breathing reflex as he is able to initiate and should've his own breasts. He does have an upward gaze looking to the left and he has a conjugate gaze without any nystagmus. He does occasionally blinking of the eyes. The patient is currently normothermic. The ventilator is still in the same setting which includes an assist-control of 12 with a tidal volume of 500 with an FiO2 of 50% and a PEEP of 5. The patient has a pH of 7.44 with a pCO2 of 28 and pO2 185. Chest x-ray shows some limited infiltration of the left lung base otherwise ET tube is in a good location. The patient on empiric antibiotic coverage with IV Zosyn. The patient underwent hemodialysis yesterday without ultrafiltration. His electrolytes show no significant abnormalities. Potassium level is down to 4.8. Creatinine is down to 5.7. Sodium level is at 138. Phosphorus level is at 5.1. The patient is currently off pressors and hemodynamically stable. His receiving normal saline at rate of 75 mL an hour. The patient also started developing some liquidy bowel movements/diarrhea and currently has an FMS system attached and the total amount of stool collected was 200 mL over the past shift. On 01/03/2018 and seeing this patient for a follow-up. 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 Is completely unresponsive. He is having on and off myoclonic jerks. He has been on no sedation. Jerking rapid activity seen in the right upper extremity consistent with myoclonic seizures. The patient does not follow commands. He does not withdraw to deep painful stimulation. At times he has decerebrate posture. He is currently on valproic acid infusion per neurology. He remains intubated on a mechanical ventilator. Assist-control mode of ventilation. Tidal volume is 500 12 and FiO2 of 40% with a PEEP of 5. The blood gases from today showed a pH of 7.4 with a pCO2 of 40 and pO2 133. White cell count is at 15.4. Rest of the electrodes are all within normal limits. Patient has dialysis-dependent renal failure the patient's BUN is at 82 with a creatinine of 6.5. Chest x-ray showing adequate expansion of both lungs. It ET tube is in a good location. The patient has a left basilar pulmonary infiltrate consistent with some early pneumonia and the patient is currently on IV Zosyn. The patient is also on norepinephrine infusion at 1 g per KG pigmented minutes for blood pressure support. Urine output is low and the patient is oliguric at this stage consistent with his renal failure. He is receiving IV fluids with 0.9 saline at the rate of 75 mL an hour. EEG was performed and the results are still pending for now. Neurologist on the case. Objective - Vital Signs Vital signs: Vital Signs Temp 100.8 F H 01/03/18 04:00 Pulse 82 08/04/18 07:44 Resp 18 01/03/18 07:00 BP 122/52 01/02/18 08:30 Pulse Ox 100 01/03/18 07:00 Intake & Output 01/02/18 01/03/18 01/03/18 18:59 06:59 18:59 Intake Total 1125 875 90.655 Output Total 0 10 15 Balance 1125 865 75.655 Weight 90.5 kg Intake: IV 1125 875 75 Piperacillin-Tazobactam 3 50 .375 gm In Dextrose/Water 1 50ml.bag @ 12.5 mls/hr IVPB Q12HR GARY Rx#: [id number] Sodium Chloride 0.9% 1, 975 825 75 000 ml @ 75 mls/hr IV . [id number] GARY Rx#:[id number] Valproate Sodium 500 mg 100 50 In Sodium Chloride 0.9% 50 ml @ 50 mls/hr IVPB Q8HR GARY Rx#:[id number] Intake, IV Titration 0 15.655 Amount Norepinephrine 16 mg In 0 15.655 Dextrose 5% in Water 250 ml @ Titrate IV .Q0M GARY Rx#:[id number] Output: Urine 0 10 15 Other: Voiding Method Indwelling Catheter Indwelling Catheter ABP, PAP, CO, CI - Last Documented Arterial Blood Pressure 104/43 - Exam Gen. appearance the patient is currently unresponsive, comatose, calm and comfortable on mechanical ventilator. Orogastric and orotracheal tube are both in place. No signs of any head trauma Head exam was generally normal. There was no scleral icterus or corneal arcus. Mucous membranes were moist. Neck was supple and without jugular venous distension, thyromegaly, or carotid bruits. Carotids were easily palpable bilaterally. There was no adenopathy. Lungs were clear to auscultation and percussion, and with normal diaphragmatic excursion. No wheezes or rales were noted. Heart sounds are irregular S1-S2 and there is no significant murmurs appreciated. Sternum stable clean and intact. Abdominal exam revealed normal bowel sounds. The abdomen was soft, non-tender, and without masses, organomegaly, or appreciable enlargement of the abdominal aorta. The patient has evidence of fluid wave and shifting dullness consistent with an ascites. No direct tenderness or rebound tensile guarding. Extremities revealed diminished pulses bilaterally and there is no cyanosis or clubbing at this point. The patient has a left upper extremity AV fistula. Examination of the skin revealed no evidence of significant rashes, suspicious appearing nevi or other concerning lesions. Neurologically, the patient was developing occasional myoclonic jerks that improved with utilization of Depakote. He remains completely comatose. Unresponsive to any painful stimulation. the patient's pupils around 2-3 mm in size and there are symmetrical and sluggishly reactive to light. The gaze is upwards to the left. No nystagmus no facial asymmetry. He has a positive cough and a gag reflex. Does not withdraw to any of the painful stimulation both in upper and lower extremities. Cannot elicit any Babinski. No clonus. Reflexes are +1 and they're symmetrical all 4 extremities. The patient is performing occasional decerebrate posture. Occasional myoclonic jerks are also seen in the right upper extremity. - Labs CBC & Chem 7: 01/03/18 04:30 01/03/18 04:30 Labs: Abnormal Lab Results - Last 24 Hours (Table) 01/01/18 01/02/18 01/02/18 Range/Units 21:20 12:20 18:23 WBC (3.8-10.6) k/uL RBC (4.30-5.90) m/uL Hgb (13.0-17.5) gm/dL Hct (39.0-53.0) % Neutrophils # (1.3-7.7) k/uL Lymphocytes # (1.0-4.8) k/uL ABG pO2 (83-108) mmHg ABG Total CO2 (19-24) mmol/L ABG O2 Saturation (94-97) % BUN (9-20) mg/dL Creatinine (0.66-1.25) mg/dL Glucose (74-99) mg/dL POC Glucose (mg/dL) 153 H 165 H (75-99) mg/dL Phosphorus (2.5-4.5) mg/dL Hep Bs Antibody Reactive H (Non-Reactive) 01/02/18 01/03/18 01/03/18 Range/Units 23:58 04:30 04:30 WBC 15.4 H (3.8-10.6) k/uL RBC 3.00 L (4.30-5.90) m/uL Hgb 8.5 L (13.0-17.5) gm/dL Hct 27.1 L (39.0-53.0) % Neutrophils # 14.1 H (1.3-7.7) k/uL Lymphocytes # 0.4 L (1.0-4.8) k/uL ABG pO2 (83-108) mmHg ABG Total CO2 (19-24) mmol/L ABG O2 Saturation (94-97) % BUN 82 H* (9-20) mg/dL Creatinine 6.50 H* (0.66-1.25) mg/dL Glucose 127 H (74-99) mg/dL POC Glucose (mg/dL) 164 H (75-99) mg/dL Phosphorus 6.2 H (2.5-4.5) mg/dL Hep Bs Antibody (Non-Reactive) 01/03/18 01/03/18 Range/Units 04:52 05:40 WBC (3.8-10.6) k/uL RBC (4.30-5.90) m/uL Hgb (13.0-17.5) gm/dL Hct (39.0-53.0) % Neutrophils # (1.3-7.7) k/uL Lymphocytes # (1.0-4.8) k/uL ABG pO2 133 H (83-108) mmHg ABG Total CO2 26 H (19-24) mmol/L ABG O2 Saturation 98.6 H (94-97) % BUN (9-20) mg/dL Creatinine (0.66-1.25) mg/dL Glucose (74-99) mg/dL POC Glucose (mg/dL) 125 H (75-99) mg/dL Phosphorus (2.5-4.5) mg/dL Hep Bs Antibody (Non-Reactive) Microbiology - Last 24 Hours (Table) 01/01/18 11:00 Urine Culture - Final Urine,Catheterized 01/01/18 10:44 Blood Culture - Preliminary Blood No Growth after 24 hours Assessment and Plan Plan: Assessment 1 acute cardiac pulmonary arrest. The patient was in asystole initially and following that he went into a PEA and the down time in between the time that the patient's parents home and emergency department was probably in the order of 20+ minutes. The patient had regained circulation and blood pressure following resuscitation here in the emergency department. Currently is on 8 g of norepinephrine infusion for blood pressure control. Potassium level is at 5.6 and the patient's cardiac rhythm is a fibrillation with a controlled rate. Monitor the patient is intubated on a mechanical ventilator and is unresponsive in a comatose condition while on no sedation. Suspect an underlying component of hypoxic encephalopathy. On 01/02/2018, the patient is post acute cardiac arrest. The patient has signs of severe hypoxic encephalopathy and he remains comatose. He is not completely brain that as the patient has brainstem reflexes. He does not respond to any painful stimulation. He did develop some myoclonic jerks for which she is on Depakote for now. He does have positive corneal reflex and lites reflex and breathing reflex and the gag reflex. The patient is currently on Depakote. EEG is to follow. Repeat CAT scan of the brain is to follow. Hemodynamically doing better on no pressors. He underwent hemodialysis yesterday. He is normothermic for now. On 01/03/2018, the patient is post acute cardiac arrest. He has signs of severe anoxic encephalopathy. He has occasional decerebrate posterior. He is having some occasional myoclonic jerks in the right upper extremity and he remains on Depakote. EEG was done and results are still pending for now. Neurologist on the case. Completely comatose. Does not respond to any deep painful stimulation. Repeat CAT scan of the brain shows diffuse age-related cerebral atrophy without any other acute intracranial process or hemorrhage. 2 acute respiratory failure secondary to cardiac pulmonary arrest and the patient is currently intubated on a mechanical ventilator. 3 small bilateral pleural effusions. May be some limited residual infiltration of the left lung base. Rule out underlying pneumonia and the patient is currently on IV Zosyn 4 End stage renal disease on hemodialysis through an AV fistula in the left upper extremity. The patient underwent hemodialysis without any ultrafiltration. 5 diffuse anasarca with large ascites and features of cirrhotic lever based on a CAT scan of the abdomen 6 2.3 cm soft brown tissue lesion in the posterior left pararenal space, etiology is not clear 7 history of hypertension, currently running a lower blood pressure and the patient is on norepinephrine infusion at 1 g per KG pigmented. 8 history of congestion heart failure diastolic dysfunction 9 chronic atrial fibrillation and the patient has a watchman's procedure and currently on no anticoagulation 10 gait dysfunction and history of recurrent falls 11 diabetes mellitus with possibly component of diabetic neuropathy 12 hyperlipidemia 13 hyperuricemia/gout. 14 lactic acidosis secondary to cardiac pulmonary arrest. The lactic acid improved and is currently down to 2.3 from a baseline of 9.1. 15, diarrhea, loose with negative for C. diff evaluation. Rule out underlying ischemic colitis post cardiac arrest. Plan We'll continue vent support. Prognosis poor. The patient has signs of severe anoxic encephalopathy. The patient has not shown any signs of neurologic recovery over the past 24 hours. The patient is performing decerebrate posture. The patient has some myoclonic jerks in the right upper extremity. He is on Depakote. EEG is pending. In summary, these are signs of severe anoxic encephalopathy and this has been expected to the patient at length. Repeat CAT scan of the brain showed no acute abnormalities and the findings are essentially chronic changes and cerebral atrophy. The patient is deeply comatose and the patient does not follow any commands no response to any deep painful stimulation. This has been discussed with the family. May consider comfort care measures next 24-48 hours. Would like to have further discussion with the kids with her in [place] and there may not come in for this matter. In any rate, we'll continue supportive care. Continue Depakote. Continue IV fluids. Pressors as needed to maintain a mean arterial pressure above 65. Continued IV Zosyn. We'll continue to follow and consider comfort care measures with the next 24-48 hours. Critically care evaluation, 35 minutes. Time with Patient: Greater than 30
[2018-01-03 11:42] LABS: Glucose,Whole Blood 100 mg/dL (75-99)
--- NOTE | 2018-01-03 13:53 | P.PN ---
Subjective Progress Note Date: 01/03/18 This is a pleasant 72-year-old gentleman patient of Dr. Hope new to the office , Dr. Clarke, Dr. 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 Patient was walking up the steps with his walker, per patient got entangled with his walker, and fell down half way to this 16 step stairs, patient was noted to go in and out of consciousness, was found to be cold and clammy, and diaphoretic. Patient was assisted by the till the bottom of the stairs until she called 911, EMS found him with with asystole cardiac arrest and CPR was performed in the field for approximately 10 minutes prior to his transfer to the [facility], he received epinephrine and atropine, did not require cardioversion, currently now in the emergency room, nonresponsive to a full stimuli, mechanically vented anticipating his admission to ICU unless other circumstances prevents this admission here. I was notified by Dr. Martinez that the patient was in the emergency room, I discuss it with ER physician Dr. Gutiérrez, imaging studies are still pending, patient might be transferred to another facility should there be any intracranial hemorrhage noted. Awaiting final imaging and laboratory studies, prior to ICU transfer. Patient currently is in the emergency room when evaluated, intubated mechanically, As per the , patient is on Plavix and aspirin, and last dose of Plavix was 12/31/2017 for the watchman procedure, he was on Coumadin 45 days then maintained on Plavix aspirin for 4 months as per protocol for the watchman procedure. He was last admitted at [facility] for aspiration pneumonia October 2017, was last seen by Dr. Carolina 11/07/2017, no medication changes were made, last A1c was 6.0. He also had an EGD by Dr. Bonner, approximately 2 weeks ago secondary to liver cirrhosis, no liver biopsy performed, patient has ascites. In the emergency room, CT of the brain shows no evidence of acute intracranial hemorrhage or acute ischemic change or mass effect mild ventriculomegaly noted secondary to central cerebral atrophy, CT of the chest abdomen pelvis, showed diffuse anasarca, borderline cardiomegaly without pericardial effusion, 2.5 cm mixed density along the expected course of the proximal circumflex, ascending aorta 3.5 cm without dissection, small left trace right pleural effusion, atelectasis, also by granulomas, scattered nonenlarged mediastinal lymph nodes, adrenals and spleen and crisscrossed normal, hydropic gallbladder 4.7 cm, nodular liver, no focal liver lesion, 2.3 nodule left pararenal space bilateral kidneys are atrophic, exophytic 1.4 cm lesion lateral left kidney too small to characterize, possible cyst increased density expanding the left iliac 4 cm possibly intermuscular hemorrhage or underlying mass, soft tissue sandra laboratory data along the right paramedian anterior peritoneal lining could flex small area of focal hemorrhage in the per 20or soft tissue deposit from metastatic disease, indeterminate 2.3 cm round soft tissue lesion posterior left pararenal space cannot exclude neoplastic keep urology, short-term interval follow-up recommended, 2.5 cm partially calcified lesion proximal circumflex artery suspicious for coronary artery aneurysm. Symptoms prior to admission included diarrhea for 1 week duration, however he also saw Dr. Bonner for chronic diarrhea 3 years celiac panel was requested along with hepatitis C AFP serum plasmin level SANG. denies fever no chills no abdominal pain, patient is maintained on hemodialysis Saturdays, but he completed Augmentin for the aspiration pneumonia that was initially prescribed 11/01/2017, and prior to that he received clindamycin for 5 days 01/02:Patient remains in the intensive care unit. He is currently off vasopressors. There is concern for anoxic encephalopathy. EEG is to be done. CT of the brain done on January 02 shows no acute findings. Vision has been started on Valproate IV piggyback by Dr. Garcia. Vision is currently on antibiotics in form of a set her myosin and Zosyn. Equal management system was placed. Echocardiogram revealed EF of 50-55% with mild concentric left ventricular hypertrophy, left atrium moderately dilated, mild aortic valve sclerosis, mild mitral regurgitation, mild tricuspid regurgitation, no pulmonary hypertension. Repeat chest x-ray shows NG tube withdrawn and low tip was located in the gastroesophageal junction region. No acute pulmonary process. Family members are at the bedside and updated. 01/03 patient examined bedside. He is currently on norepinephrine. He is unable to respond to pain or questions. Pupils are responsive. Patient continues to have myoclonic jerk in the right upper extremity he does seem to have a gag reflux. Overall prognosis appears to be poor. Neurology evaluated the patient. EEG with low seizure threshold but no active seizures seen. Repeat CT with no acute intracranial processes. Patient may benefit from CT and chewing of the head to look for anoxic brain injury. Family discussion need to be initiated for withdrawal of care. Patient remains on hemodialysis Objective - Vital Signs Vital signs: Vital Signs Temp 100.8 F H 01/03/18 04:00 Pulse 82 01/03/18 07:44 Resp 18 01/03/18 07:00 BP 122/52 01/02/18 08:30 Pulse Ox 100 01/03/18 07:00 Intake & Output 01/02/18 01/03/18 01/03/18 18:59 06:59 18:59 Intake Total 1125 875 94.582 Output Total 0 10 15 Balance 1125 865 79.582 Weight 90.5 kg Intake: IV 1125 875 75 Piperacillin-Tazobactam 3 50 .375 gm In Dextrose/Water 1 50ml.bag @ 12.5 mls/hr IVPB Q12HR GARY Rx#: [id number] Sodium Chloride 0.9% 1, 975 825 75 000 ml @ 75 mls/hr IV . [id number] GARY Rx#:[id number] Valproate Sodium 500 mg 100 50 In Sodium Chloride 0.9% 50 ml @ 50 mls/hr IVPB Q8HR GARY Rx#:[id number] Intake, IV Titration 0 19.582 Amount Norepinephrine 16 mg In 0 19.582 Dextrose 5% in Water 250 ml @ Titrate IV .Q0M GARY Rx#:[id number] Output: Urine 0 10 15 Other: Voiding Method Indwelling Catheter Indwelling Catheter ABP, PAP, CO, CI - Last Documented Arterial Blood Pressure 104/43 - Exam - Constitutional General appearance: Present: average body habitus, no acute distress. Nonresponsive to pain Absent: severe distress - EENT Eyes: Absent: scleral icterus ENT: Present: other (ET and oral gastric tube in place) positive gag reflex - Neck Neck: Present: normal ROM. Absent: rigidity, thyromegaly - Respiratory Respiratory: bilateral: CTA, negative: rales, rhonchi, wheezing - Cardiovascular Rhythm: irregularly irregular Heart sounds: normal: S1, S2 Abnormal Heart Sounds: Absent: systolic murmur, diastolic murmur - Gastrointestinal General gastrointestinal: Present: normal bowel sounds. Absent: hepatomegaly, tenderness - Neurologic Neurologic: Absent: CNII-XII intact - Musculoskeletal Musculoskeletal: Absent: gait normal, generalized weakness, strength equal bilaterally, right sided weakness, left sided weakness might positive for myoclonic jerks on the right upper extremity with decerebrate positioning - Psychiatric Psychiatric: Absent: A&O x's 3, appropriate affect, intact judgment & insight - Labs CBC & Chem 7: 01/03/18 04:30 01/03/18 04:30 Labs: Abnormal Lab Results - Last 24 Hours (Table) 01/02/18 01/02/18 01/03/18 Range/Units 18:23 23:58 04:30 WBC 15.4 H (3.8-10.6) k/uL RBC 3.00 L (4.30-5.90) m/uL Hgb 8.5 L (13.0-17.5) gm/dL Hct 27.1 L (39.0-53.0) % Neutrophils # 14.1 H (1.3-7.7) k/uL Lymphocytes # 0.4 L (1.0-4.8) k/uL ABG pO2 (83-108) mmHg ABG Total CO2 (19-24) mmol/L ABG O2 Saturation (94-97) % BUN (9-20) mg/dL Creatinine (0.66-1.25) mg/dL Glucose (74-99) mg/dL POC Glucose (mg/dL) 165 H 164 H (75-99) mg/dL Phosphorus (2.5-4.5) mg/dL 01/03/18 01/03/18 01/03/18 Range/Units 04:30 04:52 05:40 WBC (3.8-10.6) k/uL RBC (4.30-5.90) m/uL Hgb (13.0-17.5) gm/dL Hct (39.0-53.0) % Neutrophils # (1.3-7.7) k/uL Lymphocytes # (1.0-4.8) k/uL ABG pO2 133 H (83-108) mmHg ABG Total CO2 26 H (19-24) mmol/L ABG O2 Saturation 98.6 H (94-97) % BUN 82 H* (9-20) mg/dL Creatinine 6.50 H* (0.66-1.25) mg/dL Glucose 127 H (74-99) mg/dL POC Glucose (mg/dL) 125 H (75-99) mg/dL Phosphorus 6.2 H (2.5-4.5) mg/dL 01/03/18 Range/Units 11:42 WBC (3.8-10.6) k/uL RBC (4.30-5.90) m/uL Hgb (13.0-17.5) gm/dL Hct (39.0-53.0) % Neutrophils # (1.3-7.7) k/uL Lymphocytes # (1.0-4.8) k/uL ABG pO2 (83-108) mmHg ABG Total CO2 (19-24) mmol/L ABG O2 Saturation (94-97) % BUN (9-20) mg/dL Creatinine (0.66-1.25) mg/dL Glucose (74-99) mg/dL POC Glucose (mg/dL) 100 H (75-99) mg/dL Phosphorus (2.5-4.5) mg/dL Microbiology - Last 24 Hours (Table) 01/01/18 10:44 Blood Culture - Preliminary Blood No Growth after 48 hours 01/01/18 15:40 Gram Stain - Final Sputum Sputum Culture - Final 01/01/18 11:00 Urine Culture - Final Urine,Catheterized Assessment and Plan Plan: 1. Syncope with Cardiac arrest, malignant arrhythmias need to be ruled out, known history of atrial fibrillation, status post watchman procedure, patient cannot be anticoagulated secondary to epistaxis, patient currently is mechanically and related secondary to acute respiratory failure Dr. Martinez and Dr. Lechuga consulted, other causes of the cardiac arrest could be pulmonary emboli rather than acute neurologic events such as seizure or CVA. follow-up CAT scan next 24-48 hours NEGATIVE , EEG of the brai NEGATIVE , echocardiogram with EF 50 -55 %, and also will be evaluated for obstructive coronary artery disease,. 2. Transient hypotension secondary to cardiovascular collapse, pressor agents has been provided sepsis cannot be ruled out, acute UTI with suspected hospital- acquired pneumonia and left infiltrate, along with adrenal sufficiency, cortisol to be obtained, might need hydrocortisone if blood pressure remains low. Patient is on admitted during. 3. 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 Dukes 4. Acute hypoxemic respiratory failure secondary to cardiac arrest and suspected hospital-acquired pneumonia, patient currently is mechanically ventilated Dr. Lechuga following closely 5. Atrial fibrillation, chronic status post watchman procedure for occlusion of left atrial appendage July 2017, not requiring any long-term anticoagulation, on aspirin. Plavix should have been completed as of 2017 cardiology following 6. Liver cirrhosis, ascites this was recently investigated by Dr. Bonner at [facility] November 2017 with elevated alkaline phosphatase level, elevated serial plasmin level, elevated alpha-1 antitrypsin, and elevated ferritin levels at 2200, other test that was negative include SANG, hepatitis panel was negative, for both B, and C. No liver biopsy performed 7. Acute on Chronic diarrhea with negative celiac reflex panel, was seen by Dr. Gallardo recently, however with recent antibiotic exposure Augmentin and clindamycin 6 weeks prior to admission, C. diff toxin would be evaluated 8. Left lower lobe infiltrate, gram-negative pneumonia along with aspiration pneumonia is suspected, history of aspiration pneumonia last October 2017, with his hospitalization, continue Zosyn. 9. Diabetes mellitus with last hemoglobin A1c of 5.3, history of hypoglycemia, with his current syncopal events, hypoglycemic events and complications the to be monitored 10. Head concussion with falling from the stairs, CAT scan of the brain failed to reveal any acute bleed or ischemic infarcts, cervical CT failed to reveal any fractures patient is on aspirin for anticoagulation, recently completed Plavix as of 12/31/2017, patient would repeat a CAT scan in the brain next 24 hours 11. Generalized anasarca. Once stabilized, IV diuretics 12. Moderate protein calorie malnutrition with mild to moderate protein deficiency, nutritional requirements will be reevaluated next 24 hours 13. Mild troponin elevation possibly related to cardiac arrest, however secondary ischemic event cannot be ruled out cardiology following, no immediate need for cardiac cath was anticipated by cardiology, continue for close surveillance 14. Acute urinary tract infection, so seen to be initiated urine cultures and blood cultures have been sent as hospital-acquired pneumonia is suspected 15. Acute anoxic encephalopathy. Neurology is on. CAT scan brain showed no acute findings. Patient is on Valproate IVPB 500mg every 12 hours. DVT prophylaxis, RALPH montes, patient's high risk with known history of liposarcoma , as well as debility, however with recent head concussion going to delay with chemical anticoagulation till after the second CAT scan will be done 14. GI prophylaxis Prognosis poor CODE STATUS full Discharge plan: Patient is considered for comfort care. Goal of care discussion initiated iwth family
--- NOTE | 2018-01-03 16:26 | P.PN ---
Subjective Progress Note Date: 01/03/18 Principal diagnosis: Patient is a 72-year-old male who is being followed by the neurology service for unresponsiveness status post cardiac arrest. Patient has a history of chronic atrial fibrillation, end-stage renal disease on hemodialysis, congestive heart failure, and hyperlipidemia. Patient was trying to use a walker to go up the stairs at home. states he got tripped up in his walker and fell down a few stairs. tried to guide him down the steps and found that he was unable to move. called the EMS. When EMS arrived at the patient he was unconscious. Amount of time patient had loss of consciousness and cardiopulmonary arrest is not known. Patient was brought to [facility] for further evaluation. Patient was found to be in asystole on arrival. CPR was initiated and patient was given epinephrine. Patient was intubated and placed on mechanical ventilation. Patient was resuscitated for approximately 40 minutes before return of circulation. Computed tomography scan of the brain was done on arrival which showed no evidence of any intracranial hemorrhage. Computed tomography scan of the cervical spine was done which showed no abnormalities. Patient remains intubated on mechanical ventilation in the intensive care unit setting. Patient is not responsive to painful stimuli. Staff informs me patient occasionally breathes over the vent and has a mild cough and gag reflex. Patient was showing some muscle jerking and he was started on Depakote. EEG did show occasional sharp spikes consistent with reduced seizure threshold. EEG also showed moderate to severe encephalopathy. This is consistent with a poor prognosis. At the time of my evaluation, patient is undergoing hemodialysis and appears to be in no acute distress. Objective - Vital Signs Vital signs: Vital Signs Temp 100.8 F H 01/03/18 04:00 Pulse 98 01/03/18 15:30 Resp 18 01/03/18 07:00 BP 122/52 01/02/18 08:30 Pulse Ox 100 01/03/18 07:00 Intake & Output 01/02/18 01/03/18 01/03/18 18:59 06:59 18:59 Intake Total 1125 875 97.605 Output Total 0 10 15 Balance 1125 865 82.605 Weight 90.5 kg Intake: IV 1125 875 75 Piperacillin-Tazobactam 3 50 .375 gm In Dextrose/Water 1 50ml.bag @ 12.5 mls/hr IVPB Q12HR GARY Rx#: [id number] Sodium Chloride 0.9% 1, 975 825 75 000 ml @ 75 mls/hr IV . [id number] GARY Rx#:[id number] Valproate Sodium 500 mg 100 50 In Sodium Chloride 0.9% 50 ml @ 50 mls/hr IVPB Q8HR GARY Rx#:[id number] Intake, IV Titration 0 22.605 Amount Norepinephrine 16 mg In 0 22.605 Dextrose 5% in Water 250 ml @ Titrate IV .Q0M GARY Rx#:[id number] Output: Urine 0 10 15 Other: Voiding Method Indwelling Catheter Indwelling Catheter ABP, PAP, CO, CI - Last Documented Arterial Blood Pressure 104/43 - Exam PHYSICAL EXAM: GENERAL APPEARANCE: Patient is a male who is intubated on mechanical ventilation HEENT: Normocephalic, atraumatic, no obvious facial asymmetry is seen. CARDIOVASCULAR: Irregular rate and rhythm. ABDOMEN: Nontender, nondistended. EXTREMITIES: Show edema but no clubbing. NEUROLOGICAL EXAM: A meaningful neurological exam could not be performed due to patient unresponsiveness. Patient does not withdraw to painful stimuli. Patient has a conjugate gaze with an upward and to the left position. Patient has a mild gag reflex. Patient occasionally breathes above the ventilator. Patient developed some myoclonic jerking movements and Depakote was started. No jace seizure activity noted. - Labs CBC & Chem 7: 01/03/18 04:30 01/03/18 04:30 Labs: Abnormal Lab Results - Last 24 Hours (Table) 01/02/18 01/02/18 01/03/18 Range/Units 18:23 23:58 04:30 WBC 15.4 H (3.8-10.6) k/uL RBC 3.00 L (4.30-5.90) m/uL Hgb 8.5 L (13.0-17.5) gm/dL Hct 27.1 L (39.0-53.0) % Neutrophils # 14.1 H (1.3-7.7) k/uL Lymphocytes # 0.4 L (1.0-4.8) k/uL ABG pO2 (83-108) mmHg ABG Total CO2 (19-24) mmol/L ABG O2 Saturation (94-97) % BUN (9-20) mg/dL Creatinine (0.66-1.25) mg/dL Glucose (74-99) mg/dL POC Glucose (mg/dL) 165 H 164 H (75-99) mg/dL Phosphorus (2.5-4.5) mg/dL 01/03/18 01/03/18 01/03/18 Range/Units 04:30 04:52 05:40 WBC (3.8-10.6) k/uL RBC (4.30-5.90) m/uL Hgb (13.0-17.5) gm/dL Hct (39.0-53.0) % Neutrophils # (1.3-7.7) k/uL Lymphocytes # (1.0-4.8) k/uL ABG pO2 133 H (83-108) mmHg ABG Total CO2 26 H (19-24) mmol/L ABG O2 Saturation 98.6 H (94-97) % BUN 82 H* (9-20) mg/dL Creatinine 6.50 H* (0.66-1.25) mg/dL Glucose 127 H (74-99) mg/dL POC Glucose (mg/dL) 125 H (75-99) mg/dL Phosphorus 6.2 H (2.5-4.5) mg/dL 01/03/18 Range/Units 11:42 WBC (3.8-10.6) k/uL RBC (4.30-5.90) m/uL Hgb (13.0-17.5) gm/dL Hct (39.0-53.0) % Neutrophils # (1.3-7.7) k/uL Lymphocytes # (1.0-4.8) k/uL ABG pO2 (83-108) mmHg ABG Total CO2 (19-24) mmol/L ABG O2 Saturation (94-97) % BUN (9-20) mg/dL Creatinine (0.66-1.25) mg/dL Glucose (74-99) mg/dL POC Glucose (mg/dL) 100 H (75-99) mg/dL Phosphorus (2.5-4.5) mg/dL Microbiology - Last 24 Hours (Table) 01/01/18 10:44 Blood Culture - Preliminary Blood No Growth after 48 hours 01/01/18 15:40 Gram Stain - Final Sputum Sputum Culture - Final 01/01/18 11:00 Urine Culture - Final Urine,Catheterized Assessment and Plan Plan: Impression: 1. Acute cardiopulmonary arrest/unknown downtime 2. Acute respiratory failure on mechanical ventilation 3. End-stage renal disease on hemodialysis 4. Likely anoxic encephalopathy 5. History of atrial fibrillation 6. Diabetes mellitus 7. Myoclonic jerking Recommendations: It does appear patient had an event which is most likely cardiopulmonary arrest. Downtime is unclear. Patient most likely suffered anoxic encephalopathy. Patient was intubated and placed on mechanical ventilation on arrival. CT of the brain showed no acute intracranial abnormality. CT showed mild to moderate atrophy with chronic small vessel ischemic changes. CT of the cervical spine showed no acute fracture or malalignment. Repeat CT of the brain showed no intracranial process. Depakote level was 24.2 yesterday. I will increase Depakote to 1000 mg twice a day. I will have another Depakote level drawn in the a.m. EEG showed recurrent spikes consistent with low seizure threshold. EEG also showed moderate to severe encephalopathy. This is consistent with a poor prognosis. Due to EEG results and increased twitching, I will increase Depakote as mentioned above. I spoke with the family at length regarding prognosis. I explained to them the chance of a meaningful neurological recovery was slim. Continue current ICU support. Friday morning another neurological exam will be performed as patient will have been here 72 hours. I will continue to follow with you. Further recommendations to follow. I performed an examination of the patient and discussed the management with the [facility]. I have reviewed the [facility] [facility] notes and agree with the findings and plan of care.
[2018-01-03] MEDS: MIDODRINE 5 MG TAB PO SCH ×2 (17:59→18:08)
[2018-01-03 18:06] LABS: Glucose,Whole Blood 105 mg/dL (75-99)
[2018-01-03] MEDS: ARTIFICIAL TEARS-HYPROMELLOSE DROPS 15 ML BTL BOTH EYES PRN (18:06)
--- NOTE | 2018-01-03 20:30 | PN ---
PROGRESS NOTE Daniel Reilly. MMSKYLAL / IJN: [id number] /
--- NOTE | 2018-01-03 20:42 | PN ---
PROGRESS NOTE This patient's medical records reviewed and patient was examined at bedside. The patient is status post cardiac arrest. Currently he is on Levophed drip. The patient is not responsive to any further painful stimulus. The patient's temperature is 100.8, blood pressure is 122/52 mmHg. First and second heart sounds were normal. Lungs examination: Revealed bilateral air entry. The patient's hemoglobin is 8.5. FINAL IMPRESSION: This patient is status post cardiac arrest. Patient has a severe anoxic encephalopathy. Patient's prognosis is poor. Conservative supportive treatment is recommended. MMODL / IJN: [id number] /
[2018-01-04] MEDS: VALPROATE SODIUM 500 MG in SODIUM CHLORIDE 0.9% 50 ML IVPB SCH ×2 (01:22→08:09)
[2018-01-04] MEDS: HEPARIN SODIUM,PORCINE 5,000 UNIT/ML 1 ML VIAL SQ SCH ×2 (01:22→11:06)
[2018-01-04 01:26] LABS: Glucose,Whole Blood 102 mg/dL (75-99)
[2018-01-04] MEDS: INSULIN ASPART 100 UNIT/ML 1 ML 10 ML VIAL SQ SCH ×3 (01:31→12:32)
[2018-01-04 04:56] LABS: Basophils % (A) 0 %; Eosinophils % (A) 0 %; HCT 23.8 % (39.0-53.0); HGB 7.5 gm/dL (13.0-17.5); Hypochromasia Slight; Lymphocytes # (A) 0.5 k/uL (1.0-4.8); Lymphocytes % (A) 3 %; MCH 28.8 pg (25.0-35.0); MCHC 31.6 g/dL (31.0-37.0); MCV 91.1 fL (80.0-100.0); Mean Platelet Volume 7.9; Monocytes # (A) 0.6 k/uL (0-1.0); Monocytes % (A) 4 %; Neutrophils # (A) 12.5 k/uL (1.3-7.7); Neutrophils % (A) 90 %; Platelet Count 293 k/uL (150-450); RBC 2.62 m/uL (4.30-5.90); WBC 13.9 k/uL (3.8-10.6)
[2018-01-04 05:03] LABS: ABG Base Excess 2.9 mmol/L; ABG HCO3 27 mmol/L (21-25); ABG Oxygen Saturation 99.1 % (94-97); ABG PCO2 42 mmHg (35-45); ABG PH 7.43 (7.35-7.45); ABG PO2 137 mmHg (83-108); ABG TCO2 29 mmol/L (19-24)
[2018-01-04 05:18] LABS: Calcium 8.3 mg/dL (8.4-10.2); Magnesium 2.1 mg/dL (1.6-2.3); Phosphorus 5.8 mg/dL (2.5-4.5); Potassium 4.5 mmol/L (3.5-5.1)
[2018-01-04 05:23] LABS: Valproic Acid (Depakene) 39.6 ug/mL
--- NOTE | 2018-01-04 06:29 | XR ---
EXAMINATION TYPE: XR chest 1V portable DATE OF EXAM: 01/04/2018 HISTORY: Tube placement. REFERENCE: Previous study dated 01/03/2018. FINDINGS: The patient is ET tube is low-lying, 1.7 cm above the luzma and should be withdrawn slight ly. The patient is NG tube and left subclavian catheter remain in place unchanged in appearance. The heart is prominent. There is vascular congestion without jace edema. There is left basilar airsp ana disease. There is a left-sided effusion. IMPRESSION: 1. LOW-LYING ET TUBE. 2. CARDIOMEGALY AND VASCULAR CONGESTION. 3. LEFT BASILAR AIRSPACE DISEASE WITH CONCOMITANT EFFUSION.
[2018-01-04] MEDS: CALCIUM ACETATE 667 MG CAP PO SCH ×2 (07:37→12:32)
[2018-01-04] MEDS: IPRATROPIUM-ALBUTEROL 3 ML NEB INHALATION SCH ×3 (07:53→16:56)
[2018-01-04] MEDS: PANTOPRAZOLE 40 MG/10 ML VIAL IVP SCH (08:10)
[2018-01-04] MEDS: SODIUM CHLORIDE 0.9% 1,000 ML IV SCH (08:10)
[2018-01-04] MEDS: CHLORHEXIDINE GLUCONATE 15 ML CUP MUCOUS MEM SCH (08:10)
[2018-01-04] MEDS: PIPERACILLIN-TAZOBACTAM 3.375 GM in DEXTROSE/WATER 1 50ML.BAG IVPB SCH (08:10)
--- NOTE | 2018-01-04 08:47 | P.PN ---
Subjective Progress Note Date: 01/04/18 72-year-old male patient, known history of end-stage renal disease on hemodialysis through a AV fistula in the left upper extremity, in addition to history of chronic atrial fibrillation and the patient has undergone a watchman' s procedure, congestion heart failure/diastolic dysfunction and hyperlipidemia, presented to the emergency department with a cardiac arrest. The patient was at home with his significant other. He was using a walker and he was trying to go down the steps. He called his significant other and he told her that he was not feeling well. Following that the significant other heard a noise and apparently the patient got colds at the edge of the carpet while utilizing the walker and he fell on the steps and he was found to be on the top 3 steps on his home staircase. He was still conscious. The significant other came in for help however she was unable to move the patient. By that time she decided to call EMS. Sometime between the phone call and EMS arrival the patient lost consciousness. The exact duration of the loss of consciousness and cardiac pulmonary arrest is not known. At the time of arrival, the patient was found to be in asystole. CPR was initiated and the patient was given a dose of epinephrine. The patient was then brought into the emergency department and upon arrival he was still receiving CPR. He arrived to the ED and another 14 minutes of resuscitation was done during which the patient received 3 additional dose of epinephrine for a PEA rhythm. The patient was intubated. After 40 minutes of resuscitation the patient had return of circulation and blood pressure was obtained. Immediately triple-lumen catheter was inserted and the patient was started on pressors and currently the patient on 8 mics of norepinephrine infusion. The patient is in atrial fibrillation rhythm. CAT scan of the brain was done and a CAT scan of the C-spine showed no abnormalities. No evidence of any intracranial hemorrhage or any acute ischemic changes or mass effect or any fluid collection. The patient also had a CAT scan of the chest abdomen and pelvis which showed diffuse anasarca and ascites in addition to a cirrhotic morphology of the liver. There was also a hydropic gallbladder. Soft tissue nodularity along the right paramedial anterior peritoneal lining that raised the suspicion for any focal hemorrhage in the peritoneal space. There was also concern for a 4 cm intramuscular hemorrhage or an underlying mass in the left iliac area/muscle. Another indeterminate 2.3 cm round soft tissue lesion in the posterior left pararenal space of an unknown significance. I evaluated this patient in the emergency department. The patient was completely unresponsive. He was comatose. He was not withdrawing to painful stimulation. He was in a mechanical ventilator on assist control mode of ventilation. The patient had a Duran catheter with minimal amount of urine output thus far. In general he does not produce significant amount of urine output. The patient had no leukocytosis. Hemoglobin was at 9.9. The patient' s potassium level at time of admission was 5.6. The patient had a BUN of 19 and a creatinine of 7.9. His initial lactic acid level was at 9.1. LFT showed a bilirubin of 0.7 with a AST of 61 and ALT of 19. Post intubation blood gases showed a pH of 7.3 with a pCO2 of 34 and pO2 of more than 400 and this was done and FiO2 of 100%. The BNP level was 50,000+ and the urinalysis showed 33 WBCs. First set of troponin was at 0.035. EKG showed a atrial fibrillation rhythm with a left exudative deviation and right bundle branch block pattern. He was receiving external warming through a bear hugger for a temperature of 95.0F. No seizure activity is noted. On 01/02/2018 the patient is being seen in follow-up in the intensive care unit. 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 He is on no sedation and he remains completely comatose and unresponsive. He does not respond to any painful stimulation throughout his body. Overnight he developed some myoclonic jerks/ myoclonic seizures and for that reason the patient was started on Depakote per neurology's recommendation. EEG is to follow today. A repeat CAT scan of the brain is to follow today. Meanwhile, the patient has a positive corneal reflex , positive gag reflex, positive cough reflex, and possible breathing reflex as he is able to initiate and should've his own breasts. He does have an upward gaze looking to the left and he has a conjugate gaze without any nystagmus. He does occasionally blinking of the eyes. The patient is currently normothermic. The ventilator is still in the same setting which includes an assist-control of 12 with a tidal volume of 500 with an FiO2 of 50% and a PEEP of 5. The patient has a pH of 7.44 with a pCO2 of 28 and pO2 185. Chest x-ray shows some limited infiltration of the left lung base otherwise ET tube is in a good location. The patient on empiric antibiotic coverage with IV Zosyn. The patient underwent hemodialysis yesterday without ultrafiltration. His electrolytes show no significant abnormalities. Potassium level is down to 4.8. Creatinine is down to 5.7. Sodium level is at 138. Phosphorus level is at 5.1. The patient is currently off pressors and hemodynamically stable. His receiving normal saline at rate of 75 mL an hour. The patient also started developing some liquidy bowel movements/diarrhea and currently has an FMS system attached and the total amount of stool collected was 200 mL over the past shift. On 01/03/2018 and seeing this patient for a follow-up. 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 Is completely unresponsive. He is having on and off myoclonic jerks. He has been on no sedation. Jerking rapid activity seen in the right upper extremity consistent with myoclonic seizures. The patient does not follow commands. He does not withdraw to deep painful stimulation. At times he has decerebrate posture. He is currently on valproic acid infusion per neurology. He remains intubated on a mechanical ventilator. Assist-control mode of ventilation. Tidal volume is 500 12 and FiO2 of 40% with a PEEP of 5. The blood gases from today showed a pH of 7.4 with a pCO2 of 40 and pO2 133. White cell count is at 15.4. Rest of the electrodes are all within normal limits. Patient has dialysis-dependent renal failure the patient's BUN is at 82 with a creatinine of 6.5. Chest x-ray showing adequate expansion of both lungs. It ET tube is in a good location. The patient has a left basilar pulmonary infiltrate consistent with some early pneumonia and the patient is currently on IV Zosyn. The patient is also on norepinephrine infusion at 1 g per KG pigmented minutes for blood pressure support. Urine output is low and the patient is oliguric at this stage consistent with his renal failure. He is receiving IV fluids with 0.9 saline at the rate of 75 mL an hour. EEG was performed and the results are still pending for now. Neurologist on the case. On today's evaluation of 01/04/2013, the patient remains completely unresponsive , the patient is comatose, still having some myoclonic jerks specially in the right upper extremity. On today's evaluation, the patient does not have any corneals or gag reflex. These were elicited yesterday and absent today. He does have a minimal response to light and the pupils are 2-3 mm in size and rolled upwards. No response to deep painful stimulation. There is a breathing reflex and the patient can initiate spontaneous breaths. The patient was seen by neurology and EEG showed moderate to severe encephalopathy. There was occasional sharp spikes in addition and the patient was placed on Depakote and the levels are being adjusted by neurology. Currently the patient is on thousand milligrams of Depakote twice a day and the Depakote level from today is still subtherapeutic at 39.6. The patient is hemodynamically stable. The patient is currently off pressors. The patient underwent hemodialysis yesterday. The patient is afebrile. He is on assist control mode of ventilation at the rate of 12, FiO2 of 40% with a PEEP of 5 and a tidal volume of 500. The blood gases from today showed a pH of 7.43 with a pCO2 of 42 and a pO2 of 137. Chest x-ray shows cardiomegaly. It ET tube is around 1 cm above the luzma. There is also some cardiomegaly and pulmonary vascular congestion. There is also left basilar airspace disease suspected to be a pneumonia and the patient is currently on IV Zosyn as an empiric antibiotic coverage. Objective - Vital Signs Vital signs: Vital Signs Temp 98.8 F 01/04/18 08:00 Pulse 66 01/04/18 08:03 Resp 14 01/04/18 08:00 BP 148/64 01/03/18 23:34 Pulse Ox 100 01/04/18 08:00 Intake & Output 01/03/18 01/04/18 01/04/18 18:59 06:59 18:59 Intake Total 3360.327 2872.0 150 Output Total 540 321 15 Balance 692.605 779.0 135 Weight 90.7 kg Intake: IV 900.0 1000.0 150 Piperacillin-Tazobactam 3 50.0 50.0 .375 gm In Dextrose/Water 1 50ml.bag @ 12.5 mls/hr IVPB Q12HR [facility] Rx#: [id number] Sodium Chloride 0.9% 1, 750 900 150 000 ml @ 75 mls/hr IV . [id number] [facility] Rx#:[id number] Valproate Sodium 500 mg 100 50 In Sodium Chloride 0.9% 50 ml @ 50 mls/hr IVPB Q8HR [facility] Rx#:[id number] Intake, IV Titration 22.605 Amount Norepinephrine 16 mg In 22.605 Dextrose 5% in Water 250 ml @ Titrate IV .Q0M [facility] Rx#:[id number] Blood Product 10 Other 300 100 Output: Urine 40 21 15 Stool 300 Other 500 Other: Voiding Method Indwelling Catheter Indwelling Catheter ABP, PAP, CO, CI - Last Documented Arterial Blood Pressure 166/57 - Exam Gen. appearance the patient is currently unresponsive, comatose, calm and comfortable on mechanical ventilator. Orogastric and orotracheal tube are both in place. No signs of any head trauma Head exam was generally normal. There was no scleral icterus or corneal arcus. Mucous membranes were moist. Neck was supple and without jugular venous distension, thyromegaly, or carotid bruits. Carotids were easily palpable bilaterally. There was no adenopathy. Lungs were clear to auscultation and percussion, and with normal diaphragmatic excursion. No wheezes or rales were noted. Heart sounds are irregular S1-S2 and there is no significant murmurs appreciated. Sternum stable clean and intact. Abdominal exam revealed normal bowel sounds. The abdomen was soft, non-tender, and without masses, organomegaly, or appreciable enlargement of the abdominal aorta. The patient has evidence of fluid wave and shifting dullness consistent with an ascites. No direct tenderness or rebound tensile guarding. Extremities revealed diminished pulses bilaterally and there is no cyanosis or clubbing at this point. The patient has a left upper extremity AV fistula. Examination of the skin revealed no evidence of significant rashes, suspicious appearing nevi or other concerning lesions. Neurologically, the patient was developing occasional myoclonic jerks specially in the ER right upper extremity. Pupils are round 2 mm in size sluggish or nonreactive to light. The patient has an upgoing case. The patient has no nystagmus. No corneals. No cough reflex. No gag reflex. There is a breathing reflex on today's evaluation as the patient was placed on a spontaneous breathing trial and he was able to initiate some few breaths spontaneously without any support. As such, he still has a breathing drive. Babinski's are not elicited. Reflexes are equal and symmetrical bilaterally. He remains completely comatose. No response to any deep painful stimulation. No motor activity were function. - Labs CBC & Chem 7: 01/04/18 04:45 01/04/18 04:45 Labs: Abnormal Lab Results - Last 24 Hours (Table) 01/03/18 01/03/18 01/04/18 Range/Units 11:42 18:04 01:24 WBC (3.8-10.6) k/uL RBC (4.30-5.90) m/uL Hgb (13.0-17.5) gm/dL Hct (39.0-53.0) % Neutrophils # (1.3-7.7) k/uL Lymphocytes # (1.0-4.8) k/uL ABG pO2 (83-108) mmHg ABG HCO3 (21-25) mmol/L ABG Total CO2 (19-24) mmol/L ABG O2 Saturation (94-97) % BUN (9-20) mg/dL Creatinine (0.66-1.25) mg/dL POC Glucose (mg/dL) 100 H 105 H 102 H (75-99) mg/dL Calcium (8.4-10.2) mg/dL Phosphorus (2.5-4.5) mg/dL 01/04/18 01/04/18 01/04/18 Range/Units 04:45 04:45 05:00 WBC 13.9 H (3.8-10.6) k/uL RBC 2.62 L (4.30-5.90) m/uL Hgb 7.5 L (13.0-17.5) gm/dL Hct 23.8 L (39.0-53.0) % Neutrophils # 12.5 H (1.3-7.7) k/uL Lymphocytes # 0.5 L (1.0-4.8) k/uL ABG pO2 137 H (83-108) mmHg ABG HCO3 27 H (21-25) mmol/L ABG Total CO2 29 H (19-24) mmol/L ABG O2 Saturation 99.1 H (94-97) % BUN 56 H (9-20) mg/dL Creatinine 5.10 H* (0.66-1.25) mg/dL POC Glucose (mg/dL) (75-99) mg/dL Calcium 8.3 L (8.4-10.2) mg/dL Phosphorus 5.8 H (2.5-4.5) mg/dL Microbiology - Last 24 Hours (Table) 01/01/18 10:44 Blood Culture - Preliminary Blood No Growth after 48 hours 01/01/18 15:40 Gram Stain - Final Sputum Sputum Culture - Final Assessment and Plan Plan: Assessment 1 acute cardiac pulmonary arrest. The patient was in asystole initially and following that he went into a PEA and the down time in between the time that the patient's parents home and emergency department was probably in the order of 20+ minutes. The patient had regained circulation and blood pressure following resuscitation here in the emergency department. Currently is on 8 g of norepinephrine infusion for blood pressure control. Potassium level is at 5.6 and the patient's cardiac rhythm is a fibrillation with a controlled rate. Monitor the patient is intubated on a mechanical ventilator and is unresponsive in a comatose condition while on no sedation. Suspect an underlying component of hypoxic encephalopathy. On 01/02/2018, the patient is post acute cardiac arrest. The patient has signs of severe hypoxic encephalopathy and he remains comatose. He is not completely brain that as the patient has brainstem reflexes. He does not respond to any painful stimulation. He did develop some myoclonic jerks for which she is on Depakote for now. He does have positive corneal reflex and lites reflex and breathing reflex and the gag reflex. The patient is currently on Depakote. EEG is to follow. Repeat CAT scan of the brain is to follow. Hemodynamically doing better on no pressors. He underwent hemodialysis yesterday. He is normothermic for now. On 01/03/2018, the patient is post acute cardiac arrest. He has signs of severe anoxic encephalopathy. He has occasional decerebrate posterior. He is having some occasional myoclonic jerks in the right upper extremity and he remains on Depakote. EEG was done and results are still pending for now. Neurologist on the case. Completely comatose. Does not respond to any deep painful stimulation. Repeat CAT scan of the brain shows diffuse age-related cerebral atrophy without any other acute intracranial process or hemorrhage. On 01/04/2018, the patient's neurologic function is essentially the same. He still having myoclonic jerks on Depakote and the levels of the epicondylar still subtherapeutic. EEG showed moderate to severe encephalopathy with occasional spikes. Neurologic exam is essentially the same, probably worse knowing that he has lost some of his brainstem reflexes in addition. He remains completely unresponsive. This is consistent with severe anoxic encephalopathy post cardiac arrest. Hemodynamically, the patient is currently off pressors. The patient underwent hemodialysis yesterday. He is maintaining his own blood pressure. Afebrile. Electrolytes all within normal limits. 2 acute respiratory failure secondary to cardiac pulmonary arrest and the patient is currently intubated on a mechanical ventilator. 3 small bilateral pleural effusions. May be some limited residual infiltration of the left lung base. Rule out underlying pneumonia and the patient is currently on IV Zosyn 4 End stage renal disease on hemodialysis through an AV fistula in the left upper extremity. The patient has undergone 2 sessions of hemodialysis was 5 and the last dialysis was yesterday with a 500 mL of fluid was taken off during dialysis. 5 diffuse anasarca with large ascites and features of cirrhotic lever based on a CAT scan of the abdomen 6 2.3 cm soft brown tissue lesion in the posterior left pararenal space, etiology is not clear 7 history of hypertension, recovered and the patient is currently off pressors 8 history of congestion heart failure diastolic dysfunction 9 chronic atrial fibrillation and the patient has a watchman's procedure and currently on no anticoagulation 10 gait dysfunction and history of recurrent falls 11 diabetes mellitus with possibly component of diabetic neuropathy 12 hyperlipidemia 13 hyperuricemia/gout. 14 lactic acidosis secondary to cardiac pulmonary arrest. The lactic acid improved and is currently down to 2.3 from a baseline of 9.1. 15, diarrhea, loose with negative for C. diff evaluation. Rule out underlying ischemic colitis post cardiac arrest. Diarrhea still active and the patient hasn't FMS and output in the order of less than 50 mL on a 24-hour period. Plan Prognosis extremely poor. The chances of recovery is slim and probably nonexistent based on the findings. Neurologic exam shows signs of severe anoxic encephalopathy. The patient had a prolonged downtime and he remains deeply comatose and unresponsive. The patient is being supported on mechanical ventilator. He underwent dialysis yesterday. We'll talk with neurology. I do not see the need to repeat another CAT scan of the brain. I think based on his history and clinical findings the patient's chance of recovery is extremely poor and if agreeable and would proceed with comfort care measures. I will talk to the significant other than if needed I'll also contact the. And updated him on the condition.. Care evaluation, more than 32 minutes. Time with Patient: Greater than 30
[2018-01-04] MEDS: GABAPENTIN 100 MG CAP PO SCH (11:06)
[2018-01-04] MEDS: CLOPIDOGREL 75 MG TAB PO SCH (11:06)
[2018-01-04] MEDS: ASPIRIN 81 MG PO SCH (11:06)
[2018-01-04 11:47] LABS: Glucose,Whole Blood 98 mg/dL (75-99)
[2018-01-04 12:33] VITALS: TEMP 98.7
[2018-01-04] MEDS ORDERED: MORPHINE SULFATE 2 MG/ML SYRINGE IV PRN (13:51)
[2018-01-04] MEDS ORDERED: ATROPINE OPHTH SOLN 1% 5ML BTL SUBLINGUAL PRN (13:51)
[2018-01-04] MEDS ORDERED: SCOPOLAMINE 1.5MG/72HR PATCH TRANSDERM PRN (13:51)
--- NOTE | 2018-01-04 14:29 | P.PN ---
Subjective This is a pleasant 72-year-old gentleman patient of Dr. Hope new to the office , Dr. Clarke, Dr. 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 Patient was walking up the steps with his walker, per patient got entangled with his walker, and fell down half way to this 16 step stairs, patient was noted to go in and out of consciousness, was found to be cold and clammy, and diaphoretic. Patient was assisted by the till the bottom of the stairs until she called 911, EMS found him with with asystole cardiac arrest and CPR was performed in the field for approximately 10 minutes prior to his transfer to the [facility], he received epinephrine and atropine, did not require cardioversion, currently now in the emergency room, nonresponsive to a full stimuli, mechanically vented anticipating his admission to ICU unless other circumstances prevents this admission here. I was notified by Dr. Martinez that the patient was in the emergency room, I discuss it with ER physician Dr. Gutiérrez, imaging studies are still pending, patient might be transferred to another facility should there be any intracranial hemorrhage noted. Awaiting final imaging and laboratory studies, prior to ICU transfer. Patient currently is in the emergency room when evaluated, intubated mechanically, As per the , patient is on Plavix and aspirin, and last dose of Plavix was 12/31/2017 for the watchman procedure, he was on Coumadin 45 days then maintained on Plavix aspirin for 4 months as per protocol for the watchman procedure. He was last admitted at [facility] for aspiration pneumonia October 2017, was last seen by Dr. Carolina 11/07/2017, no medication changes were made, last A1c was 6.0. He also had an EGD by Dr. Bonner, approximately 2 weeks ago secondary to liver cirrhosis, no liver biopsy performed, patient has ascites. In the emergency room, CT of the brain shows no evidence of acute intracranial hemorrhage or acute ischemic change or mass effect mild ventriculomegaly noted secondary to central cerebral atrophy, CT of the chest abdomen pelvis, showed diffuse anasarca, borderline cardiomegaly without pericardial effusion, 2.5 cm mixed density along the expected course of the proximal circumflex, ascending aorta 3.5 cm without dissection, small left trace right pleural effusion, atelectasis, also by granulomas, scattered nonenlarged mediastinal lymph nodes, adrenals and spleen and crisscrossed normal, hydropic gallbladder 4.7 cm, nodular liver, no focal liver lesion, 2.3 nodule left pararenal space bilateral kidneys are atrophic, exophytic 1.4 cm lesion lateral left kidney too small to characterize, possible cyst increased density expanding the left iliac 4 cm possibly intermuscular hemorrhage or underlying mass, soft tissue sandra laboratory data along the right paramedian anterior peritoneal lining could flex small area of focal hemorrhage in the per 20or soft tissue deposit from metastatic disease, indeterminate 2.3 cm round soft tissue lesion posterior left pararenal space cannot exclude neoplastic keep urology, short-term interval follow-up recommended, 2.5 cm partially calcified lesion proximal circumflex artery suspicious for coronary artery aneurysm. Symptoms prior to admission included diarrhea for 1 week duration, however he also saw Dr. Bonner for chronic diarrhea 3 years celiac panel was requested along with hepatitis C AFP serum plasmin level SANG. denies fever no chills no abdominal pain, patient is maintained on hemodialysis Saturdays, but he completed Augmentin for the aspiration pneumonia that was initially prescribed 11/01/2017, and prior to that he received clindamycin for 5 days 01/02:Patient remains in the intensive care unit. He is currently off vasopressors. There is concern for anoxic encephalopathy. EEG is to be done. CT of the brain done on January 02 shows no acute findings. Vision has been started on Valproate IV piggyback by Dr. Garcia. Vision is currently on antibiotics in form of a set her myosin and Zosyn. Equal management system was placed. Echocardiogram revealed EF of 50-55% with mild concentric left ventricular hypertrophy, left atrium moderately dilated, mild aortic valve sclerosis, mild mitral regurgitation, mild tricuspid regurgitation, no pulmonary hypertension. Repeat chest x-ray shows NG tube withdrawn and low tip was located in the gastroesophageal junction region. No acute pulmonary process. Family members are at the bedside and updated. 01/03 patient examined bedside. He is currently on norepinephrine. He is unable to respond to pain or questions. Pupils are responsive. Patient continues to have myoclonic jerk in the right upper extremity he does seem to have a gag reflux. Overall prognosis appears to be poor. Neurology evaluated the patient. EEG with low seizure threshold but no active seizures seen. Repeat CT with no acute intracranial processes. Patient may benefit from CT and chewing of the head to look for anoxic brain injury. Family discussion need to be initiated for withdrawal of care. Patient remains on hemodialysis 01/04 was stopped patient examined bedside. No pupil responds seen today. Patient has no myoclonic jerks. He is not responding to painful stimuli. Continues to have spontaneous breaths. Patient is not able to maintain spontaneous breathing off ventilator even for less than a minute. Comfort care should be initiated. Family members at bedside Objective - Vital Signs Vital signs: Vital Signs Temp 98.7 F 01/04/18 12:00 Pulse 75 01/04/18 12:00 Resp 14 01/04/18 12:00 BP 148/64 01/03/18 23:34 Pulse Ox 99 01/04/18 12:00 Intake & Output 01/03/18 01/04/18 01/04/18 18:59 06:59 18:59 Intake Total 4639.832 6109.0 575.0 Output Total 540 321 20 Balance 692.605 779.0 555.0 Weight 90.7 kg Intake: IV 900.0 1000.0 475.0 Piperacillin-Tazobactam 3 50.0 50.0 50.0 .375 gm In Dextrose/Water 1 50ml.bag @ 12.5 mls/hr IVPB Q12HR GARY Rx#: [id number] Sodium Chloride 0.9% 1, 750 900 375 000 ml @ 75 mls/hr IV . [id number] GARY Rx#:[id number] Valproate Sodium 500 mg 100 50 50 In Sodium Chloride 0.9% 50 ml @ 50 mls/hr IVPB Q8HR GARY Rx#:[id number] Intake, IV Titration 22.605 Amount Norepinephrine 16 mg In 22.605 Dextrose 5% in Water 250 ml @ Titrate IV .Q0M GARY Rx#:[id number] Blood Product 10 Other 300 100 100 Output: Urine 40 21 20 Stool 300 Other 500 Other: Voiding Method Indwelling Catheter Indwelling Catheter Indwelling Catheter ABP, PAP, CO, CI - Last Documented Arterial Blood Pressure 148/44 - Exam - Constitutional General appearance: Present: average body habitus, no acute distress. Nonresponsive to pain Absent: severe distress - EENT Eyes: Absent: scleral icterus ENT: Present: other (ET and oral gastric tube in place)negative gag reflex - Neck Neck: Present: normal ROM. Absent: rigidity, thyromegaly - Respiratory Respiratory: bilateral: CTA, negative: rales, rhonchi, wheezing - Cardiovascular Rhythm: irregularly irregular Heart sounds: normal: S1, S2 Abnormal Heart Sounds: Absent: systolic murmur, diastolic murmur - Gastrointestinal General gastrointestinal: Present: normal bowel sounds. Absent: hepatomegaly, tenderness - Neurologic Neurologic: Absent: CNII-XII intact - Musculoskeletal Musculoskeletal: Absent: gait normal, generalized weakness, strength equal bilaterally, right sided weakness, left sided weakness might positive for myoclonic jerks on the right upper extremity with decerebrate positioning - Psychiatric Psychiatric: Absent: A&O x's 3, appropriate affect, intact judgment & insight - Labs CBC & Chem 7: 01/04/18 04:45 01/04/18 04:45 Labs: Abnormal Lab Results - Last 24 Hours (Table) 01/03/18 01/04/18 01/04/18 Range/Units 18:04 01:24 04:45 WBC (3.8-10.6) k/uL RBC (4.30-5.90) m/uL Hgb (13.0-17.5) gm/dL Hct (39.0-53.0) % Neutrophils # (1.3-7.7) k/uL Lymphocytes # (1.0-4.8) k/uL ABG pO2 (83-108) mmHg ABG HCO3 (21-25) mmol/L ABG Total CO2 (19-24) mmol/L ABG O2 Saturation (94-97) % BUN 56 H (9-20) mg/dL Creatinine 5.10 H* (0.66-1.25) mg/dL POC Glucose (mg/dL) 105 H 102 H (75-99) mg/dL Calcium 8.3 L (8.4-10.2) mg/dL Phosphorus 5.8 H (2.5-4.5) mg/dL 01/04/18 01/04/18 Range/Units 04:45 05:00 WBC 13.9 H (3.8-10.6) k/uL RBC 2.62 L (4.30-5.90) m/uL Hgb 7.5 L (13.0-17.5) gm/dL Hct 23.8 L (39.0-53.0) % Neutrophils # 12.5 H (1.3-7.7) k/uL Lymphocytes # 0.5 L (1.0-4.8) k/uL ABG pO2 137 H (83-108) mmHg ABG HCO3 27 H (21-25) mmol/L ABG Total CO2 29 H (19-24) mmol/L ABG O2 Saturation 99.1 H (94-97) % BUN (9-20) mg/dL Creatinine (0.66-1.25) mg/dL POC Glucose (mg/dL) (75-99) mg/dL Calcium (8.4-10.2) mg/dL Phosphorus (2.5-4.5) mg/dL Microbiology - Last 24 Hours (Table) 01/01/18 10:44 Blood Culture - Preliminary Blood No Growth after 72 hours Assessment and Plan Plan: 1. Syncope with Cardiac arrest, malignant arrhythmias need to be ruled out, known history of atrial fibrillation, status post watchman procedure, patient cannot be anticoagulated secondary to epistaxis, patient currently is mechanically and related secondary to acute respiratory failure Dr. Martinez and Dr. Lechuga consulted, other causes of the cardiac arrest could be pulmonary emboli rather than acute neurologic events such as seizure or CVA. follow-up CAT scan next 24-48 hours NEGATIVE , EEG of the brai NEGATIVE , echocardiogram with EF 50 -55 %, and also will be evaluated for obstructive coronary artery disease,. comfort care now 2. Transient hypotension secondary to cardiovascular collapse, pressor agents has been provided sepsis cannot be ruled out, acute UTI with suspected hospital- acquired pneumonia and left infiltrate, along with adrenal sufficiency 3. 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 Dukes 4. Acute hypoxemic respiratory failure secondary to cardiac arrest and suspected hospital-acquired pneumonia, patient currently is mechanically ventilated Dr. Lechuga following closely 5. Atrial fibrillation, chronic status post watchman procedure for occlusion of left atrial appendage July 2017, not requiring any long-term anticoagulation, on aspirin. Plavix should have been completed as of 2017 cardiology following 6. Liver cirrhosis, ascites this was recently investigated by Dr. Bonner at [facility] November 2017 with elevated alkaline phosphatase level, elevated serial plasmin level, elevated alpha-1 antitrypsin, and elevated ferritin levels at 2200, other test that was negative include SANG, hepatitis panel was negative, for both B, and C. No liver biopsy performed 7. Acute on Chronic diarrhea with negative celiac reflex panel, was seen by Dr. Gallardo recently, however with recent antibiotic exposure Augmentin and clindamycin 6 weeks prior to admission, C. diff toxin would be evaluated 8. Left lower lobe infiltrate, gram-negative pneumonia along with aspiration pneumonia is suspected, history of aspiration pneumonia last October 2017, [facility]. Diabetes mellitus with last hemoglobin A1c of 5.3, history of hypoglycemia, with his current syncopal events, hypoglycemic events and complications the to be monitored 10. Head concussion with falling from the stairs, CAT scan of the brain failed to reveal any acute bleed or ischemic infarcts, cervical CT failed to reveal any fractures patient is on aspirin for anticoagulation, recently completed Plavix as of 12/31/2017, patient would repeat a CAT scan in the brain next 24 hours 11. Generalized anasarca. 12. Moderate protein calorie malnutrition with mild to moderate protein deficiency, nutritional requirements will be reevaluated next 24 hours 13. Mild troponin elevation possibly related to cardiac arrest, however secondary ischemic event cannot be ruled out cardiology following, no immediate need for cardiac cath was anticipated by cardiology, continue for close surveillance 14. Acute urinary tract infection, so seen to be initiated urine cultures and blood cultures have been sent as hospital-acquired pneumonia is suspected 15. Acute anoxic encephalopathy. Neurology is on. CAT scan brain showed no acute findings. Patient is on Valproate IVPB 500mg every 12 hours. DVT prophylaxis, RALPH montes, patient's high risk with known history of liposarcoma , as well as debility, however with recent head concussion going to delay with chemical anticoagulation till after the second CAT scan will be done 14. GI prophylaxis Prognosis poor CODE STATUS patient switch to comfort care today Discharge plan: comfort care. Goal of care discussion initiated iw family
[2018-01-04] MEDS ORDERED: ONDANSETRON 4 MG/2 ML VIAL IVP PRN (14:30)
--- NOTE | 2018-01-04 14:52 | PN ---
PROGRESS NOTE Patient is seen for followup for end-stage renal disease. The patient remains intubated. Family is present at bedside and they have decided to proceed with terminal wean. PHYSICAL EXAMINATION: Blood pressure is 148/44 earlier today, heart rate 75 per minute. Patient is afebrile. Examination of the heart S1, S2. Examination of the lungs bilateral breath sounds are heard. Abdomen is soft, nontender. Examination of lower extremity shows no evidence of edema. Patient remains unresponsive without any sedation. LABS: Shows hemoglobin 7.5, potassium 4.5, sodium 139. ASSESSMENT: 1. End-stage renal disease, on hemodialysis on a Friday, , Friday schedule. 2. Status post cardiac arrest. 3. Severe anoxic encephalopathy. 4. Vent dependent respiratory failure. PLAN: 1. No further dialysis. 2. Agree with plans for terminal wean. KEIRY / JACEK: [id number] /
--- NOTE | 2018-01-04 17:10 | P.PN ---
Subjective Progress Note Date: 01/04/18 Principal diagnosis: Patient is a 72-year-old male who is being followed by the neurology service for unresponsiveness status post cardiac arrest. Patient has a history of chronic atrial fibrillation, end-stage renal disease on hemodialysis, congestive heart failure, and hyperlipidemia. Patient was trying to use a walker to go up the stairs at home. states he got tripped up in his walker and fell down a few stairs. tried to guide him down the steps and found that he was unable to move. called the EMS. When EMS arrived at the patient he was unconscious. Amount of time patient had loss of consciousness and cardiopulmonary arrest is not known. Patient was brought to [facility] for further evaluation. Patient was found to be in asystole on arrival. CPR was initiated and patient was given epinephrine. Patient was intubated and placed on mechanical ventilation. Patient was resuscitated for approximately 40 minutes before return of circulation. Computed tomography scan of the brain was done on arrival which showed no evidence of any intracranial hemorrhage. Computed tomography scan of the cervical spine was done which showed no abnormalities. Patient remains intubated on mechanical ventilation in the intensive care unit setting. Patient is not responsive to painful stimuli. Staff informs me patient occasionally breathes over the vent and has a mild cough and gag reflex. Patient was showing some muscle jerking and he was started on Depakote. EEG did show occasional sharp spikes consistent with reduced seizure threshold. EEG also showed moderate to severe encephalopathy. This is consistent with a poor prognosis. At the time of my evaluation, patient is undergoing hemodialysis and appears to be in no acute distress. 01/04/2018 Patient is a 72-year-old male who is being followed by the neurology service for altered mental status following cardiac arrest. Patient was brought to [facility] in full cardiac arrest. Patient has been in the ICU, intubated, and on mechanical ventilation. Patient has not shown any improvement in status. Patient does not respond to painful stimuli. Patient has no pupil response was a conjugate gaze. Family has decided to initiate comfort care. Objective - Vital Signs Vital signs: Vital Signs Temp 98.7 F 01/04/18 12:00 Pulse 87 01/04/18 16:00 Resp 18 01/04/18 16:00 BP 148/64 01/03/18 23:34 Pulse Ox 91 L 01/04/18 16:00 Intake & Output 01/03/18 01/04/18 01/04/18 18:59 06:59 18:59 Intake Total 6856.925 3783.0 800.0 Output Total 540 321 120 Balance 692.605 779.0 680.0 Weight 90.7 kg Intake: IV 900.0 1000.0 700.0 Piperacillin-Tazobactam 3 50.0 50.0 50.0 .375 gm In Dextrose/Water 1 50ml.bag @ 12.5 mls/hr IVPB Q12HR GARY Rx#: [id number] Sodium Chloride 0.9% 1, 750 900 600 000 ml @ 75 mls/hr IV . [id number] GARY Rx#:[id number] Valproate Sodium 500 mg 100 50 50 In Sodium Chloride 0.9% 50 ml @ 50 mls/hr IVPB Q8HR GARY Rx#:[id number] Intake, IV Titration 22.605 Amount Norepinephrine 16 mg In 22.605 Dextrose 5% in Water 250 ml @ Titrate IV .Q0M GARY Rx#:[id number] Blood Product 10 Other 300 100 100 Output: Urine 40 21 20 Stool 300 100 Other 500 Other: Voiding Method Indwelling Catheter Indwelling Catheter Indwelling Catheter ABP, PAP, CO, CI - Last Documented Arterial Blood Pressure 85/76 - Exam PHYSICAL EXAM: GENERAL APPEARANCE: Patient is a male who is intubated on mechanical ventilation HEENT: Normocephalic, atraumatic, no obvious facial asymmetry is seen. CARDIOVASCULAR: Irregular rate and rhythm. ABDOMEN: Nontender, nondistended. EXTREMITIES: Show edema but no clubbing. NEUROLOGICAL EXAM: A meaningful neurological exam could not be performed due to patient unresponsiveness. Patient does not withdraw to painful stimuli. Patient has a conjugate gaze with an upward and to the left position. Patient has a mild gag reflex. Patient occasionally breathes above the ventilator. Patient developed some myoclonic jerking movements and Depakote was started. No jace seizure activity noted. - Labs CBC & Chem 7: 01/04/18 04:45 01/04/18 04:45 Labs: Abnormal Lab Results - Last 24 Hours (Table) 01/03/18 01/04/18 01/04/18 Range/Units 18:04 01:24 04:45 WBC (3.8-10.6) k/uL RBC (4.30-5.90) m/uL Hgb (13.0-17.5) gm/dL Hct (39.0-53.0) % Neutrophils # (1.3-7.7) k/uL Lymphocytes # (1.0-4.8) k/uL ABG pO2 (83-108) mmHg ABG HCO3 (21-25) mmol/L ABG Total CO2 (19-24) mmol/L ABG O2 Saturation (94-97) % BUN 56 H (9-20) mg/dL Creatinine 5.10 H* (0.66-1.25) mg/dL POC Glucose (mg/dL) 105 H 102 H (75-99) mg/dL Calcium 8.3 L (8.4-10.2) mg/dL Phosphorus 5.8 H (2.5-4.5) mg/dL 01/04/18 01/04/18 Range/Units 04:45 05:00 WBC 13.9 H (3.8-10.6) k/uL RBC 2.62 L (4.30-5.90) m/uL Hgb 7.5 L (13.0-17.5) gm/dL Hct 23.8 L (39.0-53.0) % Neutrophils # 12.5 H (1.3-7.7) k/uL Lymphocytes # 0.5 L (1.0-4.8) k/uL ABG pO2 137 H (83-108) mmHg ABG HCO3 27 H (21-25) mmol/L ABG Total CO2 29 H (19-24) mmol/L ABG O2 Saturation 99.1 H (94-97) % BUN (9-20) mg/dL Creatinine (0.66-1.25) mg/dL POC Glucose (mg/dL) (75-99) mg/dL Calcium (8.4-10.2) mg/dL Phosphorus (2.5-4.5) mg/dL Microbiology - Last 24 Hours (Table) 01/01/18 10:44 Blood Culture - Preliminary Blood No Growth after 72 hours Assessment and Plan Plan: Impression: 1. Acute cardiopulmonary arrest/unknown downtime 2. Acute respiratory failure on mechanical ventilation 3. End-stage renal disease on hemodialysis 4. Likely anoxic encephalopathy 5. History of atrial fibrillation 6. Diabetes mellitus 7. Myoclonic jerking Recommendations: Patient suffered cardiopulmonary arrest at home and was transferred to [facility] for treatment. Downtime is unclear. Patient most likely suffered anoxic encephalopathy. Patient was intubated and placed on mechanical ventilation on arrival. CT of the brain showed no acute intracranial abnormality. CT showed mild to moderate atrophy with chronic small vessel ischemic changes. CT of the cervical spine showed no acute fracture or malalignment. Repeat CT of the brain showed no intracranial process. Depakote level was 24.2 yesterday. I will increase Depakote to 1000 mg twice a day. Depakote level is 39.6 this morning. EEG showed recurrent spikes consistent with low seizure threshold. EEG also showed moderate to severe encephalopathy. This is consistent with a poor prognosis. Due to EEG results and increased twitching, I will increase Depakote as mentioned above. I spoke with the family at length regarding prognosis. I explained to them the chance of a meaningful neurological recovery was slim. Continue current ICU support. Patient is a care. I will continue to follow with you on an as- needed basis. Feel free to call with any questions or concerns. I performed an examination of the patient and discussed the management with the EQUAL OPPORTUNITY REPRESENTATIVE. I have reviewed the EQUAL OPPORTUNITY REPRESENTATIVE notes and agree with the findings and plan of care.
[2018-01-04] MEDS: MORPHINE SULFATE (100 MG/2 ML) 100 MG in SODIUM CHLORIDE 0.9% 100 ML IV SCH (17:20)
[2018-01-04 20:22] VITALS: BP 145/78; PULSE 82
[2018-01-05 03:01] VITALS: RESP 8
[2018-01-05] MEDS: MORPHINE SULFATE (100 MG/2 ML) 100 MG in SODIUM CHLORIDE 0.9% 100 ML IV SCH (05:11)
--- NOTE | 2018-01-05 10:01 | EEG ---
ELECTROENCEPHALOGRAM REPORT DATE OF SERVICE: 01/02/2018. REASON FOR TESTING: Altered mental status, status post cardiac arrest. DESCRIPTION OF THE PROCEDURE: This EEG was performed using a 21 channel digital electroencephalograph, following international 10-20 system. DESCRIPTION OF THE RECORDING: From the beginning of the tracing, and with patient's eyes closed, the background rhythm was mostly consisting of 5-6 hertz theta frequency in the posterior occipital leads. Occasional slowing into the delta range is seen. Recurrent spikes are seen. Photic stimulation was performed with no driving response seen. No pathological waves were elicited. Hyperventilation was not performed. No generalized epileptiform discharges were seen. His EKG lead showed an irregularly irregular rhythm with a normal rate. INTERPRETATION: This EEG is abnormal due to the presence of recurrent spikes, consistent with epileptic activity. No generalized seizure activity is seen. The study was also consistent with moderate to severe encephalopathy. Clinical correlation is recommended. MMBRODY / JACEK: [id number] /
--- NOTE | 2018-01-09 15:24 | P.DS ---
Providers Date of admission: 01/01/18 13:15 Expected date of discharge: 01/05/18 Attending physician: Kalina Benítez Consults: 01/01/18 13:16 Consult Physician Routine Consulting Provider: Alicja Lechuga Consult Reason/Comments: cardiac arrest, VDRF Do you want consulting provider notified?: Already Contacted 01/01/18 14:00 Consult Physician Routine Consulting Provider: Lucille Dukes Consult Reason/Comments: hemodialysis, esrd Do you want consulting provider notified?: Yes 01/01/18 14:03 Consult Physician Urgent Consulting Provider: Jessica Garcia Consult Reason/Comments: cardiac arrest Do you want consulting provider notified?: Yes 01/01/18 15:03 Consult Physician Routine Consulting Provider: Roslyn Martinez Consult Reason/Comments: cardiac arrest, afib Do you want consulting provider notified?: Already Contacted Primary care physician: [facility] Course: This is a pleasant 72-year-old gentleman patient of Dr. Hope new to the office , Dr. Clarke, Dr. 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 Patient was walking up the steps with his walker, per patient got entangled with his walker, and fell down half way to this 16 step stairs, patient was noted to go in and out of consciousness, was found to be cold and clammy, and diaphoretic. Patient was assisted by the till the bottom of the stairs until she called 911, EMS found him with with asystole cardiac arrest and CPR was performed in the field for approximately 10 minutes prior to his transfer to the [facility], he received epinephrine and atropine, did not require cardioversion, currently now in the emergency room, nonresponsive to a full stimuli, mechanically vented anticipating his admission to ICU unless other circumstances prevents this admission here. I was notified by Dr. Martinez that the patient was in the emergency room, I discuss it with ER physician Dr. Gutiérrez, imaging studies are still pending, patient might be transferred to another facility should there be any intracranial hemorrhage noted. Awaiting final imaging and laboratory studies, prior to ICU transfer. Patient currently is in the emergency room when evaluated, intubated mechanically, As per the , patient is on Plavix and aspirin, and last dose of Plavix was 12/31/2017 for the watchman procedure, he was on Coumadin 45 days then maintained on Plavix aspirin for 4 months as per protocol for the watchman procedure. He was last admitted at [facility] for aspiration pneumonia October 2017, was last seen by Dr. Carolina 11/07/2017, no medication changes were made, last A1c was 6.0. He also had an EGD by Dr. Bonner, approximately 2 weeks ago secondary to liver cirrhosis, no liver biopsy performed, patient has ascites. In the emergency room, CT of the brain shows no evidence of acute intracranial hemorrhage or acute ischemic change or mass effect mild ventriculomegaly noted secondary to central cerebral atrophy, CT of the chest abdomen pelvis, showed diffuse anasarca, borderline cardiomegaly without pericardial effusion, 2.5 cm mixed density along the expected course of the proximal circumflex, ascending aorta 3.5 cm without dissection, small left trace right pleural effusion, atelectasis, also by granulomas, scattered nonenlarged mediastinal lymph nodes, adrenals and spleen and crisscrossed normal, hydropic gallbladder 4.7 cm, nodular liver, no focal liver lesion, 2.3 nodule left pararenal space bilateral kidneys are atrophic, exophytic 1.4 cm lesion lateral left kidney too small to characterize, possible cyst increased density expanding the left iliac 4 cm possibly intermuscular hemorrhage or underlying mass, soft tissue sandra laboratory data along the right paramedian anterior peritoneal lining could flex small area of focal hemorrhage in the per 20or soft tissue deposit from metastatic disease, indeterminate 2.3 cm round soft tissue lesion posterior left pararenal space cannot exclude neoplastic keep urology, short-term interval follow-up recommended, 2.5 cm partially calcified lesion proximal circumflex artery suspicious for coronary artery aneurysm. Symptoms prior to admission included diarrhea for 1 week duration, however he also saw Dr. Bonner for chronic diarrhea 3 years celiac panel was requested along with hepatitis C AFP serum plasmin level SANG. denies fever no chills no abdominal pain, patient is maintained on hemodialysis Saturdays, but he completed Augmentin for the aspiration pneumonia that was initially prescribed 11/01/2017, and prior to that he received clindamycin for 5 days 01/02:Patient remains in the intensive care unit. He is currently off vasopressors. There is concern for anoxic encephalopathy. EEG is to be done. CT of the brain done on January 02 shows no acute findings. Vision has been started on Valproate IV piggyback by Dr. Garcia. Vision is currently on antibiotics in form of a set her myosin and Zosyn. Equal management system was placed. Echocardiogram revealed EF of 50-55% with mild concentric left ventricular hypertrophy, left atrium moderately dilated, mild aortic valve sclerosis, mild mitral regurgitation, mild tricuspid regurgitation, no pulmonary hypertension. Repeat chest x-ray shows NG tube withdrawn and low tip was located in the gastroesophageal junction region. No acute pulmonary process. Family members are at the bedside and updated. 01/03 patient examined bedside. He is currently on norepinephrine. He is unable to respond to pain or questions. Pupils are responsive. Patient continues to have myoclonic jerk in the right upper extremity he does seem to have a gag reflux. Overall prognosis appears to be poor. Neurology evaluated the patient. EEG with low seizure threshold but no active seizures seen. Repeat CT with no acute intracranial processes. Patient may benefit from CT and chewing of the head to look for anoxic brain injury. Family discussion need to be initiated for withdrawal of care. Patient remains on hemodialysis 01/04 was stopped patient examined bedside. No pupil responds seen today. Patient has no myoclonic jerks. He is not responding to painful stimuli. Continues to have spontaneous breaths. Patient is not able to maintain spontaneous breathing off ventilator even for less than a minute. Comfort care should be initiated. Family members at bedside. Patient on the morning of January 05. They see nursing documentation for details. Discharge diagnoses: 1. Syncope with Cardiac arrest, malignant arrhythmias need to be ruled out, causes of the cardiac arrest could be pulmonary emboli rather than acute neurologic events such as seizure or CVA. 2. Transient hypotension secondary to cardiovascular collapse secondary to cardiogenic shock and septic shock, 3. 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 Acute hypoxemic respiratory failure secondary to cardiac arrest and suspected hospital-acquired pneumonia\ 5. Atrial fibrillation, chronic status post watchman procedure for occlusion of left atrial appendage July 2017, not requiring any long-term anticoagulation, \ 6. Liver cirrhosis, ascites 7. Acute on Chronic diarrhea with negative 8. Left lower lobe infiltrate, gram-negative pneumonia along with aspiration pneumonia 9. Diabetes mellitus with last hemoglobin A1c of 5.3, history of uncontrolled due to hypoglycemia 10. Head concussion with falling from the stairs, CAT scan of the brain failed to reveal any acute bleed or ischemic infarcts, cervical CT failed to reveal any fractures 11. Generalized anasarca. 12. Moderate protein calorie malnutrition with mild to moderate protein deficiency 13. Mild troponin elevation possibly related to cardiac arrest, however secondary ischemic event cannot be ruled out 14. Acute urinary tract infection 15. Acute anoxic encephalopathy. Impression and plan of care have been directed as dictated by the signing physician. Tamiko March nurse practitioner acting as scribe for signing physician. Patient Condition at Discharge: Undetermined Plan - Discharge Summary Discharge Rx Participant: No New Discharge Prescriptions: No Action Acetaminophen/Diphenhydramine [Tylenol PM 500-25mg] 1 tab PO HS traMADol HCL [Ultram] 50 mg PO Q6HR Simvastatin [Zocor] 20 mg PO HS Omeprazole [PriLOSEC] 40 mg PO DAILY Mupirocin 2% Oint [Bactroban 2% Oint] 1 applic TOPICAL BID Multivits,Th W-Ca,Fe,Oth Min [Therapeutic M] 1 tab PO DAILY Calcium Acetate [Phoslo] 667 mg PO ACHS Midodrine [ProAmatine] 10 mg PO DIRECTED Loratadine [Claritin] 10 mg PO DAILY Ethyl Chloride [place] 1 spray TOPICAL TUTHSA Lisinopril [Zestril] 10 mg PO SUMOWEFR Gabapentin [Neurontin] 100 mg PO DAILY Furosemide [Lasix] 60 mg PO BID Fluticasone Nasal [place] [Flonase Nasal [place]] 2 spr EA NOSTRIL DAILY FLUoxetine HCL [PROzac] 40 mg PO DAILY Aspirin EC [Ecotrin Low Dose] 81 mg PO DAILY Allopurinol [Zyloprim] 100 mg PO DAILY Docusate [Colace] 100 mg PO BID PRN PRN Reason: Constipation amLODIPine [Norvasc] 10 mg PO DAILY Gabapentin [Neurontin] 200 mg PO HS Discharge Medication List Acetaminophen/Diphenhydramine [Tylenol PM 500-25mg] 1 tab PO HS 01/01/18 [ History] Allopurinol [Zyloprim] 100 mg PO DAILY 01/01/18 [History] Aspirin EC [Ecotrin Low Dose] 81 mg PO DAILY 01/01/18 [History] Calcium Acetate [Phoslo] 667 mg PO ACHS 01/01/18 [History] Docusate [Colace] 100 mg PO BID PRN 01/01/18 [History] Ethyl Chloride [place] 1 spray TOPICAL TUTHSA 01/01/18 [History] FLUoxetine HCL [PROzac] 40 mg PO DAILY 01/01/18 [History] Fluticasone Nasal [place] [Flonase Nasal [place]] 2 spr EA NOSTRIL DAILY 01/01/18 [ History] Furosemide [Lasix] 60 mg PO BID 01/01/18 [History] Gabapentin [Neurontin] 100 mg PO DAILY 01/01/18 [History] Gabapentin [Neurontin] 200 mg PO HS 01/01/18 [History] Lisinopril [Zestril] 10 mg PO SUMOWEFR 01/01/18 [History] Loratadine [Claritin] 10 mg PO DAILY 01/01/18 [History] Midodrine [ProAmatine] 10 mg PO DIRECTED 01/01/18 [History] Multivits,Th W-Ca,Fe,Oth Min [Therapeutic M] 1 tab PO DAILY 01/01/18 [History] Mupirocin 2% Oint [Bactroban 2% Oint] 1 applic TOPICAL BID 01/01/18 [History] Omeprazole [PriLOSEC] 40 mg PO DAILY 01/01/18 [History] Simvastatin [Zocor] 20 mg PO HS 01/01/18 [History] amLODIPine [Norvasc] 10 mg PO DAILY 01/01/18 [History] traMADol HCL [Ultram] 50 mg PO Q6HR 01/01/18 [History] Follow up Appointment(s)/Referral(s): Gordon Presley MD [Primary Care Provider] - 1-2 days Discharge Disposition: - Preliminary Cause of Preliminary Cause of : Acute anoxic encephalopathy secondary to cardiac arrest
== END 2018-01-05 07:25 | disposition expired | DRG 871 ==
LOC: EDBD → EC 09:57 → SUPCPDRO 09:57 → 6ICU 13:15 → 5ONC 01-04 20:36
PROVIDERS: ADMIT Family Medicine; ATTEND Family Medicine
PROC: 5A1945Z Respiratory Ventilation, 24-96 Consecutive Hours (ICD-10-PCS; principal; 2018-01-01)
PROC: 0BH17EZ Insertion of Endotracheal Airway into Trachea, Via Natural or Artificial Opening (ICD-10-PCS; 2018-01-01)
PROC: 03HB33Z Insertion of Infusion Device into Right Radial Artery, Percutaneous Approach (ICD-10-PCS; 2018-01-01)
PROC: 02H633Z Insertion of Infusion Device into Right Atrium, Percutaneous Approach (ICD-10-PCS; 2018-01-01)
PROC: 5A1D70Z Performance of Urinary Filtration, Intermittent, Less than 6 Hours Per Day (ICD-10-PCS; 2018-01-01)
DX: A41.9 Sepsis, unspecified organism (principal); J96.01 Acute respiratory failure with hypoxia; J69.0 Pneumonitis due to inhalation of food and vomit; J15.6 Pneumonia due to other Gram-negative bacteria; N18.6 End stage renal disease; R40.20 Unspecified coma; R65.21 Severe sepsis with septic shock; I26.99 Other pulmonary embolism without acute cor pulmonale; G93.1 Anoxic brain damage, not elsewhere classified; S06.0X9A Concussion with loss of consciousness of unspecified duration, initial encounter; E87.4 Mixed disorder of acid-base balance; I13.2 Hypertensive heart and chronic kidney disease with heart failure and with stage 5 chronic kidney disease, or end stage renal disease; I42.9 Cardiomyopathy, unspecified; I50.32 Chronic diastolic (congestive) heart failure; K82.1 Hydrops of gallbladder; R18.8 Other ascites; J98.11 Atelectasis; E44.0 Moderate protein-calorie malnutrition; N39.0 Urinary tract infection, site not specified; R57.0 Cardiogenic shock; J84.10 Pulmonary fibrosis, unspecified; E11.22 Type 2 diabetes mellitus with diabetic chronic kidney disease; I48.2 Chronic atrial fibrillation; E11.649 Type 2 diabetes mellitus with hypoglycemia without coma; E11.40 Type 2 diabetes mellitus with diabetic neuropathy, unspecified; N28.1 Cyst of kidney, acquired; R26.9 Unspecified abnormalities of gait and mobility; E78.5 Hyperlipidemia, unspecified; F32.9 Major depressive disorder, single episode, unspecified; G25.3 Myoclonus; G47.30 Sleep apnea, unspecified; I08.3 Combined rheumatic disorders of mitral, aortic and tricuspid valves; I45.10 Unspecified right bundle-branch block; K21.9 Gastro-esophageal reflux disease without esophagitis; K74.60 Unspecified cirrhosis of liver; M10.9 Gout, unspecified; E83.89 Other disorders of mineral metabolism; R19.7 Diarrhea, unspecified; R40.2430 Glasgow coma scale score 3-8, unspecified time; R77.9 Abnormality of plasma protein, unspecified; R04.0 Epistaxis; Z68.27 Body mass index [BMI] 27.0-27.9, adult; N26.1 Atrophy of kidney (terminal); Z51.5 Encounter for palliative care; Z79.02 Long term (current) use of antithrombotics/antiplatelets; Z79.82 Long term (current) use of aspirin; Z79.899 Other long term (current) drug therapy; Z86.711 Personal history of pulmonary embolism; Z87.01 Personal history of pneumonia (recurrent); Z87.891 Personal history of nicotine dependence; Z99.2 Dependence on renal dialysis; Z85.89 Personal history of malignant neoplasm of other organs and systems; Z86.73 Personal history of transient ischemic attack (TIA), and cerebral infarction without residual deficits; Z91.81 History of falling; Z86.74 Personal history of sudden cardiac arrest; Z98.49 Cataract extraction status, unspecified eye; Z96.1 Presence of intraocular lens; W10.9XXA Fall (on) (from) unspecified stairs and steps, initial encounter; Y92.009 Unspecified place in unspecified non-institutional (private) residence as the place of occurrence of the external cause; I49.8 Other specified cardiac arrhythmias
CPT/HCPCS: 31500; 36415; 36556; 43753; 70450; 71045; 71260; 72125; 74177; 80048; 80053; 80164; 80306; 81001; 82533; 82550; 82553; 82805; 83036; 83605; 83735; 83880; 84100; 84484; 85025; 85610; 86704; 86706; 87040; 87045; 87046; 87070; 87086; 87205; 87324; 87340; 90935; 92950; 93306; 94002; 94003; 94640; 95816; 96365; 96366; 96368; 99291